=== PATIENT | female | born 1955 | race Caucasian/White ===

== ENCOUNTER 2018-01-20 08:54 | Emergency (ER) | payer OTHER, SELFPAY ==
--- NOTE | 2018-01-20 09:33 | ER ---
Nurse's Notes [facility] Name: Mary Estrada Age: 62 yrs Sex: Female : 1955 Arrival Date: 01/20/2018 Time: 08:57 Bed 7 Private MD: Diagnosis: Hydronephrosis with ureteral stricture, not elsewhere classified-bilateral, extensive lymphadenophy;Cellulitis and acute lymphangitis of trunk-right breast;Hypokalemia Presentation: 01/20 09:12 Presenting complaint: Patient states: intermittent swelling to R axilla x 3 weeks, ss redness to R breast x 1 day and swelling to bilateral lower extremities x [address] Wilkinson has ordered a few tests which have come back negative, and also ordered a ultrasound of her breasts, which pt has yet to have. Transition of care: patient was not received from another setting of care. Onset of symptoms is unknown. Care prior to arrival: None. 09:12 Method Of Arrival: Ambulatory ss 09:12 Acuity: SIMEON 3 ss Historical: - Allergies: 10:42 Sulfa (Sulfonamide Antibiotics); ss 10:42 Morphine; ss - Home Meds: 14:02 hydrochlorothiazide 12.5 mg Oral tab 1 tab once daily [Active]; Albuterol Inhl ph [Active]; montelukast 10 mg oral tab 1 tab once daily [Active]; Serevent Inhl [Active]; - PMHx: 09:14 COPD; ss - PSHx: 09:14 Tonsillectomy; ss - Immunization history:: Adult Immunizations up to date. - Social history:: Smoking status: Patient/guardian denies using tobacco. Screenin:08 Abuse screen: Denies threats or abuse. Denies injuries from another. Nutritional ph screening: No deficits noted. Tuberculosis screening: No symptoms or risk factors identified. Fall Risk None identified. Assessment: 10:08 General: Appears in no apparent distress. comfortable, well groomed, Behavior is calm, ph cooperative, appropriate for age, Denies fever, feeling ill. Pain: Complains of pain in right axilla Pain radiates to right breast. Neuro: Level of Consciousness is awake, alert, obeys commands, Oriented to person, place, time, situation. Cardiovascular: Denies chest pain, shortness of breath, Capillary refill < 3 seconds in bilateral fingers Patient's skin is warm and dry. Edema is 3+ to left ankle, left foot, left toes, right ankle, right foot and right toes. Respiratory: Airway is patent Respiratory effort is even, unlabored, Respiratory pattern is regular, symmetrical. GI: Abdomen is round non-distended, Bowel sounds present X 4 quads. Abd is soft and non tender X 4 quads. Reports nausea, Patient currently denies diarrhea, vomiting. Derm: Skin is intact, is healthy with good turgor, Skin is pink, warm \T\ dry. Musculoskeletal: Circulation, motion, and sensation intact. Range of motion: intact in all extremities, R breast noted to be swollen and firm to touch with redness present. 10:45 Reassessment: Dr. Boucher notified of critical lab value, potassium 2.5. General:. ss 11:32 Reassessment: Patient appears in no apparent distress at this time. Patient and/or ph family updated on plan of care and expected duration. Pain level reassessed. Patient is alert, oriented x 3, equal unlabored respirations, skin warm/dry/pink. Pt returned from CT, Dr Acevedo at bedside to speak w/ pt, pt denies pain or nausea at this time, awaiting room assignment. 12:50 Reassessment: Attempted to call report to second floor, receiving nurse unavailable, pt ph taken to CT. 13:20 Reassessment: Patient appears in no apparent distress at this time. Patient and/or ph family updated on plan of care and expected duration. Pain level reassessed. Patient is alert, oriented x 3, equal unlabored respirations, skin warm/dry/pink. Report called to Indira Alonzo RN, awaiting completion of ECHO before being taken to inpatient room. 13:50 Reassessment: Patient appears in no apparent distress at this time. ERP at bedside to speak w/ pt about CT results and need for transfer. Patient denies pain at this time. 14:08 Reassessment: Attempted to call report to [facility] receiving nurse at lunch, asked to ph call back in 10--15 min. 15:20 Reassessment: Patient appears in no apparent distress at this time. Patient and/or ph family updated on plan of care and expected duration. Pain level reassessed. Patient is alert, oriented x 3, equal unlabored respirations, skin warm/dry/pink. [facility] at bedside, pt transferred to [facility] Patient denies pain at this time. Vital Signs: 09:14 BP 151 / 63; Pulse 84; Resp 18; Temp 98.0(TE); Pulse Ox 97% on R/A; Weight 88 kg; ss Height 5 ft. 6 in. (167.64 cm); Pain 5/10; 10:30 BP 138 / 55; Pulse 77; Resp 18; Pulse Ox 99% on R/A; ph 11:34 BP 131 / 71; Pulse 85; Resp 16; Pulse Ox 98% on R/A; ph 12:33 BP 139 / 68; Pulse 81; Resp 18; Temp 98.4; Pulse Ox 96% on R/A; ph 13:51 BP 142 / 70; Pulse 87; Resp 18; Temp 97.9; Pulse Ox 98% on R/A; ph 09:14 Body Mass Index 31.31 (88.00 kg, 167.64 cm) ED Course: 08:57 Patient arrived in ED. as 09:10 Suresh Boucher MD is Attending Physician. fernando 09:13 Triage completed. ss 09:14 Arm band placed on right wrist. ss 09:23 Clara Brothers, CURTIS is Primary Nurse. ph 09:31 Everette Amezquita DO is Hospitalizing Provider. fernando 09:39 X-ray completed. Portable x-ray completed in exam room. Patient tolerated procedure sw well. 09:41 XRAY Chest (1 view) In Process Unspecified. EDMS 09:44 EKG done, by agriculture laboratory technician. reviewed by Suresh Boucher MD. at1 10:00 Initial lab(s) drawn, by nd, sent to lab. First set of blood cultures drawn Second set mh5 of blood cultures drawn by me. 10:04 Inserted saline lock: 22 gauge in left antecubital area, using aseptic technique. Blood mh5 collected. 10:05 Patient taken to ultrasound. aa4 10:08 Patient has correct armband on for positive identification. Placed in gown. Bed in low ph position. Call light in reach. Side rails up X 1. Pulse ox on. NIBP on. Warm blanket given. 12:34 No provider procedures requiring assistance completed. Patient admitted, IV remains in ph place. 12:52 CT completed. Patient tolerated procedure well. Patient moved to CT via stretcher. jg1 Patient moved back from CT. Administered Medications: 10:00 Drug: NS 0.9% 500 ml Route: IV; Rate: bolus; Site: left antecubital; ph 10:00 Drug: fentaNYL (PF) 25 mcg Route: IVP; Site: left antecubital; ph 10:00 Drug: Zofran 4 mg Route: IVP; Site: left antecubital; ph 11:00 Drug: vancoMYCIN 1 grams Route: IVPB; Infused Over: 2 hrs; Site: left antecubital; ph 11:35 Drug: Potassium Chloride 40 mEq Route: PO; ph 11:35 Drug: Potassium Chloride 20 mEq Route: IV; Rate: per protocol; Site: left antecubital; ph Outcome: 09:33 Decision to Hospitalize by Provider. fernando 13:27 ER care complete, transfer ordered by MD. fernando 15:31 Patient left the ED. ph 15:31 Transferred by ground EMS to [facility], Transfer form completed. ph X-rays sent w/ patient. 15:31 Condition: stable Signatures: Dispatcher [employer] EDMS Suresh Boucher MD MD cha Garcia, Tonja jHaley Will Amanda aa4 Susie Walsh, Joan Arciniega RN, airbrush artist photography EKG Tat1 Clara Brothers RN RN Cathy Hidalgo Maria [facility]
--- NOTE | 2018-01-20 09:33 | EDPHYS ---
Physician Documentation [facility] Name: Mary Estrada Age: 62 yrs Sex: Female : 1955 Arrival Date: 01/20/2018 Time: 08:57 Bed 7 Private MD: Suresh Bojorquez HPI: 01/20 09:26 This 62 yrs old Female presents to ER via Ambulatory with complaints of fernando Breast Problem, Feet Swelling, Nausea. 09:26 The patient presents to the emergency department with nausea. fernando Historical: - Allergies: 10:42 Sulfa (Sulfonamide Antibiotics); ss 10:42 Morphine; ss - Home Meds: 14:02 hydrochlorothiazide 12.5 mg Oral tab 1 tab once daily [Active]; Albuterol Inhl ph [Active]; montelukast 10 mg oral tab 1 tab once daily [Active]; Serevent Inhl [Active]; - PMHx: 09:14 COPD; ss - PSHx: 09:14 Tonsillectomy; ss - Immunization history:: Adult Immunizations up to date. - Social history:: Smoking status: Patient/guardian denies using tobacco. ROS: 09:27 Constitutional: Negative for fever, chills, and weight loss, Eyes: Negative for injury, fernando pain, redness, and discharge, ENT: Negative for injury, pain, and discharge, Neck: Negative for injury, pain, and swelling, Cardiovascular: Negative for chest pain, palpitations, and edema, Respiratory: Negative for shortness of breath, cough, wheezing, and pleuritic chest pain, Abdomen/GI: Negative for abdominal pain, nausea, vomiting, diarrhea, and constipation, Back: Negative for injury and pain, : Negative for injury, bleeding, discharge, and swelling, Skin: Negative for injury, rash, and discoloration, Neuro: Negative for headache, weakness, numbness, tingling, and seizure, Psych: Negative for depression, anxiety, suicide ideation, homicidal ideation, and hallucinations, Allergy/Immunology: Negative for hives, rash, and allergies, Endocrine: Negative for neck swelling, polydipsia, polyuria, polyphagia, and marked weight changes, Hematologic/Lymphatic: Negative for swollen nodes, abnormal bleeding, and unusual bruising. 09:27 MS/extremity: Positive for pain, swelling, tenderness, warmth, of the right breast. Exam: 09:27 Constitutional: This is a well developed, well nourished patient who is awake, alert, fernando and in no acute distress. Head/Face: Normocephalic, atraumatic. Eyes: Pupils equal round and reactive to light, extra-ocular motions intact. Lids and lashes normal. Conjunctiva and sclera are non-icteric and not injected. Cornea within normal limits. Periorbital areas with no swelling, redness, or edema. ENT: Nares patent. No nasal discharge, no septal abnormalities noted. Tympanic membranes are normal and external auditory canals are clear. Oropharynx with no redness, swelling, or masses, exudates, or evidence of obstruction, uvula midline. Mucous membranes moist. Neck: Trachea midline, no thyromegaly or masses palpated, and no cervical lymphadenopathy. Supple, full range of motion without nuchal rigidity, or vertebral point tenderness. No Meningismus. Cardiovascular: Regular rate and rhythm with a normal S1 and S2. No gallops, murmurs, or rubs. Normal PMI, no JVD. No pulse deficits. Respiratory: Lungs have equal breath sounds bilaterally, clear to auscultation and percussion. No rales, rhonchi or wheezes noted. No increased work of breathing, no retractions or nasal flaring. Abdomen/GI: Soft, non-tender, with normal bowel sounds. No distension or tympany. No guarding or rebound. No evidence of tenderness throughout. Back: No spinal tenderness. No costovertebral tenderness. Full range of motion. Female : Normal external genitalia. Skin: Warm, dry with normal turgor. Normal color with no rashes, no lesions, and no evidence of cellulitis. MS/ Extremity: Pulses equal, no cyanosis. Neurovascular intact. Full, normal range of motion. Neuro: Awake and alert, GCS 15, oriented to person, place, time, and situation. Cranial nerves II-XII grossly intact. Motor strength 5/5 in all extremities. Sensory grossly intact. Cerebellar exam normal. Normal gait. Psych: Awake, alert, with orientation to person, place and time. Behavior, mood, and affect are within normal limits. 09:27 Chest/axilla: Inspection: cellulitis, Palpation: tenderness, that is mild, that is moderate, Axilla: lymphadenopathy, that is large, in the right axilla, Breasts: abscess, that is moderate-sized, cellulitis, that is moderate, swelling, tenderness, that is moderate, of the right breast. Vital Signs: 09:14 BP 151 / 63; Pulse 84; Resp 18; Temp 98.0(TE); Pulse Ox 97% on R/A; Weight 88 kg; ss Height 5 ft. 6 in. (167.64 cm); Pain 5/10; 10:30 BP 138 / 55; Pulse 77; Resp 18; Pulse Ox 99% on R/A; ph 11:34 BP 131 / 71; Pulse 85; Resp 16; Pulse Ox 98% on R/A; ph 12:33 BP 139 / 68; Pulse 81; Resp 18; Temp 98.4; Pulse Ox 96% on R/A; ph 13:51 BP 142 / 70; Pulse 87; Resp 18; Temp 97.9; Pulse Ox 98% on R/A; ph 09:14 Body Mass Index 31.31 (88.00 kg, 167.64 cm) ss MDM: 09:10 Patient medically screened. [facility] 09:29 Data reviewed: vital signs, nurses notes, lab test result(s), EKG, radiologic studies, [facility] plain films, ultrasound. 01/20 09:26 Order name: Basic Metabolic Panel; Complete Time: 10:48 [facility] 01/20 09:26 Order name: BNP; Complete Time: 10:39 [facility] 01/20 09:26 Order name: CBC with Diff; Complete Time: 12:32 [facility] 01/20 09:26 Order name: Ckmb; Complete Time: 10:48 [facility] 01/20 09:26 Order name: CPK; Complete Time: 10:48 [facility] 01/20 09:26 Order name: LFT's; Complete Time: 10:48 [facility] 01/20 09:26 Order name: Magnesium; Complete Time: 10:48 [facility] 01/20 09:26 Order name: PT-INR; Complete Time: 11:37 [facility] 01/20 09:26 Order name: Ptt, Activated; Complete Time: 11:37 [facility] 01/20 09:26 Order name: Troponin (emerg Dept Use Only); Complete Time: 10:39 [facility] 01/20 09:59 Order name: Lipase; Complete Time: 10:39 [facility] 01/20 10:15 Order name: Blood Culture EDMS 01/20 10:47 Order name: Phosphorus [facility] 01/20 09:26 Order name: XRAY Chest (1 view); Complete Time: 10:39 [facility] 01/20 09:33 Order name: BREAST/AXILLA, LIMITED EDMO 01/20 09:59 Order name: US Extremity Venou Bilateral [facility] 01/20 10:40 Order name: CT Chest For PE Angio [facility] 01/20 11:07 Order name: VAS; Complete Time: 11:37 EDMO 01/20 11:29 Order name: US; Complete Time: 11:37 EDMO 01/20 11:31 Order name: Phosphorus; Complete Time: 11:37 EDMO 01/20 11:37 Order name: CT; Complete Time: 12:32 [facility] 01/20 11:46 Order name: CBC Smear Scan; Complete Time: 12:32 [facility] 01/20 12:44 Order name: CT Stone Protocol [facility] 01/20 13:13 Order name: CT; Complete Time: 13:21 [facility] 01/20 09:26 Order name: EKG; Complete Time: 09:26 [facility] 01/20 09:26 Order name: Cardiac monitoring; Complete Time: 10:06 [facility] 01/20 09:26 Order name: EKG - Nurse/Tech; Complete Time: 11:36 [facility] 01/20 09:26 Order name: IV Saline Lock; Complete Time: 10:06 [facility] 01/20 09:26 Order name: Labs collected and sent; Complete Time: 10:06 [facility] 01/20 09:26 Order name: O2 Per Protocol; Complete Time: 10:06 [facility] 01/20 09:26 Order name: O2 Sat Monitoring; Complete Time: 11:36 [facility] 01/20 09:26 Order name: Urine Dipstick-Ancillary (obtain specimen); Complete Time: 11:36 [facility] 01/20 09:37 Order name: CONS Physician Consult EDMO Administered Medications: 10:00 Drug: NS 0.9% 500 ml Route: IV; Rate: bolus; Site: left antecubital; ph 10:00 Drug: fentaNYL (PF) 25 mcg Route: IVP; Site: left antecubital; ph 10:00 Drug: Zofran 4 mg Route: IVP; Site: left antecubital; ph 11:00 Drug: vancoMYCIN 1 grams Route: IVPB; Infused Over: 2 hrs; Site: left antecubital; ph 11:35 Drug: Potassium Chloride 40 mEq Route: PO; ph 11:35 Drug: Potassium Chloride 20 mEq Route: IV; Rate: per protocol; Site: left antecubital; ph Disposition: 01/20/18 13:27 Transfer ordered to [facility]. Diagnosis are Hydronephrosis with ureteral stricture, not elsewhere classified - bilateral, extensive lymphadenophy, Cellulitis and acute lymphangitis of trunk - right breast, Hypokalemia. - Reason for transfer: Higher level of care. - Accepting physician is to [facility]. - Condition is Fair. - Problem is new. - Symptoms have improved. Signatures: Dispatcher [employer] EDMS Suresh Boucher MD MD cha Smirch, Shelby, RN RN Lore Maza Patricia, RN RN ph Corrections: (The following items were deleted from the chart) 09:33 09:27 Extrmty Nonvasular Limited+US.RAD.BRZ ordered. EDMS EDMS
[2018-01-20] MEDS ORDERED: VANCOMYCIN/NS 1 gm 1 GM/250 ML BAG ONE (09:57)
[2018-01-20] MEDS ORDERED: NA CHLORIDE 0.9% 1,000 ML ONE (09:57)
[2018-01-20] MEDS ORDERED: FENTANYL CITR 100 MCG/2 ML ONE (09:57)
[2018-01-20] MEDS ORDERED: ONDANSETRON 4 MG/2 ML VIAL ONE (09:57)
[2018-01-20] MEDS ORDERED: ALBUTEROL 2.5 MG/3 ML NEB SOL NEB PRN (10:02)
[2018-01-20] MEDS ORDERED: TRAMADOL HCL 50 MG TAB PO PRN (10:02)
[2018-01-20] MEDS ORDERED: ONDANSETRON 4 MG/2 ML VIAL IV PRN (10:02)
[2018-01-20] MEDS ORDERED: HYDROCODONE/APAP 7.5/325 MG TAB PO PRN (10:02)
[2018-01-20] MEDS ORDERED: ACETAMINOPHEN 500 MG TAB PO PRN (10:02)
[2018-01-20] MEDS ORDERED: IPRATROPIUM BROM 0.5MG/2.5ML NEB PRN (10:02)
--- NOTE | 2018-01-20 10:15 | P.HP ---
Certification for Inpatient Patient admitted to: Inpatient With expected LOS: >2 Midnights Patient will require the following post-hospital care: None Practitioner: I am a practitioner with admitting privileges, knowledge of patient current condition, hospital course, and medical plan of care. Services: Services provided to patient in accordance with Admission requirements found in Title 42 Section 412.3 of the Code of Federal Regulations Patient History Date of Service: 01/20/18 Primary Care Provider: Dr. Fong Reason for admission: Right axillary pain, mass, erythema History of Present Illness: 62-year-old female presented to the emergency room with multiple complaints including right axillary mass with erythema, erythema to the right breast, and lower extremity edema. The patient reports that she was recently seen by her PCP for a right axillary mass/nodule. She had noted this for the last 3 weeks. The patient was recently sent for mammogram. This was done at [facility]. After the procedures over the next couple of days she started to notice increasing swelling, erythema to the right breast. She also reported increase in size of the axillary nodule. She also reported some edema to the lower extremities bilaterally which was unusual for her. She denied any fever, chills. No complaints of shortness of breath or chest pain noted. Patient with history of COPD and GERD. Patient had results of the mammogram showing a 6 mm and 4 mm lesion to the right breast in the upper outer quadrant. Bilateral ultrasound was recommended. She came to the ER due to increasing symptoms. In the ER she was evaluated. Patient found to have erythema to the right breast. A large area of inflammation to the right axillary region noted. Lab pending at this time. Patient has been admitted for further evaluation to evaluate for possible infectious versus inflammatory process. Surgery has been consulted. When I saw the patient ER, she appeared comfortable. Patient reports no history of tobacco use. The most recent mammogram was her 1st. There is a family history of lung cancer, CHF, diabetes and hypertension. Lower extremity edema is new. She was recently given hydrochlorothiazide to help with the swelling to her legs. Home medications list reviewed: Yes - Past Medical/Surgical History Diabetic: No -: COPD -: GERD -: Obesity -: Tonsillectomy -: -: Left wrist repair Psychosocial/ Personal History: She is . She has 1 child. She works at a local [employer]. - Family History Father -: Heart disease Mother -: Heart disease, Hypertension, Diabetes Brother -: Cancer (Lung cancer) Sister -: Cancer (Lung cancer) - Social History Smoking Status: Never smoker Alcohol use: Yes CD- Drugs: No Caffeine use: Yes Place of Residence: Home Review of Systems General: As per HPI Eyes: Unremarkable ENT: Unremarkable Respiratory: Unremarkable Cardiovascular: Edema, As per HPI Gastrointestinal: Unremarkable Genitourinary: Unremarkable Musculoskeletal: Pedal edema, As per HPI Integumentary: As per HPI Neurological: Unremarkable Lymphatics: Unremarkable Physical Examination - Physical Exam General: Alert, In no apparent distress, Oriented x3, Cooperative HEENT: Atraumatic, Normocephalic, PERRLA, Mucous membr. moist/pink Neck: Supple, No Thyromegaly Respiratory: Clear to auscultation bilaterally, Normal air movement Cardiovascular: Normal pulses, Regular rate/rhythm Gastrointestinal: Normal bowel sounds, Soft and benign, Non-distended, No masses , No rebound, No guarding Musculoskeletal: No tenderness, No warmth, Swelling (Swelling to the lower extremities bilateral about 1 to 2+) Integumentary: Other (There is a large dense area to the right axillary area. It measures about 2 inches in diameter. There is also erythema to this area. Erythema also noted to the right breast. No warmth is noted. No discharge noted. As mentioned above 1 to 2+ pitting edema to the lower extremities bilateral noted) Neurological: Normal speech, Normal strength at 5/5 x4 extr, Normal tone, Normal affect Lymphatics: Axilla lymphadenopathy (As above) Assessment and Plan - Problems (Diagnosis) (1) Mass of axillary tail of right breast Current Visit: Yes Status: Acute Plan: Mass noted to the axillary tell to the right breast with noted erythema. Infectious versus inflammatory process will need to be evaluated. Bilateral mammogram to be obtained. Surgery to evaluate. Patient started on IV antibiotic therapy. Patient may require biopsy. Await further recommendations from surgery. I will be out of town this weekend. Dr. Evelin peck will cover (2) Cellulitis of breast Current Visit: Yes Status: Suspected Plan: Suspect cellulitis to the right breast. Antibiotics started. Blood cultures obtained. Continue as above. (3) Edema Current Visit: Yes Status: Acute Plan: Edema to the lower extremities also noted. Will start IV Lasix. Will check echocardiogram. There is a family history of CHF. Will need to rule out DVT. Qualifiers: Edema type: unspecified Qualified Code(s): R60.9 - Edema, unspecified (4) COPD (chronic obstructive pulmonary disease) Current Visit: Yes Status: Chronic Plan: Continue with medication Qualifiers: COPD type: chronic bronchitis Chronic bronchitis type: unspecified Qualified Code(s): J42 - Unspecified chronic bronchitis (5) GERD (gastroesophageal reflux disease) Current Visit: Yes Status: Chronic Plan: Start PPI Qualifiers: Esophagitis presence: esophagitis presence not specified Qualified Code(s) : K21.9 - Gastro-esophageal reflux disease without esophagitis (6) Obesity Current Visit: Yes Status: Chronic Plan: Will address lifestyle modification (7) Abnormal mammogram Current Visit: Yes Status: Acute Plan: Recent mammogram showed 2 lesions to the right upper quadrant of the breast measuring 6 mm and 4 mm. Breast ultrasound was recommended. Will obtain breast ultrasound at this time. Surgery consulted. Patient on IV antibiotic therapy for possible infectious process. Inflammatory is also on the differential. Discharge Plan: Home Plan to discharge in: Greater than 2 days - Advance Directives Does patient have a Living Will: No Does patient have a Durable POA for Healthcare: No - Code Status/Comfort Care Code Status Assessed: Yes Time Spent Managing Pts Care (In Minutes): 55
[2018-01-20 10:16] LABS: Absolute Lymphocytes (CBC) 0.4 K/uL (0.7-4.9); Absolute Monocytes 0.5 K/uL (0.1-1.3); Absolute Neutrophil 5.8 K/uL (1.8-8.0); Basophils % 0.5 % (0-1.3); Eosinophils % 1.6 % (0-4.4); Hematocrit 33.8 % (36.0-45.0); Lymphocytes % 5.6 % (15.3-44.8); MCH 28.5 pg (27.0-35.0); MCV 83.2 fL (80-100); MPV 7.9 fL (7.6-11.3); Monocytes % 6.9 % (3.3-12.3); RBC Red Blood Cell Count 4.06 M/uL (3.86-4.86)
[2018-01-20 10:29] LABS: Albumin 3.9 g/dL (3.2-5.5); Bilirubin Direct 0.2 mg/dL (0-0.2); Bilirubin Total 0.9 mg/dL (0.3-1.2); Magnesium 1.9 mg/dL (1.8-2.5); Protein, Total 6.1 g/dL (6.0-8.3)
[2018-01-20 10:32] LABS: CKMB Creatine Kinase MB 2.2 ng/ml (0.3-4.0)
--- NOTE | 2018-01-20 10:34 | RAD REPORT ---
EXAM DESCRIPTION: RAD - Chest Single View - 01/20/2018 9:42 am CLINICAL HISTORY: Shortness of breath. COMPARISON: 11/24/2010 FINDINGS: Portable technique limits examination quality. Mild interstitial prominence is present. Ill-defined opacities with small pleural effusions in both l monique bases may represent atelectasis or infiltrate. The heart is mildly enlarged in size. No displaced fractures. IMPRESSION: Mild CHF/ volume overload pattern. Basilar opacities, greater on the right, may represent atelectasis or developing pneumonia.
[2018-01-20 10:41] LABS: Protime INR 1.16
[2018-01-20 10:44] LABS: Potassium 2.5 mEq/L (3.6-5.0)
--- NOTE | 2018-01-20 11:06 | RAD REPORT ---
EXAM DESCRIPTION: VASExtrem Venous W Compress Bil01/20/2018 10:57 am CLINICAL HISTORY: Bilateral leg swelling/pain COMPARISON: none FINDINGS: The common femoral, superficial femoral, popliteal and posterior tibial veins bilaterally are compressible and demonstrate augmentation. Doppler demonstrates good flow. Bilateral inguinal lymph nodes are present. The largest short axis measures 11 centimeters. IMPRESSION: No evidence of deep venous thrombosis involving either lower extremity. Nonspecific mildly enlarged inguinal lymph nodes.
--- NOTE | 2018-01-20 11:29 | RAD REPORT ---
EXAM DESCRIPTION: US - BREAST/AXILLA, COMPLETE - 01/20/2018 10:23 am CLINICAL HISTORY: Palpable mass pain and swelling right axilla and right breast. COMPARISON: CT chest dated 01/20/2018. FINDINGS: Large hypoechoic mass is seen in the right axillary region measuring up to 5 x 4 cm, likel y neoplastic. Several hypoechoic lesions are also present in the right upper outer quadrant of the br east and right lower outer quadrant measuring 1-2 cm. Edema and swelling of the right breast tissues noted. IMPRESSION: Large hypoechoic mass in the right axilla with several rounded hypoechoic lesions in the outer right breast noted. Given the findings of extensive lymphadenopathy seen on recent CT, the fin ding seen on this study are likely related lymphoma.
--- NOTE | 2018-01-20 11:36 | RAD REPORT ---
EXAM DESCRIPTION: CT - Chest For Pe Angio - 01/20/2018 11:12 am CLINICAL HISTORY: Cough/chest pain/right axillary pain and swelling. COMPARISON: 2009. TECHNIQUE: Dynamically enhanced axial 3 mm thick images of the chest were obtained during administra tion of <100> mL Isovue 370 IV contrast. Coronal and oblique reconstruction images were generated and reviewed. Exam utilizes a protocol for optimal evaluation of pulmonary arterial tree. All CT scans are performed using dose optimization technique as appropriate and may include automated exposure control or mA/KV adjustment according to patient size. FINDINGS: A pulmonary embolism is not seen. A thoracic aortic aneurysm is not noted. A small left and small to moderate right pleural effusions are present. Marked right axillary lymphadenopathy is present. The largest lymph node measures 3.2 cm. Mild-to-mod erate left axillary lymphadenopathy is seen. Right hilar lymphadenopathy is present. Mild mediastinal lymphadenopathy is noted. Images of the upper abdomen demonstrate marked periaortic lymphadenopathy. The superior aspect of the kidneys demonstrate mild hydronephrosis bilaterally. Right middle lobe atelectasis is present. A lung consolidation is not seen. Trace pericardial effusion is present. Several right breast nodules are present with the largest cole uring 1.7 centimeters. Couple of smaller left breast nodules are seen. IMPRESSION: 1. Negative for a pulmonary embolus. 2. Marked right axillary and qpza-me-pigsopfa left axillary lymphadenopathy. Boye-gr-lovdcblj right h ilar and mild mediastinal lymphadenopathy is present. Marked para-aortic lymphadenopathy within the u pper abdomen is seen. These findings most likely represent lymphoma. Metastatic disease is a less lik terri consideration. 3. Small to moderate right and small left pleural effusions. 4. Right middle lobe atelectasis. 5. Mild bilateral hydronephrosis. CT abdomen and pelvis would be helpful to see if enlarged lymph nod es are obstructing the ureters
[2018-01-20] MEDS ORDERED: KCL 20 MEQ/100 mL IVPB 20 MEQ/100 ML BAG IV ONE (11:41)
[2018-01-20] MEDS ORDERED: POTASSIUM CL SA 10 MEQ TAB PO ONE (11:41)
[2018-01-20 11:45] LABS: Blood Morphology Comment NOT SEEN (NOT SEEN); Platelet Estimate ADEQ; Urine White Blood Cell Casts OK
[2018-01-20] MEDS ORDERED: PIPER/TAZO/NS 3.375gm 3.375 GM/100 ML BAG IVPB SCH (12:30)
[2018-01-20] MEDS ORDERED: CEFEPIME 0 GM/0 ML BAG IV ONE (13:00)
--- NOTE | 2018-01-20 13:13 | RAD REPORT ---
EXAM DESCRIPTION: CT - Stone Protocol - 01/20/2018 12:58 pm CLINICAL HISTORY: Abdominal pain. Lymphadenopathy COMPARISON: CT chest on the same date TECHNIQUE: Computed axial tomography of the abdomen pelvis was obtained. Contrast from a prior CT ex am is present within the genitourinary system. All CT scans are performed using dose optimization technique as appropriate and may include automated exposure control or mA/KV adjustment according to patient size. FINDINGS: Moderate right and gshz-jp-eaphqfpp left hydronephrosis is present. Soft tissue is present surrounding the renal matthew and proximal and mid ureters consistent with lymphadenopathy. This obstru cts the ureters. Additional periaortic appy is present. Lymphadenopathy involves the iliac chains ri ght greater than left. Conglomerate of lymph nodes within the periaortic region of the upper abdomen measures 6.4 x 6.2 centimeters. Mesenteric lymphadenopathy is seen. The liver, spleen, pancreas and adrenals appear grossly normal. A small hepatic cyst is suspected. There is no evidence of diverticulitis. The appendix appears normal IMPRESSION: Moderate to marked lymphadenopathy. This obstructs the ureter is not resulting in modera te right and mild to moderate left hydronephrosis . The patient most likely has lymphoma
--- NOTE | 2018-01-20 14:04 | EKG ---
Test Date: 2018-01-20 Test Time: 09:33:27 County Treasurer: BEN MEASUREMENT RESULTS: Intervals: Rate: 79 MN: 150 QRSD: 136 QT: 422 QTc: 483 [place]: P: 83 MN: 150 QRS: 70 T: 68 INTERPRETIVE STATEMENTS: Normal sinus rhythm Right bundle branch block Abnormal ECG Compared to ECG 11/24/2010 05:36:53 No significant changes Electronically Signed On 01-20-18 14:03:40 CDT by Neri Burch
--- NOTE | 2018-01-20 14:52 | ECHO ---
HEIGHT: 5 ft 7in WEIGHT: 193 lb oz DATE OF STUDY: 01/20/[address]: Everette Amezquita DO 2-DIMENSIONAL: YES M.MODE: YES DOPPLER: YES COLOR FLOW: YES TDS: NO PORTABLE: NO DEFINITY: NO BUBBLE STUDY: NO DIAGNOSIS: EDEAM TO LOWER EXTREMITIES, FAMILY HISTORY OF CONGESTIVE HEART FAILURE CARDIAC HISTORY: CATHERIZATION: NO SURGERY: NO PROSTHETIC VALVE: NO PACEMAKER: NO MEASUREMENTS (cm) DIASTOLIC (NORMALS) SYSTOLIC (NORMALS) IVSd 1.0 (0.6-1.2) LA Diam 3.2 (1.9-4.0) LVEF 68% LVIDd 4.5 (3.5-5.7) LVIDs 2.8 (2.0-3.5) %FS 38% LVPWd 1.0 (0.6-1.2) Ao Diam 2.8 (2.0-3.7) 2 DIMENSIONAL ASSESSMENT: RIGHT ATRIUM: NORMAL LEFT ATRIUM: NORMAL RIGHT VENTRICLE: NORMAL LEFT VENTRICLE: NORMAL TRICUSPID VALVE: NORMAL MITRAL VALVE: NORMAL PULMONIC VALVE: NORMAL AORTIC VALVE: NORMAL PERICARDIAL EFFUSION: NONE AORTIC ROOT: NORMAL LEFT VENTRICULAR WALL MOTION: NORMAL. DOPPLER/COLOR FLOW: MILD TRICUSPID REGURGITATION. NORMAL RIGHT VENTRICULAR SYSTOLIC PRESSURE. COMMENTS: NORMAL 2D ECHO. MILD TRICUSPID REGURGITATION. TECHNOLOGIST: LAURA CARRILLO
--- NOTE | 2018-01-20 16:43 | CON ---
Date of Consultation: 01/20/2018 Reason For Consultation: Mass, right axilla; rule out infection right breast. History Of Present Illness: The patient is a 62-year-old female, who presented to the emergency room complaining right axillary mass, which was increasing in size associated with erythema of the right breast, increasing lower extremity edema, and overall weakness. She had seen a PCP and she had order ed a mammogram, the reports I do not have, but I was told the mammogram showed a mass in the right up per quadrant, 6 mm and 4 mm. An ultrasound was also recommended and because her redness became worse after the mammogram, she was concerned and also she was feeling weaker so she came to the emergency room. No fever or chills. No open wounds. Just malaise. No sore throat, runny nose, cough, headac hes, or dizziness. No chest pain. Review of Systems: Otherwise unremarkable. Past Medical History: COPD, GERD, CHF, obesity. Past Surgical History: Tonsillectomy, , and left wrist surgery. Allergies: MORPHINE AND SULFA. Social History: She does not smoke. Drinks occasionally. Family History: Significant for heart disease, hypertension, diabetes and siblings with lung cancer. Physical Examination: Vital Signs: Stable. She is currently afebrile. General: She is awake, alert, and oriented x3. Head and Neck: Cranial nerves 2 through 12 are grossly within normal limits. No neck masses. No JV D. Throat clear. Neck is supple. Chest: Clear. Heart: S1, S2. Abdomen: Soft. Extremities: Positive 2+ pitting edema in the lower extremities. Right axilla has a fixed 6 x 6 cm mass. Right breast shows no palpable masses; however, is erythematous. There is no induration and t here is no fever. Laboratory Data: Shows a white count of 6.8, H and H of 11.6 and 33.8. There is a left shift. INR is 1.16. Chemistry shows potassium 2.5, AST is 45. The patient had an ultrasound done showed a larg e hypoechoic mass in the right axilla with several rounded hypodensities in the outer right breast. Given the findings of extensive lymphadenopathy seen on recent CT, the findings seen on this study ar e likely related to lymphoma. She had a CT of the chest and thorax. It is negative for pulmonary em bolus. There is marked right axillary and rgxl-qv-rjatkotb left axillary lymphadenopathy, mild-to-mo derate right hilar and mild mediastinal lymphadenopathy is present. Mild periaortic lymphadenopathy within the upper abdomen is seen. These findings most likely represent lymphoma, small to moderate r ight and left pleural effusions, right middle lobe atelectasis, mild bilateral hydronephrosis. Assessment: A 62-year-old female with multiple medical problems including congestive heart failure h ypokalemia with lymphoma likely. Recommendations: Medical management of the patient at this point for the hyperkalemia and CHF and sh e needs an ultrasound-guided biopsy as soon as possible to get the diagnosis so she can begin her roxann atment. The plan of care was discussed in detail with the patient as well as Dr. Amezquita. Please re- consult Surgery phector /MODL Voice ID: [id number] Report ID: [id number]
[2018-01-20] MEDS ORDERED: FUROSEMIDE 20 MG/ 2ML VIAL IV SCH (17:00)
[2018-01-20] MEDS ORDERED: ENOXAPARIN 40 MG/0.4 ML SQ SCH (17:00)
[2018-01-20] MEDS ORDERED: ARFORMOTEROL TARTRATE 15 MCG/2 ML VIAL.NEB NEB SCH (20:00)
[2018-01-21] MEDS ORDERED: PANTOPRAZOLE 40MG TABLET PO SCH (06:30)
[2018-01-21] MEDS ORDERED: VANCOMYCIN 1 GM in NA CHLORIDE 0.9% 500 ML IVPB SCH (09:00)
== END 2018-01-20 15:31 | disposition short-term general hospital (02) ==
LOC: ER 08:54 → ERHOLD 09:34 → UNDOADMIN 09:34
DX: N61.0 Mastitis without abscess (principal); E87.6 Hypokalemia; N13.1 Hydronephrosis with ureteral stricture, not elsewhere classified; N63.31 Unspecified lump in axillary tail of the right breast; R59.1 Generalized enlarged lymph nodes; I50.9 Heart failure, unspecified; E66.9 Obesity, unspecified; J44.9 Chronic obstructive pulmonary disease, unspecified; Z88.2 Allergy status to sulfonamides; Z88.5 Allergy status to narcotic agent
CPT/HCPCS: 36415; 71045; 71275; 74176; 76377; 76641; 80048; 80076; 82550; 82553; 83690; 83735; 83880; 84100; 84484; 85025; 85610; 85730; 93005; 93306; 93970; 96374; 96375; 99285; J0692; J2405; J2543; J3010; J3370; J7030; J7605; Q9967

== ENCOUNTER 2018-02-17 07:50 | Day surgery (SDC) | payer OTHER, SELFPAY ==
--- NOTE | 2018-02-16 17:01 | RAD REPORT ---
EXAM DESCRIPTION: RAD - Chest Pa And Lat (2 Views) - 02/16/2018 4:55 pm CLINICAL HISTORY: Shortness of breath. COMPARISON: 01/20/2018 FINDINGS: Small left and a small to moderate right pleural effusion noted. The lungs are diffusely e mphysematous. The heart is mildly enlarged in size. No displaced fractures. IMPRESSION: Bilateral pleural effusions, slightly larger on the right.
[2018-02-16 17:17] LABS: Absolute Lymphocytes (CBC) 0.5 K/uL (0.7-4.9); Absolute Monocytes 0.5 K/uL (0.1-1.3); Absolute Neutrophil 4.7 K/uL (1.8-8.0); Basophils % 0.6 % (0-1.3); Eosinophils % 2.2 % (0-4.4); Hematocrit 32.3 % (36.0-45.0); Lymphocytes % 8.4 % (15.3-44.8); MCH 28.1 pg (27.0-35.0); MCV 83.4 fL (80-100); MPV 8.1 fL (7.6-11.3); Monocytes % 8.3 % (3.3-12.3); RBC Red Blood Cell Count 3.87 M/uL (3.86-4.86)
[2018-02-16 17:41] LABS: Potassium 5.1 mEq/L (3.6-5.0)
--- NOTE | 2018-02-17 06:45 | EKG ---
Test Date: 2018-02-16 Test Time: 16:45:43 Boatswains Mate: MARTIN MEASUREMENT RESULTS: Intervals: Rate: 87 IA: 142 QRSD: 126 QT: 380 QTc: 457 [place]: P: 79 IA: 142 QRS: 63 T: 68 INTERPRETIVE STATEMENTS: Normal sinus rhythm Right bundle branch block Abnormal ECG Compared to ECG 01/20/2018 09:33:27 no significant change from previous ECG Electronically Signed On 02-17-18 06:45:14 CDT by Neri Burch
[2018-02-17] MEDS ORDERED: Ringers Lactate 1,000 ML IV ONE (07:54)
[2018-02-17] MEDS ORDERED: CEFAZOLIN/SWI 1gm 1 GM/10 ML SYR ONE (07:54)
[2018-02-17] MEDS ORDERED: BUPIVACAINE 0.5% PF 10 ML VIAL ONE (08:15)
[2018-02-17] MEDS ORDERED: PROPOFOL 200 MG/20 ML VIAL IV ONE (08:51)
[2018-02-17] MEDS ORDERED: LIDOCAINE 2% MPF 5 ML VIAL ONE (08:52)
[2018-02-17] MEDS ORDERED: MIDAZOLAM HCL 2 MG/2 ML INJ ONE (08:52)
[2018-02-17] MEDS ORDERED: FENTANYL CITR 100 MCG/2 ML ONE (08:52)
--- NOTE | 2018-02-17 21:47 | OP ---
Date of Procedure: 02/17/2018 Surgeon: Conner Acevedo MD Snaker Driving Horses: Bella Carlin, certified CUTTER DOWN Preoperative Diagnosis: Lymphoma, right axillary mass. Postoperative Diagnosis: Lymphoma, right axillary mass. Procedure Performed: Excisional biopsy, right axillary mass. Estimated Blood Loss: Minimal. Specimen: Right axillary mass. Findings: As above. Anesthesia: MAC. Complications: None. Disposition: The patient tolerated the procedure in stable condition and was taken to Recovery in go od general condition. Procedure In Detail: The patient was brought to the OR and placed in supine position. MAC anesthesi a was begun. The patient was prepped and draped in usual sterile fashion. Marcaine 0.5% was infiltr ated locally. A 15-blade was used to make a 4-cm incision. Subcutaneous tissue was divided. Deep t o the subcutaneous tissue, a large lymph node with disease was identified. It was a very large mass, but we just did an incisional biopsy. An area of approximately 3 x 1 cm was incised into, excised, and then sent to pathology fresh. Wound was irrigated. Bleeding was controlled with cautery. A 3-0 chromic was used for subcutaneous tissue and to close the skin. Sterile dressing was applied. The patient was awakened and taken to Recovery in good general condition. DISCHARGE NOTE The patient will be discharged home when stable. Disposition: Home. Condition: Stable. Discharge Instructions: Resume home medications and diet. Activity as tolerated. No heavy lifting. Remove outer dressing in 2 days. Shower. Keep wound clean and dry. Follow up in my office in 10 days; call for appointment. [facility]. Tylenol No. 3 one tablet p.o. q.4 h. p.r.n. pain. Keflex 500 mg p.o. q.6 h. /MODL Voice ID: [id number] Report ID: [id number]
== END 2018-02-17 10:53 | disposition home or self-care (01) ==
LOC: OR 07:50
PROVIDERS: ATTEND Surgery
PROC: 07B50ZX Excision of Right Axillary Lymphatic, Open Approach, Diagnostic (ICD-10-PCS; principal; 2018-02-17 09:00)
DX: C85.94 Non-Hodgkin lymphoma, unspecified, lymph nodes of axilla and upper limb (principal)
CPT/HCPCS: 36415; 71046; 80048; 85025; 88305; 93005; J0690; J2250; J3010

== ENCOUNTER 2018-11-10 08:37 | Inpatient (IN) | payer OTHER ==
[2018-11-10] MEDS ORDERED: ADENOSINE 6 MG/ 2ML VIAL IV ONE ×2 (08:47→08:52)
[2018-11-10] MEDS ORDERED: NA CHLORIDE 0.9% 1,000 ML ONE (08:48)
[2018-11-10] MEDS ORDERED: MIDAZOLAM HCL 2 MG/2 ML INJ ONE (08:53)
[2018-11-10] MEDS ORDERED: FENTANYL CITR 100 MCG/2 ML ONE (08:54)
[2018-11-10] MEDS ORDERED: ONDANSETRON 4 MG/2 ML VIAL ONE (08:57)
[2018-11-10 09:16] LABS: Absolute Lymphocytes (CBC) 0.5 K/uL (0.7-4.9); Absolute Monocytes 0.7 K/uL (0.1-1.3); Absolute Neutrophil 5.4 K/uL (1.8-8.0); Basophils % 0.2 % (0-1.3); Eosinophils % 0.3 % (0-4.4); Hematocrit 33.5 % (36.0-45.0); Lymphocytes % 6.8 % (15.3-44.8); MPV 7.5 fL (7.6-11.3); Monocytes % 10.3 % (3.3-12.3); RBC Red Blood Cell Count 3.58 M/uL (3.86-4.86)
[2018-11-10 09:17] LABS: Protime INR 1.46
--- NOTE | 2018-11-10 09:25 | RAD REPORT ---
EXAM DESCRIPTION: RAD - Chest Single View - 11/10/2018 9:17 am CLINICAL HISTORY: DYSPNEA Chest pain. COMPARISON: Chest Pa And Lat (2 Views) dated 02/16/2018; Chest Single View dated 01/20/2018; CHEST PA AN D LAT 2 VIEW dated 11/24/2010; CHEST SINGLE VIEW dated 11/22/2010 FINDINGS: Portable technique limits examination quality. The lungs are mildly emphysematous but clear. The heart is upper limit of normal in size. No displace d fractures. IMPRESSION: No acute intrathoracic process suspected. Prominent COPD.
[2018-11-10 09:40] LABS: Albumin 2.9 g/dL (3.4-5.0); Bilirubin Direct 0.3 mg/dL (0-0.2); Bilirubin Total 0.7 mg/dL (0.2-1.0); Magnesium 1.8 mg/dL (1.8-2.4); Potassium 3.7 mmol/L (3.5-5.1); Protein, Total 6.4 g/dL (6.4-8.2); Troponin (Emerg Dept Use Only) 0.03 ng/mL (0.0-0.045)
[2018-11-10 09:59] LABS: Blood Morphology Comment NOT SEEN (NOT SEEN); Platelet Estimate ADEQ; Urine White Blood Cell Casts OK
--- NOTE | 2018-11-10 10:07 | ER ---
Nurse's Notes [facility] Name: Mary Estrada Age: 63 yrs Sex: Female : 1955 Arrival Date: 11/10/2018 Time: 08:41 Bed 2 Private MD: Diagnosis: Dehydration;Supraventricular tachycardia Presentation: 11/10 08:55 Presenting complaint: EMS states: pt reports feeling weakness and palpitations for sg several days now, denies N/V/D/FEVER. Transition of care: patient was not received from another setting of care. Onset of symptoms was November 10, 2018. Risk Assessment: Do you want to hurt yourself or someone else? Patient reports no desire to harm self or others. Initial Sepsis Screen: Does the patient meet any 2 criteria? RR > 20 per min. HR > 90 bpm. Does the patient have a suspected source of infection? No. Patient's initial sepsis screen is negative. Care prior to arrival: Medication(s) given: Adenosine, 6 mg, x 1, IV initiated. 20 GA, in the right antecubital area. 08:55 Method Of Arrival: EMS: [facility] sg 08:55 Acuity: SIMEON 1 sg Historical: - Allergies: 09:01 Morphine; sg 09:01 Sulfa (Sulfonamide Antibiotics); sg - Home Meds: 09:01 Albuterol Inhl [Active]; hydrochlorothiazide 12.5 mg Oral tab 1 tab once daily sg [Active]; montelukast 10 mg Oral tab 1 tab once daily [Active]; Serevent Inhl [Active]; - PMHx: 09:01 COPD; sg - PSHx: 09:01 Tonsillectomy; sg - Immunization history:: Adult Immunizations up to date. - Social history:: Smoking status: Patient/guardian denies using tobacco. - Ebola Screening: : Patient negative for fever greater than or equal to 101.5 degrees Fahrenheit, and additional compatible Ebola Virus Disease symptoms Patient denies exposure to infectious person Patient denies travel to an Ebola-affected area in the 21 days before illness onset No symptoms or risks identified at this time. Screenin:42 Abuse screen: Denies threats or abuse. Denies injuries from another. Nutritional sg screening: No deficits noted. Tuberculosis screening: No symptoms or risk factors identified. Never had TB. Fall Risk None identified. 09:10 The patient has not been NPO before screening. The patient is alert, able to follow sg commands. The patient does not exhibit slurred or garbled speech The patient is not exhibiting difficulty speaking. The patient does not exhibit difficulty understanding words. The patient is able to swallow own secretions with no drooling or need for suction. Patient tolerated one teaspoon of water. No drooling, immediate coughing, gurgling, or clearing of the throat was noted. The patient tolerated 90mL of water. No drooling, immediate coughing, gurgling, or clearing of the throat was noted. The patient passed the bedside swallow screening. Oral medications may be given as ordered. Contact Physician for further diet orders. Assessment: 08:42 General: Appears in no apparent distress. comfortable, well groomed, well developed, sg well nourished, Behavior is cooperative, appropriate for age, anxious. Pain: Denies pain. Neuro: Level of Consciousness is awake, alert, obeys commands, Oriented to person, place, time, situation, Sales Route Driver are equal bilaterally Moves all extremities. Speech is normal, Facial symmetry appears normal. Cardiovascular: Capillary refill is brisk in bilateral fingers Patient's skin is warm and dry. Chest pain is denied. Respiratory: Airway is patent Respiratory effort is even, unlabored, Respiratory pattern is regular, symmetrical. GI: Abdomen is flat, non-distended. : No signs and/or symptoms were reported regarding the genitourinary system. EENT: No signs and/or symptoms were reported regarding the EENT system. Derm: Skin is healthy with good turgor, is thin, Skin is pale, Skin temperature is warm. Musculoskeletal: No signs and/or symptoms reported regarding the musculoskeletal system. 11:13 Reassessment: Patient appears in no apparent distress at this time. Patient and/or sg family updated on plan of care and expected duration. Pain level reassessed. attempt to call report to room 217, nurse unavailable at this, will attempt to call back when nurse is ready, pt reports understanding, pt daughter and friend at bedside at this time. Vital Signs: 08:35 BP 135 / 80; Pulse 255; Resp 20; Temp 99.5; Pulse Ox 97% on R/A; Weight 83.91 kg; Pain sg 0/10; 08:45 BP 87 / 63; Pulse 252; Resp 19; Pulse Ox 98% on 4 lpm NC; Pain 0/10; sg 08:52 BP 127 / 62; Pulse 121; Resp 19; Pulse Ox 97% on 4 lpm NC; Pain 0/10; sg 10:01 BP 107 / 65; Pulse 95 MON; Resp 17; Pulse Ox 98% on 2 lpm NC; Pain 0/10; sg 11:30 BP 107 / 66; Pulse 87 MON; Resp 18; Temp 99.2; Pulse Ox 98% on R/A; Pain 0/10; sg Vitals: 10:01 Cardiac Rhythm Assessment Sinus rhythm. sg 11:30 Cardiac Rhythm Assessment Sinus rhythm. sg Lowell Coma Score: 11:30 Eye Response: spontaneous(4). Verbal Response: oriented(5). Motor Response: obeys sg commands(6). Total: 15. NIH Stroke Scale Scores: 09:10 NIHSS Score: 0 sg ED Course: 08:38 EKG done, by ED staff, reviewed by Navdeep HOSKINS. at1 08:40 Inserted saline lock: 22 gauge in left wrist, using aseptic technique. Blood collected. sg Oxygen administration via nasal cannula \T\ 4L/min. Thermoregulation: warm blanket given to patient. 08:41 Patient arrived in ED. ss 08:42 Patient has correct armband on for positive identification. Bed in low position. Call sg light in reach. Side rails up X2. patient monitor on. Pulse ox on. NIBP on. Head of bed elevated. 08:45 Arm band placed on. sg 08:49 EKG done, by product technician. reviewed by Navdeep HOSKINS post cardioversion. at1 08:49 Assist provider with cardioversion (synchronized) with defibrillator, for treatment of sg SVT with 200 joules Set up for procedure. Performed by Navdeep HOSKISN Monitored with residential monitor, pulse ox, Post procedure rhythm is sinus rhythm. Patient tolerated well. 08:54 Navdeep Fontenot PA is [facility]. jr8 08:54 Sylvia Roberto MD is Attending Physician. jr8 08:55 Keith Cuenca, CURTIS is Primary Nurse. sg 08:57 Triage completed. sg 10:06 Jeri Tilley MD is Hospitalizing Provider. jr8 11:16 Diet: Patient given snack. Tolerated well. sg 11:50 Patient admitted, IV remains in place. intact, No redness/swelling at site. sg Administered Medications: 08:40 Drug: Adenocard 12 mg Route: IVP; Site: right antecubital; sg 08:42 Drug: NS 0.9% 1000 ml Route: IV; Rate: 1000 ml; Site: right antecubital; sg 08:43 Drug: Adenocard 12 mg Route: IVP; Site: right antecubital; sg 08:45 Drug: fentaNYL (PF) 50 mcg Route: IVP; Site: right antecubital; sg 08:49 Drug: Versed 2 mg Route: IVP; Site: right antecubital; sg 08:50 Drug: NS 0.9% 1000 ml Route: IV; Rate: 1000 ml; Site: left wrist; sg Outcome: 10:06 Decision to Hospitalize by Provider. jr8 11:50 Admitted to Tele family with patient, via wheelchair, room 217, with oxygen, on sg monitor, with chart, Report called to CURTIS PENNINGTON 11:50 Condition: stable 11:50 Instructed on the need for admit, safety practices, Demonstrated understanding of instructions. 11:57 Patient left the ED. NIH Stroke Scale - NIH Stroke Score Date: 11/10/2018 Time: 09:10 Total Score = 0 1a. Level of Consciousness (LOC) - 0(Alert) 1b. Level of Consciousness (LOC) (Year \T\ Age) - 0(Both) 1c. LOC Commands (Open \T\ Closes Eyes/Limousine Driver) - 0(Both) 2. Best Gaze (Lateral Gaze Paresis) - 0(Normal) 3. Visual Field Loss - 0(No visual loss) 4. Facial Palsy - 0(Normal) 5a. Left Arm: Motor (10-second hold) - 0(No drift) 5b. Right Arm: Motor (10-second hold) - 0(No drift) 6a. Left Leg: Motor (5-second hold - always test supine) - 0(No drift) 6b. Right Leg: Motor (5-second hold - always test supine) - 0(No drift) 7. Limb Ataxia (finger/nose \T\ heel/jean-baptiste - test with eyes open) - 0(Absent) 8. Sensory Loss (pinprick arms/legs/face) - 0(Normal) 9. Best Language: Aphasia (description/naming/reading) - 0(No aphasia) 10. Dysarthria (speech clarity - read or repeat words) - 0(Normal) 11. Extinction and Inattention (visual/tactile/auditory/spatial/personal) - 0(No abnormality) Initials: sg Signatures: Keith Cuenca, RN RN Susie Hicks RN RN Navdeep Meyer PA PA jr8 Joan Machado, candy cooker helper EKG Tat1
--- NOTE | 2018-11-10 10:07 | EDPHYS ---
Physician Documentation [facility] Name: Mary Estrada Age: 63 yrs Sex: Female : 1955 Arrival Date: 11/10/2018 Time: 08:41 Bed 2 Private MD: ED Physician Sylvia Roberto HPI: 11/10 10:52 This 63 yrs old Female presents to ER via EMS with complaints of Decreased jr8 Appetite, rapid heart rate. 10:52 Patient stated that she has not been feeling well for about one week. Has had decreased jr8 appetite and general weakness. Today became acute dizzy and felt her heart racing. Currently a caner patient with Non Hodgkins lymphoma undergoing suppressive treatment but has been doing well on it thus far. Stated that she has not been drinking near the fluids she is suppose to . Severity of symptoms: At their worst the symptoms were moderate in the emergency department the symptoms are unchanged. The patient has not experienced similar symptoms in the past. The patient has not recently seen a physician. 10:52 Patient came via EMS. HR 250 with hypotension in the 90s . jr8 Historical: - Allergies: 09:01 Morphine; sg 09:01 Sulfa (Sulfonamide Antibiotics); sg - Home Meds: 09:01 Albuterol Inhl [Active]; hydrochlorothiazide 12.5 mg Oral tab 1 tab once daily sg [Active]; montelukast 10 mg Oral tab 1 tab once daily [Active]; Serevent Inhl [Active]; - PMHx: 09:01 COPD; sg - PSHx: 09:01 Tonsillectomy; sg - Immunization history:: Adult Immunizations up to date. - Social history:: Smoking status: Patient/guardian denies using tobacco. - Ebola Screening: : Patient negative for fever greater than or equal to 101.5 degrees Fahrenheit, and additional compatible Ebola Virus Disease symptoms Patient denies exposure to infectious person Patient denies travel to an Ebola-affected area in the 21 days before illness onset No symptoms or risks identified at this time. ROS: 10:52 Eyes: Negative for injury, pain, redness, and discharge, ENT: Negative for injury, jr8 pain, and discharge, Neck: Negative for injury, pain, and swelling, Respiratory: Negative for shortness of breath, cough, wheezing, and pleuritic chest pain, Abdomen/GI: Negative for abdominal pain, nausea, vomiting, diarrhea, and constipation, Back: Negative for injury and pain, MS/Extremity: Negative for injury and deformity, Skin: Negative for injury, rash, and discoloration. 10:52 Cardiovascular: Positive for palpitations, Negative for chest pain, edema, orthopnea. 10:52 Neuro: Positive for dizziness, Negative for altered mental status, headache, loss of consciousness, seizure activity, syncope, near syncope. Exam: 10:52 Eyes: Pupils equal round and reactive to light, extra-ocular motions intact. Lids and jr8 lashes normal. Conjunctiva and sclera are non-icteric and not injected. Cornea within normal limits. Periorbital areas with no swelling, redness, or edema. ENT: Nares patent. No nasal discharge, no septal abnormalities noted. Tympanic membranes are normal and external auditory canals are clear. Oropharynx with no redness, swelling, or masses, exudates, or evidence of obstruction, uvula midline. Mucous membranes moist. Neck: Trachea midline, no thyromegaly or masses palpated, and no cervical lymphadenopathy. Supple, full range of motion without nuchal rigidity, or vertebral point tenderness. No Meningismus. Respiratory: Lungs have equal breath sounds bilaterally, clear to auscultation and percussion. No rales, rhonchi or wheezes noted. No increased work of breathing, no retractions or nasal flaring. Abdomen/GI: Soft, non-tender, with normal bowel sounds. No distension or tympany. No guarding or rebound. No evidence of tenderness throughout. Back: No spinal tenderness. No costovertebral tenderness. Full range of motion. Skin: Warm, dry with normal turgor. Normal color with no rashes, no lesions, and no evidence of cellulitis. MS/ Extremity: Pulses equal, no cyanosis. Neurovascular intact. Full, normal range of motion. Neuro: Awake and alert, GCS 15, oriented to person, place, time, and situation. Cranial nerves II-XII grossly intact. Motor strength 5/5 in all extremities. Sensory grossly intact. Cerebellar exam normal 10:52 Cardiovascular: Rate: tachycardic, actual rate is 250 bpm, Rhythm: irregular, Pulses: Pulses are 1+ in right radial artery and left radial artery. Edema: is not appreciated. Vital Signs: 08:35 BP 135 / 80; Pulse 255; Resp 20; Temp 99.5; Pulse Ox 97% on R/A; Weight 83.91 kg; Pain sg 0/10; 08:45 BP 87 / 63; Pulse 252; Resp 19; Pulse Ox 98% on 4 lpm NC; Pain 0/10; sg 08:52 BP 127 / 62; Pulse 121; Resp 19; Pulse Ox 97% on 4 lpm NC; Pain 0/10; sg 10:01 BP 107 / 65; Pulse 95 MON; Resp 17; Pulse Ox 98% on 2 lpm NC; Pain 0/10; sg 11:30 BP 107 / 66; Pulse 87 MON; Resp 18; Temp 99.2; Pulse Ox 98% on R/A; Pain 0/10; sg NIH Stroke Scale Scores: 09:10 NIHSS Score: 0 sg Case Coma Score: 11:30 Eye Response: spontaneous(4). Verbal Response: oriented(5). Motor Response: obeys sg commands(6). Total: 15. Procedures: 10:52 Cardioversion: (synchronized) for treatment of SVT, with 200 joules X 1. Post procedure jr8 rhythm is sinus rhythm, the patient tolerated the procedure well. Moderate sedation: Pre-procedure assessment: the patient has been NPO 4 hour(s) prior to arrival, ASA physical classification: III - organic disease with definite functional impairment, Airway assessment: able to hyperextend neck, able to maintain airway, can open mouth without difficulty, Mallampati classification of tongue size: II - faucial pillars and soft palate can be visualized, but uvula is masked by the base of the tongue, Monitoring during procedure: public health director, continuous pulse oximetry, nurse at bedside at all times, Medications employed: Fentanyl, 50 mcg(s), Versed, 2 mg(s), Post-procedure assessment: the patient is moderately sedated, Muro sedation score: 5 - sluggish response to a light glabellar tap, Respiratory status: even and unlabored, a reversal agent was not used. MDM: 08:54 Patient medically screened. jr8 09:24 ED course: Patient doing much better after cardioversion. BP normalized and is no jr8 longer having palpitations or dizziness. Will continue to monitor and hydrate . 10:52 Data reviewed: vital signs, nurses notes, lab test result(s), EKG, radiologic studies, 8 plain films. Data interpreted: Pulse oximetry: on room air is 98 %. Interpretation: normal. Counseling: I had a detailed discussion with the patient and/or guardian regarding: the historical points, exam findings, and any diagnostic results supporting the discharge/admit diagnosis, lab results, the need for further work-up and treatment in the hospital. Physician consultation: Jeri Tilley MD regarding admission, to the telemetry unit. consult, patient's condition, and will see patient. 11:03 ED course: After family arrived discussed case with them in presence of patient. Family carissa thankful and will await for admission . 11/10 08:55 Order name: Basic Metabolic Panel [facility] 11/10 08:55 Order name: CBC with Diff [facility] 11/10 08:55 Order name: LFT's [facility] 11/10 08:55 Order name: Magnesium [facility] 11/10 08:55 Order name: NT PRO-BNP [facility] 11/10 08:55 Order name: PT-INR [facility] 11/10 08:55 Order name: Troponin (emerg Dept Use Only) [facility] 11/10 09:17 Order name: CBC with Automated Diff; Complete Time: 10:04 EDMS 11/10 09:20 Order name: Protime (+INR); Complete Time: 09:24 EDMS 11/10 09:40 Order name: Basic Metabolic Panel; Complete Time: 09:44 EDMS 11/10 09:40 Order name: Liver (Hepatic) Function; Complete Time: 09:44 MS 11/10 09:40 Order name: Troponin (Emerg Dept Use Only); Complete Time: 09:44 EDMS 11/10 09:40 Order name: NT PRO-BNP; Complete Time: 09:44 MS 11/10 09:40 Order name: Magnesium; Complete Time: 09:44 MS 11/10 08:55 Order name: XRAY Chest (1 view) 11/10 08:55 Order name: EKG; Complete Time: 08:56 11/10 08:55 Order name: Cardiac monitoring; Complete Time: 09:15 11/10 08:55 Order name: EKG - Nurse/Tech; Complete Time: 09:15 11/10 08:55 Order name: IV Saline Lock; Complete Time: 09:15 11/10 08:55 Order name: Labs collected and sent; Complete Time: 09:11/10 08:55 Order name: O2 Per Protocol; Complete Time: 09:11/10 08:55 Order name: O2 Sat Monitoring; Complete Time: :11/10 09:26 Order name: RAD; Complete Time: 09:44 EDMS 11/10 10:00 Order name: CBC Smear Scan; Complete Time: 10:04 EDMS Administered Medications: 08:40 Drug: Adenocard 12 mg Route: IVP; Site: right antecubital; sg 08:42 Drug: NS 0.9% 1000 ml Route: IV; Rate: 1000 ml; Site: right antecubital; sg 08:43 Drug: Adenocard 12 mg Route: IVP; Site: right antecubital; sg 08:45 Drug: fentaNYL (PF) 50 mcg Route: IVP; Site: right antecubital; sg 08:49 Drug: Versed 2 mg Route: IVP; Site: right antecubital; sg 08:50 Drug: NS 0.9% 1000 ml Route: IV; Rate: 1000 ml; Site: left wrist; sg Disposition: 16:46 Co-signature as Attending Physician, Sylvia Roberto MD. ma2 Disposition: 11/10/18 10:06 Hospitalization ordered by Jeri Tilley for Observation. Preliminary diagnosis are Dehydration, Supraventricular tachycardia. - Bed requested for Telemetry/MedSurg (observation). - Status is Observation. sg - Condition is Stable. - Problem is new. - Symptoms have improved. UTI on Admission? No Critical care time excluding procedures: 10:52 Critical care time: Bedside Care: 20 minutes, Consultation: 5 minutes, Family jr8 Intervention: 10 minutes. Total time: 35 minutes NIH Stroke Scale - NIH Stroke Score Date: 11/10/2018 Time: 09:10 Total Score = 0 1a. Level of Consciousness (LOC) - 0(Alert) 1b. Level of Consciousness (LOC) (Year \T\ Age) - 0(Both) 1c. LOC Commands (Open \T\ Closes Eyes/Pedal Assembler) - 0(Both) 2. Best Gaze (Lateral Gaze Paresis) - 0(Normal) 3. Visual Field Loss - 0(No visual loss) 4. Facial Palsy - 0(Normal) 5a. Left Arm: Motor (10-second hold) - 0(No drift) 5b. Right Arm: Motor (10-second hold) - 0(No drift) 6a. Left Leg: Motor (5-second hold - always test supine) - 0(No drift) 6b. Right Leg: Motor (5-second hold - always test supine) - 0(No drift) 7. Limb Ataxia (finger/nose \T\ heel/jean-baptiste - test with eyes open) - 0(Absent) 8. Sensory Loss (pinprick arms/legs/face) - 0(Normal) 9. Best Language: Aphasia (description/naming/reading) - 0(No aphasia) 10. Dysarthria (speech clarity - read or repeat words) - 0(Normal) 11. Extinction and Inattention (visual/tactile/auditory/spatial/personal) - 0(No abnormality) Initials: Signatures: Dispatcher [employer] EDMS Keith Cuenca RN RN sg Navdeep Fontenot PA PA jr8 Sylvia Roberto MD MD ma2 Radha Barone Corrections: (The following items were deleted from the chart) 10:58 10:06 Hospitalization Ordered by Jeri Tilley MD for Observation. Preliminary eb diagnosis is Dehydration; Supraventricular tachycardia. Bed requested for Telemetry/MedSurg (observation). Status is Observation. Condition is Stable. Problem is new. Symptoms have improved. UTI on Admission? No. jr8 11:57 10:58 11/10/2018 10:06 Hospitalization Ordered by Jeri Tilley MD for sg Observation. Preliminary diagnosis is Dehydration; Supraventricular tachycardia. Bed requested for Telemetry/MedSurg (observation). Status is Observation. Condition is Stable. Problem is new. Symptoms have improved. UTI on Admission? No. eb
[2018-11-10] MEDS ORDERED: ACETAMINOPHEN 500 MG TAB PO PRN (10:31)
[2018-11-10] MEDS ORDERED: ONDANSETRON 4 MG/2 ML VIAL IV PRN (10:31)
--- NOTE | 2018-11-10 11:52 | EKG ---
Test Date: 2018-11-10 Test Time: 08:38:01 Digital X Ray Service Engineer: SWG MEASUREMENT RESULTS: Intervals: Rate: 244 CA: 96 QRSD: 176 QT: 172 QTc: 346 [place]: P: 53 CA: 96 QRS: 63 T: 0 INTERPRETIVE STATEMENTS: svt Right bundle branch block Abnormal ECG Compared to ECG 06/22/2018 15:26:41 Right bundle-branch block now present Sinus tachycardia no longer present Incomplete right bundle-branch block no longer present Electronically Signed On 11-10-18 11:51:42 ROOF ASSEMBLER by Thad Bird
--- NOTE | 2018-11-10 11:52 | EKG ---
Test Date: 2018-11-10 Test Time: 08:49:40 Mattress Filler: BEN MEASUREMENT RESULTS: Intervals: Rate: 119 HI: 114 QRSD: 116 QT: 324 QTc: 455 [place]: P: 70 HI: 114 QRS: 72 T: 65 INTERPRETIVE STATEMENTS: Sinus tachycardia with premature supraventricular complexes Incomplete right bundle branch block Borderline ECG Compared to ECG 11/10/2018 08:38:01 Atrial premature complex(es) now present Incomplete right bundle-branch block now present Right bundle-branch block no longer present Electronically Signed On 11-10-18 11:51:13 GAS SUBSTATION OPERATOR by Thad Bird
[2018-11-10] MEDS ORDERED: ALBUTEROL 2.5 MG/3 ML NEB SOL IH PRN (12:22)
[2018-11-10] MEDS: NA CHLORIDE 0.9% 1,000 ML IV SCH ×2 (12:47→20:15)
[2018-11-10] MEDS: METOPROLOL TAR 25 MG TAB PO SCH ×2 (13:08→17:28)
[2018-11-10 14:27] LABS: Urine Appearance CLEAR; Urine Bilirubin NEGATIVE (NEG); Urine Blood NEGATIVE (NEG); Urine Color DK YELLOW; Urine Glucose NEGATIVE (NEG); Urine Protein 1+ (NEG); Urine Specific Gravity 1.015 (1.005-1.030); Urine pH 5.5 (5.0-7.0)
[2018-11-10 14:47] LABS: Urine Microscopic Reflex ORDER UMIC
[2018-11-10 15:16] LABS: Urine Bacteria 20-50 /HPF (<20); Urine Culture Reflex Order REFLEXED; Urine Mucus 10 /HPF (NONE SEEN); Urine RBC <5 /HPF (NONE SEEN)
[2018-11-10] MEDS ORDERED: ENOXAPARIN 40 MG/0.4 ML SQ SCH (17:00)
[2018-11-10] MEDS ORDERED: POTASSIUM 25 MEQ EFFERV TAB PO ONE (18:00)
[2018-11-10] MEDS ORDERED: DIGOXIN 0.25 MG/ML AMP IV ONE (20:57)
[2018-11-10] MEDS ORDERED: MAGNESIUM SULFATE 1 gm IVPB 1 GM/100 ML BAG IV ONE (21:00)
[2018-11-10] MEDS: HOME MED 1 EA UNK (Budesonide/Formoterol Fumarate [Symbicort 160-4.5 Mcg Inhaler] 2 PUFF) IH SCH (21:00)
--- NOTE | 2018-11-10 23:18 | HP ---
Date of Admission: 11/10/2018 Code Status: Full. Chief Complaint: Palpitations, decreased appetite, generalized malaise. History Of Present Illness: The patient is a 63-year-old female with past medical history of chronic obstructive pulmonary disease, no history of heart disease or arrhythmias, gastroesophageal reflux d isease, and recently diagnosed follicular lymphoma stage IV, non-Hodgkin's, undergoing treatment with Dr. Santiago, currently in remission, who is on maintenance chemotherapy monthly; however, has not had h er chemo dose scheduled for yesterday. The patient states that she has been having generalized weakn ess, decreased appetite, not feeling well, dizzy, and felt her heart racing. The patient is not able to tolerate liquids. The patient does have some nausea, but no vomiting. No diarrhea. The patient reports some subjective fevers. The patient does report some cough with sputum production with gree [place]renton-yellow sputum color. The patient does report being sick with upper respiratory tract in fection a few weeks ago. The patient's symptoms are constant, moderate, progressively worsening. No alleviating factors. The patient came in to the hospital with heart rate of 250s, hypotensive, and blood pressure in the 90s systolic. She was given adenosine x2 and did not return to sinus rhythm. Therefore, was shocked after being given Versed, shocked with 200 joules. The patient's blood pressu re improved into the 100 systolic. Her heart rate also improved. The patient was then referred for admission. She did receive 2 L of IV normal saline bolus and feels better. When seen in the ER, she was awake, alert, oriented x3. Some mild distress. Past Medical History: 1.Chronic obstructive pulmonary disease. 2.Gastroesophageal reflux disease. 3.Follicular lymphoma, stage IV, currently and in remission, undergoing treatment with Dr. Santiago. Past Surgical History: 1.Tonsillectomy. 2. section. 3.Left wrist repair. 4.Biopsy for the lymphoma. Allergies: MORPHINE AND SULFA. Medications: List reviewed. Social History: The patient is , has 1 child. Works at a local [employer]. Family History: Father had heart disease. Mother had heart disease, hypertension, and diabetes. Br other had cancer. Sister also had cancer. Habits: The patient denies smoking. Does drink alcohol occasionally. No illicit drug use. Lives a t home, independent in her activities of daily living. Review of Systems: An 11-point system reviewed, except as per HPI. Physical Examination: Vital Signs: Temperature 99.2. Heart rate initially 252, after cardioversion 90s. Blood pressure 8 7/63, respirations 19, O2 of 98% on room air. Blood pressure improved to 127/62 after cardioversion. General: Awake, alert, oriented x3. Some mild distress. Ill-appearing female, elderly. CV: S1, S2. Regular rate and rhythm. Peripheral pulses present. HEENT: Normocephalic, atraumatic. PERRLA. EOMI. Dry mucous membranes. Oropharynx is clear. Norm al dentition. Conjunctivae are anicteric. Neck: Supple. No JVD. Trachea midline. Respiratory: Diminished breath sounds. Some rhonchi heard. No wheezing or stridor. The patient is slightly tachypneic. No use of accessory muscles. Gastrointestinal: Abdomen is soft, nontender, nondistended. Positive bowel sounds. No guarding or rigidity. Extremities: No clubbing, cyanosis, or edema. No calf tenderness. Neurologic: Cranial nerves 2 through 12 intact grossly. No focal neurological deficit. Speech is n ormal. Strength is symmetric, bilateral upper and lower extremities. Psychiatric: Mood is anxious. Affect is full. Insight and judgment are good. Laboratory Data: Sodium 139, potassium 3.7, chloride 106, CO2 of 25, BUN 13, creatinine is 0.86, glu cose 114, calcium 8.4, and magnesium 1.8. AST 75, ALT 49, and alkaline phosphatase 188. Troponin 0. 03. BNP 893. Albumin 2.9. INR 1.46. WBC 6.6, H and H 11.2 and 33.5, platelets 227, and neutrophil s 82%. Chest x-ray, personally reviewed, shows no acute intrathoracic process suspected. Prominent chronic obstructive pulmonary disease. EKG shows sinus tachycardia with premature supraventricular c omplexes, incomplete right bundle-branch block. Borderline EKG. Assessment And Plan: A 63-year-old female with; 1.Supraventricular tachycardia, status post adenosine cardioversion, now back in sinus rhythm. We w ill start on beta-blockers. Obtain echocardiogram. Cardiology consultation. Check TSH. Magnesium level is normal. 2.Chronic obstructive pulmonary disease, with acute bronchitis. The patient does have some cough wi th sputum production. Chest x-ray did not show any acute infiltrate. Influenza screen was negative. 3.Gastroesophageal reflux disease. Continue PPI. 4.Incomplete right bundle-branch block. 5.Normocytic, normochromic anemia. 6.Elevated AST, unclear etiology. Plan: We will admit the patient to Med-Surg, place with observation. Follow up on echocardiogram an d TSH levels. Cardiology consultation. LUCIA Voice ID: [id number]
[2018-11-10] MEDS: guaiFENesin 100 MG/5 ML UCUP PO PRN (23:44)
[2018-11-11] MEDS: guaiFENesin 100 MG/5 ML UCUP PO PRN ×3 (04:50→16:13)
[2018-11-11] MEDS: NA CHLORIDE 0.9% 1,000 ML IV SCH ×2 (04:51→16:14)
[2018-11-11] MEDS: METOPROLOL TAR 25 MG TAB PO SCH (04:58)
[2018-11-11 05:46] LABS: ALT/SGPT 51 U/L (12-78); AST/SGOT 67 U/L (15-37); Albumin 2.6 g/dL (3.4-5.0); Alkaline Phosphatase 147 U/L (45-117); BUN Blood Urea Nitrogen 12 mg/dL (7-18); Bicarbonate 25 mmol/L (21-32); Bilirubin Total 0.4 mg/dL (0.2-1.0); Glucose Level 84 mg/dL (74-106); Magnesium 2.2 mg/dL (1.8-2.4); Phosphorus 2.5 mg/dL (2.5-4.9); Potassium 4.1 mmol/L (3.5-5.1); Sodium Level 142 mmol/L (136-145)
[2018-11-11 06:30] LABS: Absolute Lymphocytes (CBC) 0.4 K/uL (0.7-4.9); Absolute Monocytes 0.5 K/uL (0.1-1.3); Absolute Neutrophil 3.5 K/uL (1.8-8.0); Basophils % 0.3 % (0-1.3); Eosinophils % 1.1 % (0-4.4); Hematocrit 31.7 % (36.0-45.0); Lymphocytes % 7.9 % (15.3-44.8); Monocytes % 10.5 % (3.3-12.3); RBC Red Blood Cell Count 3.41 M/uL (3.86-4.86)
[2018-11-11 07:55] LABS: Platelet Estimate ADEQ; Toxic Granulation PRESENT
[2018-11-11 08:18] LABS: Blood Morphology Comment NOT SEEN (NOT SEEN)
[2018-11-11] MEDS: VALACYCLOVIR 500 MG TAB PO SCH (08:46)
[2018-11-11] MEDS: HOME MED 1 EA UNK (Budesonide/Formoterol Fumarate [Symbicort 160-4.5 Mcg Inhaler] 2 PUFF) IH SCH ×2 (09:00→21:00)
[2018-11-11] MEDS: LEVALBUTEROL 0.63 MG/3 ML NEB NEB PRN ×2 (09:13→19:50)
[2018-11-11] MEDS ORDERED: CEFTRIAXONE 1 GM/NS 50 ML 1 GM/50 ML BAG IV SCH (09:59)
[2018-11-11] MEDS: ENOXAPARIN 80 MG/0.8 ML SQ SCH ×2 (10:22→21:15)
[2018-11-11] MEDS: CEFTRIAXONE/SWI 1gm 1 GM/10 ML SYR IV SCH (10:24)
[2018-11-11] MEDS ORDERED: METOPROLOL TAR 25 MG TAB PO ONE (10:30)
--- NOTE | 2018-11-11 11:36 | EKG ---
Test Date: 2018-11-11 Test Time: 09:59:21 Glass Mechanic: BRENNON MEASUREMENT RESULTS: Intervals: Rate: 176 OR: QRSD: 114 QT: 274 QTc: 468 [place]: P: OR: QRS: 56 T: 41 INTERPRETIVE STATEMENTS: Atrial fibrillation with rapid ventricular response Incomplete right bundle branch block ST & T wave abnormality, consider anterior ischemia or digitalis effect Abnormal ECG Compared to ECG 11/11/2018 00:33:11 Incomplete right bundle-branch block now present ST (T wave) deviation now present Possible ischemia now present Sinus rhythm no longer present Ventricular premature complex(es) no longer present Right bundle-branch block no longer present Electronically Signed On 11-11-18 11:35:41 AUDIOLOGY DOCTOR by Thad Bird
--- NOTE | 2018-11-11 11:37 | EKG ---
Test Date: 2018-11-10 Test Time: 19:40:16 Charge Coordinator: RT Gerber MEASUREMENT RESULTS: Intervals: Rate: 160 [place]: QRSD: 114 QT: 286 QTc: 466 [place]: P: [place]: QRS: 55 T: 66 INTERPRETIVE STATEMENTS: Atrial flutter with variable AV block Incomplete right bundle branch block Abnormal ECG Compared to ECG 11/10/2018 08:49:40 Sinus tachycardia no longer present Atrial premature complex(es) no longer present Electronically Signed On 11-11-18 11:36:08 CLOUD SOFTWARE ENGINEER by Thad Bird
--- NOTE | 2018-11-11 11:37 | EKG ---
Test Date: 2018-11-11 Test Time: 00:33:11 Chemical Dependency Therapist: RT MEASUREMENT RESULTS: Intervals: Rate: 95 MA: 142 QRSD: 122 QT: 364 QTc: 457 [place]: P: 75 MA: 142 QRS: 63 T: 67 INTERPRETIVE STATEMENTS: Sinus rhythm with occasional premature ventricular complexes Right bundle branch block Abnormal ECG Compared to ECG 11/10/2018 19:40:16 Ventricular premature complex(es) now present Right bundle-branch block now present Atrial flutter no longer present Incomplete right bundle-branch block no longer present Electronically Signed On 11-11-18 11:35:53 SEALER DRY CELL by Thad Bird
[2018-11-11] MEDS: SOTALOL HCL 80 MG TAB PO SCH ×2 (11:56→21:09)
[2018-11-11] MEDS: ALPRAZOLAM 0.25 MG TABLET PO PRN ×2 (12:55→21:02)
--- NOTE | 2018-11-11 14:20 | PN ---
Date of Progress Note: 11/11/2018 Subjective: Patient seen and examined. Chart reviewed and case discussed with RN. I spoke with the patient's daughter at length regarding treatment plan and answered all questions. Case discussed with Dr. Bird. The patient is still in atrial fibrillation/flutter. Medications: List reviewed. Physical Examination: Vital Signs: Temperature 99, heart rate 92, blood pressure 125/59, respirations 20, O2 98% on room air. General: Awake, alert, oriented, no acute distress. Elderly female. CV: S1, S2. Irregularly irregular. Peripheral pulses present. Respiratory: Moving air well bilaterally. No wheezing. Gastrointestinal: Abdomen is soft, nontender, nondistended. Positive bowel sounds. Extremities: No clubbing, cyanosis, or edema. Neurologic: Nonfocal. Laboratory Data: Sodium 142, potassium 4.1, chloride 110, CO2 25, BUN 12, creatinine 0.61, glucose 84, calcium 8.5, AST 67, ALT 51, alkaline phosphatase 147, albumin 2.6. WBC 4.4, H and H 10.7 and 31.7, platelets 200, neutrophils 80 %. EKG, atrial fibrillation with RVR, rate of 176, incomplete right bundle- branch block. Assessment And Plan: A 63-year-old female with. 1. SVT, status post cardioversion, now in atrial fibrillation/flutter. We will start patient on anticoagulation with Lovenox 1 mg/kg q.12 hours. Cardiology recommends Betapace. We will start on 80 mg b.i.d. Discontinue metoprolol. We will observe patient for minimum of 3 doses. Continue telemetry. TSH level was low. 2. Chronic obstructive pulmonary disease with acute bronchitis. Continue with breathing treatments, improving. 3. Gastroesophageal reflux disease without esophagitis. Continue PPI. 4. Normocytic normochromic anemia. Monitor H and H, transfuse as needed. 5. Elevated AST, trending down. 6. UTI Plan: Start on Betapace. We will monitor. Change Lovenox to 1 mg/kg. SA/MODL Voice ID: [id number] Report ID: [id number] MTDD
[2018-11-11] MEDS ORDERED: METOPROLOL TAR 25 MG TAB PO SCH (18:00)
[2018-11-11] MEDS ORDERED: HYDRALAZINE HCL 20 MG/ML VIAL IV ONE (18:09)
[2018-11-12] MEDS ORDERED: MELATONIN 3 MG TABLET PO ONE (01:48)
[2018-11-12] MEDS: NA CHLORIDE 0.9% 1,000 ML IV SCH ×2 (04:10→13:00)
[2018-11-12 05:40] LABS: Absolute Lymphocytes (CBC) 0.2 K/uL (0.7-4.9); Absolute Monocytes 0.3 K/uL (0.1-1.3); Absolute Neutrophil 3.3 K/uL (1.8-8.0); Basophils % 0.3 % (0-1.3); Eosinophils % 2.4 % (0-4.4); Hematocrit 29.6 % (36.0-45.0); Lymphocytes % 4.7 % (15.3-44.8); MPV 7.8 fL (7.6-11.3); Monocytes % 7.8 % (3.3-12.3); RBC Red Blood Cell Count 3.16 M/uL (3.86-4.86)
[2018-11-12] MEDS: SOTALOL HCL 80 MG TAB PO SCH (05:53)
[2018-11-12 06:00] LABS: ALT/SGPT 42 U/L (12-78); AST/SGOT 50 U/L (15-37); Albumin 2.4 g/dL (3.4-5.0); Alkaline Phosphatase 132 U/L (45-117); BUN Blood Urea Nitrogen 9 mg/dL (7-18); Bicarbonate 26 mmol/L (21-32); Bilirubin Total 0.4 mg/dL (0.2-1.0); Glucose Level 84 mg/dL (74-106); Magnesium 1.7 mg/dL (1.8-2.4); Potassium 3.7 mmol/L (3.5-5.1); Protein, Total 5.5 g/dL (6.4-8.2); Sodium Level 141 mmol/L (136-145)
[2018-11-12] MEDS: LEVALBUTEROL 0.63 MG/3 ML NEB NEB PRN (06:13)
--- NOTE | 2018-11-12 07:02 | PN ---
The patient was seen on 11/10/2018 initially for SVT. She was placed on beta-blockers. Workup is ne gative except for COPD. An echocardiogram that was done yesterday was normal without any wall motion abnormalities or effusion. She was going to be discharged home. However, she went into atrial fibr illation, atrial flutter with rapid ventricular response. I recommend that we put her on Betapace 80 mg 1 p.o. b.i.d. Continue Lovenox. I think eventually she is going to have to be anticoagulated. We will see what her Betapace does, but if she fails to cardiovert after 3 dosages, I will consider a cardioversion. She has already received 1 dose of digoxin. If her rate continued to be fast, we ca n give her another dose of digoxin and maybe even some IV Lopressor on an as-needed basis if her hear t rate goes over 120. I will continue to follow her. ROGER/MIGUEL A Voice ID: [id number] Report ID: [id number]
--- NOTE | 2018-11-12 07:06 | EKG ---
Test Date: 2018-11-11 Test Time: 15:18:19 Band Reamer Machine Operator: BRENNON MEASUREMENT RESULTS: Intervals: Rate: 143 [place]: QRSD: 118 QT: 328 QTc: 506 [place]: P: [place]: QRS: 51 T: 43 INTERPRETIVE STATEMENTS: Atrial fibrillation with rapid ventricular response Incomplete right bundle branch block Nonspecific ST and T wave abnormality, probably digitalis effect Abnormal ECG Compared to ECG 11/11/2018 09:59:21 Possible ischemia no longer present ST (T wave) deviation still present Electronically Signed On 11-12-18 07:04:51 MARINE RADIO INSTALLER AND SERVICER by Thad Bird
[2018-11-12] MEDS: HOME MED 1 EA UNK (Budesonide/Formoterol Fumarate [Symbicort 160-4.5 Mcg Inhaler] 2 PUFF) IH SCH (08:24)
[2018-11-12] MEDS: CEFTRIAXONE/SWI 1gm 1 GM/10 ML SYR IV SCH (08:25)
[2018-11-12] MEDS: ENOXAPARIN 80 MG/0.8 ML SQ SCH (08:26)
[2018-11-12] MEDS: guaiFENesin 100 MG/5 ML UCUP PO PRN (08:28)
[2018-11-12] MEDS: VALACYCLOVIR 500 MG TAB PO SCH (08:29)
[2018-11-12] MEDS ORDERED: POTASSIUM 25 MEQ EFFERV TAB PO ONE (09:00)
[2018-11-12] MEDS ORDERED: MAGNESIUM SULFATE 1 gm IVPB 1 GM/100 ML BAG IV ONE (09:00)
--- NOTE | 2018-11-13 03:11 | DS ---
Date of Discharge: 11/12/2018 Consultants: Dr. Bird with Cardiology. Procedures: None. Admitting Diagnoses: 1.Supraventricular tachycardia status post cardioversion. 2.Chronic obstructive pulmonary disease, acute bronchitis. 3.Gastroesophageal reflux disease without esophagitis. 4.Incomplete right bundle-branch block. 5.Normocytic normochromic anemia. 6.Elevated AST. Discharge Diagnoses: 1.Supraventricular tachycardia status post cardioversion. 2.Atrial fibrillation, flutter, now back in sinus rhythm with Betapace, on Eliquis. 3.Chronic obstructive pulmonary disease with acute bronchitis. 4.Gastroesophageal reflux disease without esophagitis. 5.Normocytic normochromic anemia. 6.Elevated AST, trending down. 7.Hypomagnesemia, replaced. 8.Leukopenia. Hospital Course: The patient is a 63-year-old female with past medical history of COPD, comes in wit h palpitations. The patient was found to be in SVT. She was given adenosine x2 without improvement. The patient was then cardioverted. She was initially hypotensive. Her blood pressure stabilized a fter cardioversion. The patient was started on beta-blockers. She received IV fluids to improve her blood pressure. She was admitted for further cardiac workup. Echocardiogram was done and Cardiolog y was consulted. The patient had normal ejection fraction. Overall, patient did well. Her symptoms improved. She was started on Betapace for new onset atrial fibrillation, flutter. Her rate was any where in the 170s to 90s. She converted back to sinus rhythm with Betapace. She was started on anti coagulation with Lovenox 1 mg/kg dose. She was counseled regarding anticoagulants. The patient was then able to tolerate Betapace, 3 doses were given in the hospital and she was monitored. The patien t was then cleared for discharge from Cardiology standpoint. The patient was then discharged to home in a stable condition. Activity: As tolerated. Medications: As per medication reconciliation list. Followup: Follow up with primary care physician 0-3 days. Follow up with plumber, Dr. Bird in 2 weeks. Return to ER for worsening condition. Diet: Heart healthy. Physical Examination: General: Awake, alert, oriented x3. No acute distress, elderly female. CV: S1, S2. Regular rate and rhythm. Peripheral pulses present. Respiratory: Moving air well bilaterally. Gastrointestinal: Abdomen is soft, nontender, nondistended. Positive bowel sounds. No guarding or rigidity. Extremities: No clubbing, cyanosis or edema. Neurologic: Nonfocal. Total time spent discharging the patient was 37 minutes. /MIGUEL A Voice ID: [id number] Report ID: [id number]
--- NOTE | 2018-11-13 08:32 | ECHO ---
HEIGHT: 5 ft 8 in WEIGHT: 151 lb 0 oz DATE OF STUDY: 11/10/[address]: Jeri Tilley MD 2-DIMENSIONAL: YES M.MODE: YES DOPPLER: YES COLOR FLOW: YES TDS: YES PORTABLE: NO DEFINITY: NO BUBBLE STUDY: NO DIAGNOSIS: ARRYTHMIA CARDIAC HISTORY: CATHERIZATION: SURGERY: PROSTHETIC VALVE: PACEMAKER: MEASUREMENTS (cm) DIASTOLIC (NORMALS) SYSTOLIC (NORMALS) IVSd 1.1 (0.6-1.2) LA Diam 3.7 (1.9-4.0) LVEF 53% LVIDd 4.2 (3.5-5.7) LVIDs 3.1 (2.0-3.5) %FS 27% LVPWd 1.2 (0.6-1.2) Ao Diam 3.1 (2.0-3.7) 2 DIMENSIONAL ASSESSMENT: RIGHT ATRIUM: NORMAL LEFT ATRIUM: NORMAL RIGHT VENTRICLE: NORMAL LEFT VENTRICLE: NORMAL TRICUSPID VALVE: NORMAL MITRAL VALVE: NORMAL PULMONIC VALVE: NORMAL AORTIC VALVE: NORMAL PERICARDIAL EFFUSION: NONE AORTIC ROOT: NORMAL LEFT VENTRICULAR WALL MOTION: NORMAL DOPPLER/COLOR FLOW: MILD TRICUSPID REGURGITATION. COMMENTS: SUPRAVENTRICULAR TACHYCARDIA NOTED. NORMAL LEFT VENTRICULAR SIZE AND FUNCTION. NO EFFUSION. MILD TRICUSPID REGURGITATION. NORMAL RIGHT VENTRICULAR SYSTOLIC PRESSURE. TECHNOLOGIST: Remy SADLER
--- NOTE | 2018-11-13 15:59 | CON ---
Date of Consultation: 11/10/2018 She was admitted to Dr. Tilley's service on 11/10/2018. Reason For Admission: Supraventricular tachycardia. History: The patient is a 63-year-old woman without any past cardiac history as far as we know. She has a history of COPD for which she takes Symbicort. She has just finished chemotherapy treatments for non-Hodgkin lymphoma by Dr. Santiago. She has received 1 dose of maintenance chemotherapy afterward recently. Came in with palpitations and was found to be in SVT and had a chemical cardioversion in [facility] emergency room back to sinus rhythm. With her SVT, she had dizziness, weakness, confusion, palpit ations, but no syncope. Denies PND, orthopnea, or pedal edema. Past Medical History: As stated earlier. Allergies: SHE IS ALLERGIC TO MORPHINE AND SULFA. Review of Systems: Negative. Social History: Negative. Family History: Negative. Physical Examination: General: She was in a sinus rhythm. Vital Signs: Stable. She was afebrile HEENT: Negative. Neck: Supple without any bruit, lymphadenopathy, JVD, or thyromegaly. Chest: Clear to auscultation and percussion. Cardiac: Revealed a regular rhythm and rate without any murmurs, gallops, or rubs. Abdomen: Benign. Extremities: Revealed no clubbing, cyanosis, or edema. Diagnostic Data: Her BNP was 893, otherwise everything else was normal except for the chest x-ray CO PD. An echocardiogram in February of 2018 was normal. Impression And Plan: Supraventricular tachycardia while undergoing chemotherapy for non-Hodgkin lymp [place]. I will get another echocardiogram to make sure she does not have a cardiomyopathy. Definitely put her on beta-alena. She should also be on aspirin. I would observe her overnight, and if she does not have anymore episode, we can probably send her home. I did discuss the possibility of an ab lation considering how fast her supraventricular tachycardia was with her. She will consider that la ter. We will re-discuss that case after she sees me in the office as an outpatient. ROGER/MIGUEL A Voice ID: [id number] Report ID: [id number]
== END 2018-11-12 15:03 | disposition home or self-care (01) | DRG 309 ==
LOC: ER 08:37 → ERHOLD 10:29 → 2ND 11:54 → OBSVTOIN 11-11 11:13
PROVIDERS: ADMIT Family Medicine; ATTEND Family Medicine
PROC: 5A2204Z Restoration of Cardiac Rhythm, Single (ICD-10-PCS; principal; 2018-11-11)
DX: I47.1 Supraventricular tachycardia (principal); C82.80 Other types of follicular lymphoma, unspecified site; N39.0 Urinary tract infection, site not specified; J44.9 Chronic obstructive pulmonary disease, unspecified; I48.92 Unspecified atrial flutter; K21.9 Gastro-esophageal reflux disease without esophagitis; J20.9 Acute bronchitis, unspecified; I45.10 Unspecified right bundle-branch block; D64.9 Anemia, unspecified; E86.0 Dehydration; I48.91 Unspecified atrial fibrillation; E83.42 Hypomagnesemia; D72.819 Decreased white blood cell count, unspecified
CPT/HCPCS: 36415; 71045; 80048; 80053; 80076; 81003; 81015; 83735; 83880; 84100; 84443; 84484; 85025; 85610; 87086; 87088; 92960; 93005; 93306; 94640; 94760; 96374; 96375; 99291; G0378; J0153; J0696; J1160; J1650; J2250; J2405; J3010; J3475; J7030

== ENCOUNTER 2018-12-04 10:32 | Inpatient (IN) | payer OTHER ==
[2018-12-04] MEDS ORDERED: Levofloxacin500mg IV 500 MG/100 ML BAG IV ONE (11:04)
[2018-12-04] MEDS ORDERED: NA CHLORIDE 0.9% 1,000 ML ONE (11:04)
[2018-12-04] MEDS ORDERED: FAMOTIDINE 20 MG/2 ML VIAL IV ONE (11:04)
[2018-12-04] MEDS ORDERED: IPRATROPIUM BROM 0.5MG/2.5ML ONE (11:04)
[2018-12-04] MEDS ORDERED: METHYLPREDNISOLONE 125 MG INJ ONE (11:04)
[2018-12-04] MEDS ORDERED: ALBUTEROL 2.5 MG/3 ML NEB SOL ONE (11:04)
[2018-12-04 11:20] LABS: Absolute Lymphocytes (CBC) 0.4 K/uL (0.7-4.9); Absolute Monocytes 0.5 K/uL (0.1-1.3); Absolute Neutrophil 6.4 K/uL (1.8-8.0); Basophils % 0.3 % (0-1.3); Hematocrit 33.6 % (36.0-45.0); Lymphocytes % 5.6 % (15.3-44.8); MPV 7.6 fL (7.6-11.3); Monocytes % 6.3 % (3.3-12.3); RBC Red Blood Cell Count 3.73 M/uL (3.86-4.86)
[2018-12-04 11:27] LABS: Protime INR 1.78
--- NOTE | 2018-12-04 11:37 | RAD REPORT ---
EXAM DESCRIPTION: RAD - Chest Single View - 12/04/2018 11:27 am CLINICAL HISTORY: COPD;Cough Chest pain. COMPARISON: Chest Single View dated 11/10/2018; Chest Pa And Lat (2 Views) dated 02/16/2018; Chest Sing le View dated 01/20/2018; CHEST PA AND LAT 2 VIEW dated 11/24/2010; Chest Abdomen Pelvis W Cont dated 11/17 FINDINGS: Portable technique limits examination quality. Poorly defined right lower lung opacities are present which is suspicious for pneumonia or atelectasi s. The left lung is grossly clear. The heart is mildly enlarged in size. No displaced fractures.
[2018-12-04 11:45] LABS: ALT/SGPT 46 U/L (12-78); AST/SGOT 58 U/L (15-37); Albumin 2.7 g/dL (3.4-5.0); Alkaline Phosphatase 106 U/L (45-117); BUN Blood Urea Nitrogen 11 mg/dL (7-18); Bicarbonate 29 mmol/L (21-32); Bilirubin Direct 0.2 mg/dL (0-0.2); Bilirubin Total 0.5 mg/dL (0.2-1.0); Glucose Level 91 mg/dL (74-106); Magnesium 1.9 mg/dL (1.8-2.4); NT PRO-BNP 437 pg/mL (<125); Potassium 4.5 mmol/L (3.5-5.1); Protein, Total 6.9 g/dL (6.4-8.2); Sodium Level 135 mmol/L (136-145); Troponin (Emerg Dept Use Only) < 0.02 ng/mL (0.0-0.045)
[2018-12-04 11:46] LABS: Blood Morphology Comment NOT SEEN (NOT SEEN); Platelet Estimate ADEQ; Urine White Blood Cell Casts OK
[2018-12-04] MEDS ORDERED: CEFEPIME/SWI 1gm 10 ML IV ONE (12:00)
--- NOTE | 2018-12-04 12:01 | ER ---
Nurse's Notes [facility] Name: Mary Estrada Age: 63 yrs Sex: Female : 1955 Arrival Date: 12/04/2018 Time: 10:34 Bed 2 Private MD: Diagnosis: Dyspnea;Chronic obstructive pulmonary disease with (acute) exacerbation;Atelectasis;Pneumonia due to other specified bacteria Presentation: 12/04 10:28 Presenting complaint: EMS states: called out for increasing SOB since . Pt had sv a CT done , Dr Santiago called her Tuesday and said that she has a "partially collapsed lung". On EMS arrival 89% RA BP 125/75 HR-86 95% O2 \\T\\ 2L per NC. Pt reports sputum is green/yellow. Transition of care: patient was not received from another setting of care. Onset of symptoms was December 04, 2018. Risk Assessment: Do you want to hurt yourself or someone else? Patient reports no desire to harm self or others. Initial Sepsis Screen: Does the patient meet any 2 criteria? RR > 20 per min. Yes Does the patient have a suspected source of infection? Yes: Productive cough/pneumonia. Care prior to arrival: IV initiated. 22 GA, in the left antecubital area, Oxygen administered. via nasal cannula. 10:28 Method Of Arrival: EMS: [facility] sv 10:28 Acuity: SIMEON 3 sv Triage Assessment: 10:30 General: Appears in no apparent distress. uncomfortable, well developed, Behavior is sv calm, cooperative, appropriate for age. Pain: Denies pain. Neuro: Level of Consciousness is awake, alert, obeys commands, Oriented to person, place, time, situation, Moves all extremities. Full function. Respiratory: Reports shortness of breath at rest on exertion cough that is productive, persistent Airway is patent Respiratory effort is even, unlabored, Respiratory pattern is symmetrical, tachypnea Breath sounds with wheezes bilaterally. Onset: The symptoms/episode began/occurred 3 days ago, the patient has mild shortness of breath. Derm: Skin is normal. Historical: - Allergies: 11:19 Morphine; sv 11:19 Sulfa (Sulfonamide Antibiotics); sv - Home Meds: 11:19 Xarelto 20 mg oral tab [Active]; Sorine 80 mg oral tab [Active]; valacyclovir 500 mg sv Oral tab [Active]; - PMHx: 11:19 COPD; Non-Hodgkin's lymphoma; sv - PSHx: 11:19 Tonsillectomy; sv - Immunization history:: Adult Immunizations up to date. - Ebola Screening: : No symptoms or risks identified at this time. - Social history:: Smoking status: . Screenin:21 Abuse screen: Denies threats or abuse. Denies injuries from another. Nutritional sv screening: No deficits noted. Tuberculosis screening: No symptoms or risk factors identified. Fall Risk None identified. Assessment: 11:26 Reassessment: Patient appears in no apparent distress at this time. Patient and/or sv family updated on plan of care and expected duration. Pain level reassessed. Patient is alert, oriented x 3, equal unlabored respirations, skin warm/dry/pink. Patient states feeling better. Patient states symptoms have improved. Respiratory: Airway is patent Respiratory effort is even, unlabored, Respiratory pattern is regular, symmetrical, Breath sounds are clear in left posterior lower lobe, right posterior middle lobe and right posterior lower lobe Breath sounds with wheezes in left posterior upper lobe and right posterior upper lobe. 12:10 Reassessment: Dr Amezquita at bedside. sv 12:20 Reassessment: Patient appears in no apparent distress at this time. Patient and/or sv family updated on plan of care and expected duration. Pain level reassessed. Patient is alert, oriented x 3, equal unlabored respirations, skin warm/dry/pink. Patient denies pain at this time. Patient states feeling better. Patient states symptoms have improved. 13:50 Reassessment: Patient appears in no apparent distress at this time. Patient and/or sv family updated on plan of care and expected duration. Pain level reassessed. Patient is alert, oriented x 3, equal unlabored respirations, skin warm/dry/pink. Lunch tray given to pt. Patient denies pain at this time. Patient states feeling better. Patient states symptoms have improved. 15:17 Cardiovascular: Rhythm is regular. tw2 Vital Signs: 10:30 BP 116 / 43; Pulse 87; Resp 24; Temp 98.9(O); Pulse Ox 92% on 2 lpm NC; Pain 0/10; sv 10:50 Weight 66.68 kg; Height 5 ft. 8 in. (172.72 cm); sv 11:15 BP 109 / 52; Pulse 82; Resp 23; Pulse Ox 100% on Nebulizer Mask; sv 11:27 Resp 20; sv 12:10 BP 114 / 54; Pulse 86; Resp 22; Pulse Ox 95% on 2 lpm NC; sv 13:30 BP 101 / 54; Pulse 82; Resp 17; Pulse Ox 95% on 2 lpm NC; tw2 14:15 BP 102 / 59; Pulse 78; Resp 17; Pulse Ox 95% on 2 lpm NC; tw2 15:16 BP 113 / 58; Pulse 82; Resp 17; Pulse Ox 95% on 2 lpm NC; tw2 10:50 Body Mass Index 22.35 (66.68 kg, 172.72 cm) sv ED Course: 10:28 Maintain EMS IV. Dressing intact. Good blood return noted. Site clean \\T\\ dry. Gauge \\T\\ sv site: 22G L AC. Flushed left antecubital with 5 ml normal saline. 10:34 Patient arrived in ED. sv 10:35 Suresh Boucher MD is Attending Physician. fernando 10:35 Arm band placed on. sv 10:35 Patient has correct armband on for positive identification. Bed in low position. Call sv light in reach. Side rails up X2. pvc monitor on. Pulse ox on. NIBP on. Door closed. Warm blanket given. Head of bed elevated. 10:40 Initial lab(s) drawn, by me, sent to lab. First set of blood cultures drawn by me. sv Inserted saline lock: 20 gauge in right antecubital area, using aseptic technique. Blood collected. Flushed right antecubital with 5 ml normal saline. 10:47 EKG done, by office technology instructor. reviewed by Suresh Boucher MD. at1 10:55 Second set of blood cultures drawn by me. sv 11:17 Triage completed. sv 11:21 Glory Grayson, CURTIS is Primary Nurse. sv 11:25 X-ray completed. Portable x-ray completed in exam room. Patient tolerated procedure sw well. 11:32 XRAY Chest (1 view) In Process Unspecified. EDMS 11:59 Everette Amezquita DO is Hospitalizing Provider. fernando 12:20 Awaiting bed assignment. sv 15:12 Awaiting: attempted to call report at this time. tw2 15:17 No provider procedures requiring assistance completed. Patient admitted, IV remains in tw2 place. 15:17 Report given to CURTIS Munoz. tw2 Administered Medications: 10:56 Drug: NS 0.9% 1000 ml Route: IV; Rate: 75 ml/hr; Site: right antecubital; sv 15:18 Follow up: IV Status: Infusion continued upon admission tw2 10:56 Drug: Albuterol - atroVENT (3:1) (2.5 mg - 0.5 mg) 3 ml Route: Nebulizer; sv 11:30 Follow up: Response: No adverse reaction sv 10:56 Drug: SOLU-Medrol 2 mg/kg {Note: 125 mg IVP given per Dr Boucher.} Route: IVP; Site: sv right antecubital; 11:30 Follow up: Response: No adverse reaction sv 10:58 Drug: levofloxacin 500 mg Volume: 100 ml; Route: IVPB; Infused Over: 60 mins; Site: sv right antecubital; 12:09 Follow up: Response: No adverse reaction; IV Status: Completed infusion; IV Intake: sv 100ml 11:00 Drug: Pepcid 20 mg Route: IVP; Site: right antecubital; sv 11:30 Follow up: Response: No adverse reaction sv 12:04 Drug: Cefepime 1 grams {Note: given IVP per pharmacy.} Route: IVPB; Rate: 200 ml/hr; sv Infused Over: 30 mins; Site: right antecubital; 12:08 Follow up: Response: No adverse reaction; IV Status: Completed infusion; IV Intake: 10mlsv Intake: 12:08 IV: 10ml; Total: 10ml. sv 12:09 IV: 100ml; Total: 110ml. sv Outcome: 12:00 Decision to Hospitalize by Provider. fernando 15:17 Admitted to Med/surg accompanied by tech, via wheelchair, room 218, with oxygen, Report tw2 called to CURTIS Munoz 15:17 Condition: stable 15:17 Instructed on the need for admit. 15:22 Patient left the ED. tw2 15:28 Patient left the ED. sv Signatures: Dispatcher [employer] EDGlory Lowe RN RN sv Suresh Boucher MD MD cha Gonzales, Amanda, producer director EKG Tat1 Cathy Hidalgo Tara RN RN tw2 Corrections: (The following items were deleted from the chart) 11:13 10:56 SOLU-Medrol 2 mg/kg IVP in right antecubital sv sv
--- NOTE | 2018-12-04 12:01 | EDPHYS ---
Physician Documentation [facility] Name: Mary Estrada Age: 63 yrs Sex: Female : 1955 Arrival Date: 12/04/2018 Time: 10:34 Bed 2 Private MD: ED Physician Suresh Boucher HPI: 12/04 11:55 This 63 yrs old Female presents to ER via EMS with complaints of Shortness Of fernando Breath. 11:55 This 63 yrs old Female presents to ER via EMS with complaints of Shortness Of fernando Breath. 11:55 The patient has shortness of breath at rest, with light activity. Onset: The fernando symptoms/episode began/occurred 4 day(s) ago. Duration: The symptoms are continuous, and are steadily getting worse. The patient's shortness of breath is aggravated by coughing, exertion, walking. Associated signs and symptoms: Pertinent positives: non-productive cough, dizziness. Severity of symptoms: At their worst the symptoms were mild moderate in the emergency department the symptoms are unchanged. The patient has experienced similar episodes in the past, a few times. Historical: - Allergies: 11:19 Morphine; sv 11:19 Sulfa (Sulfonamide Antibiotics); sv - Home Meds: 11:19 Xarelto 20 mg oral tab [Active]; Sorine 80 mg oral tab [Active]; valacyclovir 500 mg sv Oral tab [Active]; - PMHx: 11:19 COPD; Non-Hodgkin's lymphoma; sv - PSHx: 11:19 Tonsillectomy; sv - Immunization history:: Adult Immunizations up to date. - Ebola Screening: : No symptoms or risks identified at this time. - Social history:: Smoking status: . ROS: 11:56 Constitutional: Negative for fever, chills, and weight loss, Eyes: Negative for injury, fernando pain, redness, and discharge, ENT: Negative for injury, pain, and discharge, Neck: Negative for injury, pain, and swelling, Cardiovascular: Negative for chest pain, palpitations, and edema, Abdomen/GI: Negative for abdominal pain, nausea, vomiting, diarrhea, and constipation, Back: Negative for injury and pain, : Negative for injury, bleeding, discharge, and swelling, MS/Extremity: Negative for injury and deformity, Skin: Negative for injury, rash, and discoloration, Neuro: Negative for headache, weakness, numbness, tingling, and seizure, Psych: Negative for depression, anxiety, suicide ideation, homicidal ideation, and hallucinations, Allergy/Immunology: Negative for hives, rash, and allergies, Endocrine: Negative for neck swelling, polydipsia, polyuria, polyphagia, and marked weight changes, Hematologic/Lymphatic: Negative for swollen nodes, abnormal bleeding, and unusual bruising. 11:56 Respiratory: Positive for cough, shortness of breath, wheezing, inspiratory, expiratory. 11:56 MS/extremity: Negative for acute changes, swelling, tenderness. Exam: 11:56 Constitutional: This is a well developed, well nourished patient who is awake, alert, fernando and in no acute distress. Head/Face: Normocephalic, atraumatic. Eyes: Pupils equal round and reactive to light, extra-ocular motions intact. Lids and lashes normal. Conjunctiva and sclera are non-icteric and not injected. Cornea within normal limits. Periorbital areas with no swelling, redness, or edema. ENT: Nares patent. No nasal discharge, no septal abnormalities noted. Tympanic membranes are normal and external auditory canals are clear. Oropharynx with no redness, swelling, or masses, exudates, or evidence of obstruction, uvula midline. Mucous membranes moist. Neck: Trachea midline, no thyromegaly or masses palpated, and no cervical lymphadenopathy. Supple, full range of motion without nuchal rigidity, or vertebral point tenderness. No Meningismus. Chest/axilla: Normal chest wall appearance and motion. Nontender with no deformity. No lesions are appreciated. Cardiovascular: Regular rate and rhythm with a normal S1 and S2. No gallops, murmurs, or rubs. Normal PMI, no JVD. No pulse deficits. Abdomen/GI: Soft, non-tender, with normal bowel sounds. No distension or tympany. No guarding or rebound. No evidence of tenderness throughout. Back: No spinal tenderness. No costovertebral tenderness. Full range of motion. Female : Normal external genitalia. Skin: Warm, dry with normal turgor. Normal color with no rashes, no lesions, and no evidence of cellulitis. MS/ Extremity: Pulses equal, no cyanosis. Neurovascular intact. Full, normal range of motion. Neuro: Awake and alert, GCS 15, oriented to person, place, time, and situation. Cranial nerves II-XII grossly intact. Motor strength 5/5 in all extremities. Sensory grossly intact. Cerebellar exam normal. Normal gait. Psych: Awake, alert, with orientation to person, place and time. Behavior, mood, and affect are within normal limits. 11:56 Respiratory: mild respiratory distress is noted, Respirations: labored breathing, that is mild, Breath sounds: bronchial sounds, decreased breath sounds, rhonchi, that are mild, wheezing: expiratory Vital Signs: 10:30 BP 116 / 43; Pulse 87; Resp 24; Temp 98.9(O); Pulse Ox 92% on 2 lpm NC; Pain 0/10; sv 10:50 Weight 66.68 kg; Height 5 ft. 8 in. (172.72 cm); sv 11:15 BP 109 / 52; Pulse 82; Resp 23; Pulse Ox 100% on Nebulizer Mask; sv 11:27 Resp 20; sv 12:10 BP 114 / 54; Pulse 86; Resp 22; Pulse Ox 95% on 2 lpm NC; sv 13:30 BP 101 / 54; Pulse 82; Resp 17; Pulse Ox 95% on 2 lpm NC; tw2 14:15 BP 102 / 59; Pulse 78; Resp 17; Pulse Ox 95% on 2 lpm NC; tw2 15:16 BP 113 / 58; Pulse 82; Resp 17; Pulse Ox 95% on 2 lpm NC; tw2 10:50 Body Mass Index 22.35 (66.68 kg, 172.72 cm) sv MDM: 10:35 Patient medically screened. [facility] 11:56 Data reviewed: vital signs, nurses notes, lab test result(s), EKG, radiologic studies, fernando plain films. 12/04 10:49 Order name: Basic Metabolic Panel; Complete Time: 11:54 [facility] 12/04 10:49 Order name: CBC with Diff; Complete Time: 11:54 [facility] 12/04 10:49 Order name: LFT's; Complete Time: 11:54 [facility] 12/04 10:49 Order name: Magnesium; Complete Time: 11:54 [facility] 12/04 10:49 Order name: NT PRO-BNP; Complete Time: 11:54 [facility] 12/04 10:49 Order name: PT-INR; Complete Time: 11:44 [facility] 12/04 10:49 Order name: Troponin (emerg Dept Use Only); Complete Time: 11:54 [facility] 12/04 10:49 Order name: Blood Culture Adult (2) [facility] 12/04 10:50 Order name: Procalcitonin [facility] 12/04 10:50 Order name: Lactate; Complete Time: 11:44 [facility] 12/04 11:28 Order name: CBC Smear Scan; Complete Time: 11:54 EDMS 12/04 12:02 Order name: Influenza Screen (a \T\ B) [facility] 12/04 15:27 Order name: Sputum Culture 12/04 15:27 Order name: Sputum Culture 12/04 10:49 Order name: XRAY Chest (1 view); Complete Time: 11:44 [facility] 12/04 10:49 Order name: EKG; Complete Time: 10:54 [facility] 12/04 10:49 Order name: Cardiac monitoring; Complete Time: 11:13 [facility] 12/04 10:49 Order name: EKG - Nurse/Tech; Complete Time: 11:13 [facility] 12/04 10:49 Order name: IV Saline Lock; Complete Time: 11:13 [facility] 12/04 10:49 Order name: Labs collected and sent; Complete Time: 11:13 [facility] 12/04 10:49 Order name: O2 Per Protocol; Complete Time: 11:13 [facility] 12/04 10:49 Order name: O2 Sat Monitoring; Complete Time: 11:13 [facility] 12/04 10:51 Order name: INCENTIVE SPIROMETRY [facility] 12/04 13:21 Order name: Diet Regular; Complete Time: 13:22 sv Administered Medications: 10:56 Drug: NS 0.9% 1000 ml Route: IV; Rate: 75 ml/hr; Site: right antecubital; sv 15:18 Follow up: IV Status: Infusion continued upon admission tw2 10:56 Drug: Albuterol - atroVENT (3:1) (2.5 mg - 0.5 mg) 3 ml Route: Nebulizer; sv 11:30 Follow up: Response: No adverse reaction sv 10:56 Drug: SOLU-Medrol 2 mg/kg {Note: 125 mg IVP given per Dr Boucher.} Route: IVP; Site: sv right antecubital; 11:30 Follow up: Response: No adverse reaction sv 10:58 Drug: levofloxacin 500 mg Volume: 100 ml; Route: IVPB; Infused Over: 60 mins; Site: sv right antecubital; 12:09 Follow up: Response: No adverse reaction; IV Status: Completed infusion; IV Intake: sv 100ml 11:00 Drug: Pepcid 20 mg Route: IVP; Site: right antecubital; sv 11:30 Follow up: Response: No adverse reaction sv 12:04 Drug: Cefepime 1 grams {Note: given IVP per pharmacy.} Route: IVPB; Rate: 200 ml/hr; sv Infused Over: 30 mins; Site: right antecubital; 12:08 Follow up: Response: No adverse reaction; IV Status: Completed infusion; IV Intake: 10mlsv Disposition: 12/04/18 12:00 Hospitalization ordered by Everette Amezquita for Inpatient Admission. Preliminary diagnosis are Dyspnea, Chronic obstructive pulmonary disease with (acute) exacerbation, Atelectasis, Pneumonia due to other specified bacteria. - Bed requested for Telemetry/MedSurg (Inpatient). - Status is Inpatient Admission. sv - Condition is Fair. - Problem is new. - Symptoms have improved. UTI on Admission? No Signatures: Dispatcher [employer] EDGlory Lowe RN RN sv Woody, Diana, RN RN dw Anderson, Corey, MD MD cha Wise, Tara RN RN tw2 Corrections: (The following items were deleted from the chart) 14:27 12:00 Hospitalization Ordered by Everette Amezquita DO for Inpatient Admission. Preliminary diagnosis is Dyspnea; Chronic obstructive pulmonary disease with (acute) exacerbation; Atelectasis; Pneumonia due to other specified bacteria. Bed requested for Telemetry/MedSurg (Inpatient). Status is Inpatient Admission. Condition is Fair. Problem is new. Symptoms have improved. UTI on Admission? No. fernando 15:22 14:27 12/04/2018 12:00 Hospitalization Ordered by Everette Amezquita DO for Inpatient tw2 Admission. Preliminary diagnosis is Dyspnea; Chronic obstructive pulmonary disease with (acute) exacerbation; Atelectasis; Pneumonia due to other specified bacteria. Bed requested for Telemetry/MedSurg (Inpatient). Status is Inpatient Admission. Condition is Fair. Problem is new. Symptoms have improved. UTI on Admission? No. nina 15:28 15:22 12/04/2018 12:00 Hospitalization Ordered by Everette Amezquita DO for Inpatient sv Admission. Preliminary diagnosis is Dyspnea; Chronic obstructive pulmonary disease with (acute) exacerbation; Atelectasis; Pneumonia due to other specified bacteria. Bed requested for Telemetry/MedSurg (Inpatient). Status is Inpatient Admission. Condition is Fair. Problem is new. Symptoms have improved. UTI on Admission? No. tw2
--- NOTE | 2018-12-04 14:06 | P.HP ---
Certification for Inpatient Patient admitted to: Inpatient With expected LOS: >2 Midnights Patient will require the following post-hospital care: None Practitioner: I am a practitioner with admitting privileges, knowledge of patient current condition, hospital course, and medical plan of care. Services: Services provided to patient in accordance with Admission requirements found in Title 42 Section 412.3 of the Code of Federal Regulations Patient History Date of Service: 12/04/18 Primary Care Provider: Dr. Fong; Oncology-Dr. Santiago; Pulm-Dr. Waters; Cardiology-Dr. Bird Reason for admission: Shortness of breath, cough History of Present Illness: 63-year-old female presented to the emergency room with shortness of breath and cough. Patient reports increasing shortness of breath and cough over the last several days. Increased sputum also noted. She further reports some wheezing noted with a cough. She has being feeling very tired. She has had poor oral intake. Patient with history of COPD, atrial fibrillation on chronic anti coagulation therapy, non-Hodgkin's lymphoma currently in remission. Patient came to the ER for evaluation. In the ER patient evaluated. Blood pressure 114/54, white count 7.3, hemoglobin 11.2. Troponin and lactic acid within normal range. Sodium 135, potassium 4.5, chest x-ray shows possible right lower lobe pneumonia versus atelectasis. Wheezing noted. Influenza test negative. Patient admitted for further treatment. When I saw the patient ER, patient with cough and congestion. Daughter at bedside. Patient does not appear septic. Allergies morphine Allergy (Verified 02/16/18 16:34) HALLUCINATIONS Sulfa (Sulfonamide Antibiotics) Allergy (Verified 02/16/18 16:34) UNK Home medications list reviewed: Yes Home Medications: Albuterol Neb [Proventil 0.083% Neb Soln] 2.5 mg IH BID PRN 11/10/18 Budesonide/Formoterol Fumarate [Symbicort 160-4.5 Mcg Inhaler] 2 puff IH BID Valacyclovir [Valtrex*] 500 mg PO DAILY 11/10/18 Rivaroxaban [Xarelto] 20 mg PO DAILY #30 tablet 11/12/18 Sotalol HCl [Betapace*] 80 mg PO BID 6AM 6PM #60 tab 11/12/18 - Past Medical/Surgical History Diabetic: No -: COPD -: Non Hodgkins Lymphoma -: Obesity -: Atrial fibrillation on chronic anti coagulation therapy -: Tonsillectomy -: -: Left wrist repair Psychosocial/ Personal History: She is . She has 1 child. She works at a local [employer]. - Family History Father -: Heart disease Mother -: Heart disease, Hypertension, Diabetes Brother -: Cancer Sister -: Cancer - Social History Smoking Status: Never smoker Alcohol use: Yes CD- Drugs: No Caffeine use: Yes Place of Residence: Home Review of Systems General: Weakness, As per HPI Eyes: Unremarkable ENT: Nose Congestion, As per HPI Respiratory: Cough, Shortness of Breath, Wheezing, As per HPI Cardiovascular: Unremarkable Gastrointestinal: Unremarkable Genitourinary: Unremarkable Musculoskeletal: Unremarkable Integumentary: Unremarkable Neurological: Unremarkable Lymphatics: Unremarkable Physical Examination - Physical Exam General: Alert, In no apparent distress, Oriented x3, Cooperative HEENT: Atraumatic, Normocephalic, PERRLA, Other (Dry mucous membranes) Neck: Supple, No Thyromegaly Respiratory: Crackles/rales (To the right base), Expiratory wheezes (Bilateral) , Inspiratory wheezes Cardiovascular: Normal pulses, Regular rate/rhythm Gastrointestinal: Normal bowel sounds, Soft and benign, Non-distended, No tenderness, No masses, No rebound, No guarding Musculoskeletal: No contractures, No erythema, No tenderness, No warmth Integumentary: No tenderness/swelling, No erythema, No warmth, No cyanosis Neurological: Normal speech, Normal strength at 5/5 x4 extr, Normal tone, Normal affect - Studies Laboratory Data (last 24 hrs) 12/04/18 10:40: PT 20.5 H, INR 1.78 12/04/18 10:40: WBC 7.3, Hgb 11.2 L, Hct 33.6 L, Plt Count 314 12/04/18 10:40: Sodium 135 L, Potassium 4.5, BUN 11, Creatinine 0.50 L, Glucose 91, Magnesium 1.9, Total Bilirubin 0.5, AST 58 H, ALT 46, Alkaline Phosphatase 106 Microbiology Data (last 24 hrs): 12/04/18 12:12 Nasopharnyx Influenza Type A Antigen Screen - Final 12/04/18 12:12 Nasopharnyx Influenza Type B Antigen Screen - Final Assessment and Plan - Plan Impression: Cough, shortness of breath secondary to COPD exacerbation complicated with right lower lobe pneumonia versus atelectasis Non-Hodgkin's lymphoma, in remission Chronic atrial fibrillation on chronic anti coagulation therapy Mild dehydration Plan: Cough, shortness of breath secondary to COPD exacerbation complicated with right lower lobe pneumonia versus atelectasis: Patient will be admitted for treatment. Will provide prednisone, Brovana and albuterol. Will start Rocephin and Zithromax to cover for pneumonia. Will provide incentive spirometer. Will consult pulmonology to further evaluate and make recommendations. Continue to wean off oxygen. Patient may require oxygen at discharge. Anticipate discharge home within the next 48-72 hr. Non-Hodgkin's lymphoma, in remission: The patient currently in remission. Patient takes valacyclovir for immunosuppression. Will continue with her medication. Chronic atrial fibrillation on chronic anti coagulation therapy: Will continue with her medication of sotalol 80 mg 1 pill twice daily and Xarelto 20 mg daily. Mild dehydration: Will provide IV fluids. Encourage oral intake. Will monitor closely. Discharge Plan: Home Plan to discharge in: 72 Hours - Advance Directives Does patient have a Living Will: No Does patient have a Durable POA for Healthcare: No - Code Status/Comfort Care Code Status Assessed: Yes (Patient is full code.) Time Spent Managing Pts Care (In Minutes): 55
[2018-12-04] MEDS ORDERED: NA CHLORIDE 0.9% 1,000 ML IV SCH (15:48)
[2018-12-04] MEDS ORDERED: ONDANSETRON 4 MG/2 ML VIAL IV PRN (15:48)
[2018-12-04] MEDS ORDERED: ALBUTEROL 2.5 MG/3 ML NEB SOL NEB PRN (15:48)
[2018-12-04] MEDS ORDERED: ACETAMINOPHEN 500 MG TAB PO PRN (15:48)
[2018-12-04] MEDS ORDERED: IPRATROPIUM BROM 0.5MG/2.5ML NEB PRN (15:48)
[2018-12-04 17:03] LABS: Thyroid Stimulating Hormone 0.01 uIU/mL (0.360-3.740)
[2018-12-04] MEDS: CEFTRIAXONE/SWI 1gm 1 GM/10 ML SYR IVP SCH (17:12)
[2018-12-04] MEDS: RIVAROXABAN 20 MG TABLET PO SCH (17:13)
[2018-12-04] MEDS: SOTALOL HCL 80 MG TAB PO SCH (17:13)
[2018-12-04] MEDS: VALACYCLOVIR 500 MG TAB PO SCH (17:13)
--- NOTE | 2018-12-04 17:25 | EKG ---
Test Date: 2018-12-04 Test Time: 10:44:45 Lever Miller: BEN MEASUREMENT RESULTS: Intervals: Rate: 85 ID: [id number] QRSD: 112 QT: 392 QTc: 466 [place]: P: 66 ID: [id number] QRS: 68 T: 69 INTERPRETIVE STATEMENTS: Normal sinus rhythm Incomplete right bundle branch block Borderline ECG Compared to ECG 11/11/2018 15:18:19 Atrial fibrillation no longer present ST (T wave) deviation no longer present Electronically Signed On 12-04-18 17:24:25 [employer] by Neri Burch
[2018-12-04] MEDS ORDERED: AZITHROMYCIN IV 500 MG in NA CHLORIDE 0.9% 250 ML IVPB SCH (18:00)
[2018-12-04] MEDS: ARFORMOTEROL TARTRATE 15 MCG/2 ML VIAL.NEB NEB SCH (20:00)
[2018-12-04] MEDS: GUAIFENESIN 600 MG SA TAB PO SCH (21:19)
[2018-12-04] MEDS: predniSONE 20 MG TAB PO SCH (21:19)
[2018-12-04] MEDS ORDERED: ZOLPIDEM TARTRATE 5 MG TABLET PO PRN (22:11)
[2018-12-05] MEDS: SOTALOL HCL 80 MG TAB PO SCH ×2 (06:13→17:42)
[2018-12-05 06:15] LABS: Absolute Lymphocytes (CBC) 0.3 K/uL (0.7-4.9); Absolute Monocytes 0.1 K/uL (0.1-1.3); Absolute Neutrophil 4.9 K/uL (1.8-8.0); Basophils % 0.1 % (0-1.3); Hematocrit 32.2 % (36.0-45.0); Lymphocytes % 6.2 % (15.3-44.8); MPV 7.3 fL (7.6-11.3); Monocytes % 2.6 % (3.3-12.3); RBC Red Blood Cell Count 3.61 M/uL (3.86-4.86)
[2018-12-05 06:29] LABS: BUN Blood Urea Nitrogen 15 mg/dL (7-18); Bicarbonate 27 mmol/L (21-32); Glucose Level 180 mg/dL (74-106); Magnesium 2.1 mg/dL (1.8-2.4); Potassium 4.5 mmol/L (3.5-5.1); Sodium Level 139 mmol/L (136-145)
[2018-12-05 08:07] LABS: Urine Appearance CLOUDY; Urine Bilirubin NEGATIVE (NEG); Urine Blood NEGATIVE (NEG); Urine Color YELLOW; Urine Glucose TRACE (NEG); Urine Protein NEGATIVE (NEG); Urine Specific Gravity 1.015 (1.005-1.030); Urine Urobilinogen 0.2 mg/dL (0.2-1.0)
[2018-12-05 08:08] LABS: Urine Microscopic Reflex ORDER UMIC
--- NOTE | 2018-12-05 08:27 | RAD REPORT ---
EXAM DESCRIPTION: RAD - Chest Pa And Lat (2 Views) - 12/05/2018 6:44 am CLINICAL HISTORY: follow up COPD/RLL pneumonia Chest pain. COMPARISON: Chest Single View dated 12/04/2018; Chest Single View dated 11/10/2018; Chest Pa And Lat ( 2 Views) dated 02/16/2018; Chest Single View dated 01/20/2018 FINDINGS: Diffuse emphysema is present. There has been moderate improvement in the posterior right l ower lobe infiltrate since the comparative study compatible with moderate improvement in pneumonia. T he heart is normal in size. No displaced fractures. Thoracic degenerative changes are present. IMPRESSION: Moderate improvement in posterior right lower lobe pneumonia.
[2018-12-05] MEDS: ARFORMOTEROL TARTRATE 15 MCG/2 ML VIAL.NEB NEB SCH ×2 (08:37→20:00)
--- NOTE | 2018-12-05 08:51 | P.CNS ---
Date of Consult: 12/05/18 Primary Care Provider: Dr. Fong; Oncology-Dr. Santiago; Pulm-Dr. Waters; Cardiology-Dr. Bird Chief Complaint: Pneumonia History of Present Illness: Patient is 63 years of age she has a history of non-Hodgkin's lymphoma in remission apparently had a CT scan done on and was found to have a right lower lobe opacity became progressively worse over the weekend started having worsening cough productive yellow-green sputum worsening dyspnea and was admitted to the hospital is currently doing much better denies any chest pain questionable history of COPD although she has never smoked Allergies morphine Allergy (Verified 12/04/18 15:48) HALLUCINATIONS Sulfa (Sulfonamide Antibiotics) Allergy (Verified 12/04/18 15:48) UNK Home Medications: Albuterol Neb [Proventil 0.083% Neb Soln] 2.5 mg IH BID PRN 11/10/18 Valacyclovir [Valtrex*] 500 mg PO DAILY 11/10/18 Rivaroxaban [Xarelto] 20 mg PO DAILY #30 tablet 11/12/18 Sotalol HCl [Betapace*] 80 mg PO BID 6AM 6PM #60 tab 11/12/18 - Past Medical/Surgical History Diabetic: No -: COPD -: Non Hodgkins Lymphoma -: Obesity -: Atrial fibrillation on chronic anti coagulation therapy -: Tonsillectomy -: -: Left wrist repair -: sinus sx Psychosocial/ Personal History: She is . She has 1 child. 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 - Family History Father Medical History: Heart disease Mother Medical History: Heart disease, Hypertension, Diabetes Brother Medical History: Cancer Sister Medical History: Cancer - Social History Alcohol use: No CD- Drugs: No Caffeine use: Yes Place of Residence: Home Review of Systems 10-point ROS is otherwise unremarkable Physical Examination Temp Pulse Resp BP Pulse Ox 97.6 F 68 20 120/56 L 92 12/05/18 04:00 12/05/18 04:00 12/05/18 04:00 12/05/18 04:00 12/05/18 04:00 General: Alert, Oriented x3 Neck: Supple Respiratory: Clear to auscultation bilaterally Cardiovascular: No edema, Regular rate/rhythm Gastrointestinal: Normal bowel sounds, Soft and benign Laboratory Data (last 24 hrs) 12/04/18 10:40: PT 20.5 H, INR 1.78 12/04/18 10:40: WBC 7.3, Hgb 11.2 L, Hct 33.6 L, Plt Count 314 12/04/18 10:40: Sodium 135 L, Potassium 4.5, BUN 11, Creatinine 0.50 L, Glucose 91, Magnesium 1.9, Total Bilirubin 0.5, AST 58 H, ALT 46, Alkaline Phosphatase 106 - Problems (1) Pneumonia Current Visit: Yes Status: Acute Plan: Patient is 63 years of age with history of non-Hodgkin's lymphoma in remission history of questionable COPD although she has never smoked admitted with acute onset of pulmonary complaints including worsening dyspnea cough shortness of breath labs reviewed normal white count chest x-ray shows right lower lobe possible pneumonia CT scan did show some atelectasis continue with antibiotics Dc Zithromax possible discharge home tomorrow on Augmentin check room air pulse ox continue with bronchodilators she will need to be followed up as an outpatient he also need outpatient pulmonary function testing patient takes nebulizers on a daily basis although she remains asymptomatic feeling better since admission Qualifiers: Pneumonia type: due to unspecified organism
[2018-12-05 09:13] LABS: Urine Bacteria <20 /HPF (<20); Urine Culture Reflex Order REFLEXED; Urine RBC <5 /HPF (NONE SEEN)
[2018-12-05] MEDS: CEFTRIAXONE/SWI 1gm 1 GM/10 ML SYR IVP SCH (09:18)
[2018-12-05] MEDS: VALACYCLOVIR 500 MG TAB PO SCH (09:19)
[2018-12-05] MEDS: predniSONE 20 MG TAB PO SCH ×2 (09:19→20:15)
[2018-12-05] MEDS: GUAIFENESIN 600 MG SA TAB PO SCH ×2 (09:19→20:15)
--- NOTE | 2018-12-05 13:04 | P.PN ---
Subjective Date of Service: 12/05/18 Primary Care Provider: Dr. Fong; Oncology-Dr. Santiago; Pulm-Dr. Waters; Cardiology-Dr. Bird Chief Complaint: Pneumonia Subjective: Improving Physical Examination - Vital Signs Temperature: 97.5 F Blood Pressure: 120/59 Pulse: 67 Respirations: 20 Pulse Ox (%): 93 - Physical Exam General: Alert, In no apparent distress, Oriented x3, Cooperative HEENT: Atraumatic Neck: Supple Respiratory: Expiratory wheezes (Less wheezing noted.), Other (Improvement in air movement.) Cardiovascular: Normal pulses, Regular rate/rhythm Gastrointestinal: Normal bowel sounds, Soft and benign, Non-distended, No tenderness, No masses, No rebound, No guarding Musculoskeletal: No erythema, No tenderness, No warmth Integumentary: No tenderness/swelling, No erythema, No warmth, No cyanosis Neurological: Normal speech, Normal strength at 5/5 x4 extr, Normal tone, Normal affect - Studies Microbiology Data (last 24 hrs): 12/04/18 12:12 Nasopharnyx Influenza Type A Antigen Screen - Final 12/04/18 12:12 Nasopharnyx Influenza Type B Antigen Screen - Final Medications List Reviewed: Yes Assessment & Plan Discharge Plan: Home Plan to discharge in: 24 Hours Physician Review Additional Text: Impression: Cough, shortness of breath secondary to COPD exacerbation complicated with right lower lobe pneumonia versus atelectasis Non-Hodgkin's lymphoma, in remission Chronic atrial fibrillation on chronic anti coagulation therapy Mild dehydration Plan: Cough, shortness of breath secondary to COPD exacerbation complicated with right lower lobe pneumonia versus atelectasis: Patient improving. Room-air saturations stable but room-air saturations with exertion still low. Will continue monitor the patient closely. Anticipate discharge in the next 24 hr. Continue with treatment. Patient may require oxygen at discharge. Non-Hodgkin's lymphoma, in remission: The patient currently in remission. Patient takes valacyclovir for immunosuppression. Will continue with her medication. Chronic atrial fibrillation on chronic anti coagulation therapy: Will continue with her medication of sotalol 80 mg 1 pill twice daily and Xarelto 20 mg daily. Mild dehydration: Will provide IV fluids. Encourage oral intake. Will monitor closely. Time Spent Managing Pts Care (In Minutes): 55
[2018-12-05] MEDS: RIVAROXABAN 20 MG TABLET PO SCH (17:42)
[2018-12-05] MEDS: BENZONATATE 100 MG CAP PO PRN (20:15)
[2018-12-05] MEDS ORDERED: MELATONIN 3 MG TABLET PO PRN (21:39)
[2018-12-06] MEDS: SOTALOL HCL 80 MG TAB PO SCH (05:23)
[2018-12-06] MEDS: BENZONATATE 100 MG CAP PO PRN (05:23)
[2018-12-06 05:59] LABS: Absolute Lymphocytes (CBC) 0.2 K/uL (0.7-4.9); Absolute Monocytes 0.3 K/uL (0.1-1.3); Absolute Neutrophil 7.9 K/uL (1.8-8.0); Basophils % 0.1 % (0-1.3); Hematocrit 31.9 % (36.0-45.0); Lymphocytes % 2.9 % (15.3-44.8); MPV 7.4 fL (7.6-11.3); Monocytes % 3.6 % (3.3-12.3); RBC Red Blood Cell Count 3.58 M/uL (3.86-4.86)
[2018-12-06 06:15] LABS: BUN Blood Urea Nitrogen 21 mg/dL (7-18); Bicarbonate 27 mmol/L (21-32); Glucose Level 148 mg/dL (74-106); Magnesium 2.2 mg/dL (1.8-2.4); Potassium 4.7 mmol/L (3.5-5.1); Sodium Level 141 mmol/L (136-145)
[2018-12-06 06:25] LABS: Blood Morphology Comment NOT SEEN (NOT SEEN); Platelet Estimate ADEQ; Toxic Granulation PRESENT
[2018-12-06] MEDS: VALACYCLOVIR 500 MG TAB PO SCH (09:16)
[2018-12-06] MEDS: GUAIFENESIN 600 MG SA TAB PO SCH (09:16)
[2018-12-06] MEDS: predniSONE 20 MG TAB PO SCH (09:16)
[2018-12-06] MEDS: CEFTRIAXONE/SWI 1gm 1 GM/10 ML SYR IVP SCH (09:17)
--- NOTE | 2018-12-06 10:08 | P.DS ---
Admission Date: 12/04/18 Discharge Date: 12/06/18 Primary Care Provider: Dr. Fong; Oncology-Dr. Santiago; Pulm-Dr. Waters; Cardiology-Dr. Bird Disposition: DC HOME/HOME HEALTH CARE Discharge Condition: GOOD Reason for Admission: Pneumonia Consultations: Pulmonary-Dr. Waters Procedures: CXR: COMPARISON: Chest Single View dated 12/04/2018; Chest Single View dated 2018; Chest Pa And Lat (2 Views) dated 02/16/2018; Chest Single View dated 2017 FINDINGS: Diffuse emphysema is present. There has been moderate improvement in the posterior right lower lobe infiltrate since the comparative study compatible with moderate improvement in pneumonia. The heart is normal in size. No displaced fractures. Thoracic degenerative changes are present. IMPRESSION: Moderate improvement in posterior right lower lobe pneumonia. Medical Problem List: Cough, shortness of breath secondary to COPD exacerbation complicated with right lower lobe pneumonia with hypoxia requiring oxygen at discharge Non-Hodgkin's lymphoma, in remission Chronic atrial fibrillation on chronic anti coagulation therapy Mild dehydration Abnormal TSH likely underlying Hyperthyroidism Anemia likely of chronic disease Brief History of Present Illness: 63-year-old female presented to the emergency room with shortness of breath and cough. Patient reports increasing shortness of breath and cough over the last several days. Increased sputum also noted. She further reports some wheezing noted with a cough. She has being feeling very tired. She has had poor oral intake. Patient with history of COPD, atrial fibrillation on chronic anti coagulation therapy, non-Hodgkin's lymphoma currently in remission. Patient came to the ER for evaluation. In the ER patient evaluated. Blood pressure 114/54, white count 7.3, hemoglobin 11.2. Troponin and lactic acid within normal range. Sodium 135, potassium 4.5, chest x-ray shows possible right lower lobe pneumonia versus atelectasis. Wheezing noted. Influenza test negative. Patient admitted for further treatment. When I saw the patient ER, patient with cough and congestion. Daughter at bedside. Patient does not appear septic. Hospital Course: Patient presented with cough and shortness of breath. Patient found to have COPD exacerbation with right lower lobe pneumonia. Her condition improved during her stay. Patient seen and evaluated by pulmonology. At discharge she will continue with Augmentin 875 mg 1 pill twice daily for 7 days. Patient will also be provided Tessalon Perles 100 mg 3 times a day as needed for cough and Mucinex 600 mg twice daily for congestion. Patient requires oxygen at discharge. Patient will continue with oxygen to maintain sats above 90%. This can be weaned off over time. Recommend to follow up with pulmonology in 1-2 weeks. Recommend to recheck chest x-ray in 2 weeks to monitor resolution. Patient also likely with underlying COPD. At discharge she will continue with Dulera 2 puffs twice daily and Pro air 2 puffs 3 times a day as needed for shortness of breath. Patient will also continue with prednisone 20 mg 1 pill twice daily for 5 days then 1 pill once daily for 5 days. Recommend to follow up with pulmonology as the patient will have pulmonary function tests as an outpatient to further address. Patient with non-Hodgkin's lymphoma. Currently in remission. Patient will continue with Valcyclovir as previous. Patient will follow up with oncology as directed. Patient with chronic atrial fibrillation on chronic anti coagulation therapy. This remained stable. Patient will continue with sotalol 80 mg 1 pill twice daily and Xarelto 20 mg daily. Recommend to follow up with cardiology as directed. Patient found to have abnormal tsh and T4. Patient may have underlying hyperthyroidism. Recommend to recheck lab in 2 weeks. Patient may need endocrinology evaluation as an outpatient to further address. Patient with anemia likely of chronic disease. This can be further evaluated by her oncologist. Patient may required GI evaluation in the future to further address. Recommend to recheck CBC in 1-2 weeks to monitor her progress. Vital Signs/Physical Exam: Temp Pulse Resp BP Pulse Ox 98.3 F 61 18 134/68 96 12/06/18 04:00 12/06/18 04:00 12/06/18 04:00 12/06/18 04:00 12/06/18 04:00 General: Alert, In no apparent distress, Oriented x3, Cooperative HEENT: Atraumatic Neck: Supple Respiratory: Clear to auscultation bilaterally, Normal air movement, Crackles/ rales (All crackles to the right side) Cardiovascular: Normal pulses, Regular rate/rhythm Gastrointestinal: Normal bowel sounds, Soft and benign, Non-distended, No tenderness, No masses, No rebound, No guarding Musculoskeletal: No erythema, No tenderness, No warmth Integumentary: No tenderness/swelling, No erythema, No warmth, No cyanosis Neurological: Normal speech, Normal strength at 5/5 x4 extr, Normal tone, Normal affect Laboratory Data at Discharge: WBC 8.4 K/uL (4.3-10.9) D 12/06/18 05:18 Hgb 10.7 g/dL (12.0-15.0) L 12/06/18 05:18 Hct 31.9 % (36.0-45.0) L 12/06/18 05:18 Plt Count 334 K/uL (152-406) 12/06/18 05:18 PT 20.5 SECONDS (9.5-12.5) H 12/04/18 10:40 INR 1.78 12/04/18 10:40 Sodium 141 mmol/L (136-145) 12/06/18 05:18 Potassium 4.7 mmol/L (3.5-5.1) 12/06/18 05:18 BUN 21 mg/dL (7-18) H 12/06/18 05:18 Creatinine 0.57 mg/dL (0.55-1.3) 12/06/18 05:18 Glucose 148 mg/dL (74-106) H 12/06/18 05:18 Magnesium 2.2 mg/dL (1.8-2.4) 12/06/18 05:18 Total Bilirubin 0.5 mg/dL (0.2-1.0) 12/04/18 10:40 AST 58 U/L (15-37) H 12/04/18 10:40 ALT 46 U/L (12-78) 12/04/18 10:40 Alkaline Phosphatase 106 U/L (45-117) 12/04/18 10:40 Home Medications: Valacyclovir [Valtrex*] 500 mg PO DAILY 11/10/18 Rivaroxaban [Xarelto] 20 mg PO DAILY #30 tablet 11/12/18 Sotalol HCl [Betapace*] 80 mg PO BID 6AM 6PM #60 tab 11/12/18 Albuterol Neb [Proventil 0.083% Neb Soln] 2.5 mg IH TID PRN #1 amp 12/06/18 Amoxicillin/Potassium Clav [Augmentin 875-125 Tablet] 1 each PO BID #14 tablet 12/06/18 Benzonatate [Tessalon Perle*] 100 mg PO TID PRN #30 cap 12/06/18 Guaifenesin [Mucinex] 600 mg PO BID #30 tab.er.12h 12/06/18 Mometasone/Formoterol [Dulera 200 Mcg/5 Mcg Inhaler] 2 puff IH BID #1 inhaler predniSONE [Prednisone*] 20 mg PO SEECOM #15 tab 12/06/18 New Medications: Albuterol Neb [Proventil 0.083% Neb Soln] 2.5 mg IH TID PRN #1 amp PRN Reason: Shortness Of Breath Amoxicillin/Potassium Clav [Augmentin 875-125 Tablet] 1 each PO BID #14 tablet Benzonatate [Tessalon Perle*] 100 mg PO TID PRN #30 cap PRN Reason: Cough Guaifenesin [Mucinex] 600 mg PO BID #30 tab.er.12h Mometasone/Formoterol [Dulera 200 Mcg/5 Mcg Inhaler] 2 puff IH BID #1 inhaler predniSONE [Prednisone*] 20 mg PO SEECOM #15 tab Patient Discharge Instructions: 1. Patient will follow up with a PCP in 1 week to follow up this hospitalization. 2. Patient presented with cough and shortness of breath. Patient found to have COPD exacerbation with right lower lobe pneumonia. Her condition improved during her stay. Patient seen and evaluated by pulmonology. At discharge she will continue with Augmentin 875 mg 1 pill twice daily for 7 days. Patient will also be provided Tessalon Perles 100 mg 3 times a day as needed for cough and Mucinex 600 mg twice daily for congestion. Patient requires oxygen at discharge. Patient will continue with oxygen to maintain sats above 90%. This can be weaned off over time. Recommend to follow up with pulmonology in 1-2 weeks. Recommend to recheck chest x-ray in 2 weeks to monitor resolution. Patient also likely with underlying COPD. At discharge she will continue with Dulera 2 puffs twice daily and Pro air 2 puffs 3 times a day as needed for shortness of breath. Patient will also continue with prednisone 20 mg 1 pill twice daily for 5 days then 1 pill once daily for 5 days. Recommend to follow up with pulmonology as the patient will have pulmonary function tests as an outpatient to further address. 3. Patient with non-Hodgkin's lymphoma. Currently in remission. Patient will continue with Valcyclovir as previous. Patient will follow up with oncology as directed. 4. Patient with chronic atrial fibrillation on chronic anti coagulation therapy. This remained stable. Patient will continue with sotalol 80 mg 1 pill twice daily and Xarelto 20 mg daily. Recommend to follow up with cardiology as directed. 5. Patient found to have abnormal tsh and T4. Patient may have underlying hyperthyroidism. Recommend to recheck lab in 2 weeks. Patient may need endocrinology evaluation as an outpatient to further address. 6. Patient with anemia likely of chronic disease. This can be further evaluated by her oncologist. Patient may required GI evaluation in the future to further address. Recommend to recheck CBC in 1-2 weeks to monitor her progress. Diet: AHA Activity: Fall precautions Time spent managing pt's care (in minutes): 55
[2018-12-06] MEDS: ARFORMOTEROL TARTRATE 15 MCG/2 ML VIAL.NEB NEB SCH (10:11)
[2018-12-06 12:19] VITALS: O2SAT 97
[2018-12-06 15:57] VITALS: BP 109/56; TEMP 98.1
== END 2018-12-06 15:58 | disposition home or self-care (01) | DRG 190 ==
LOC: ER 10:32 → ERHOLD 12:35 → 2ND 15:17
PROVIDERS: ADMIT Family Medicine; ATTEND Family Medicine
DX: J44.1 Chronic obstructive pulmonary disease with (acute) exacerbation (principal); J18.9 Pneumonia, unspecified organism; C85.90 Non-Hodgkin lymphoma, unspecified, unspecified site; J44.0 Chronic obstructive pulmonary disease with (acute) lower respiratory infection; I48.2 Chronic atrial fibrillation; Z79.01 Long term (current) use of anticoagulants; E86.0 Dehydration; E05.90 Thyrotoxicosis, unspecified without thyrotoxic crisis or storm; D63.8 Anemia in other chronic diseases classified elsewhere; Z88.5 Allergy status to narcotic agent; Z88.2 Allergy status to sulfonamides; R09.02 Hypoxemia
CPT/HCPCS: 36415; 71045; 71046; 80048; 80076; 81003; 81015; 83605; 83735; 83880; 84145; 84439; 84443; 84484; 85025; 85610; 87040; 87070; 87077; 87086; 87088; 87186; 87205; 87804; 93005; 94640; 96361; 96365; 96375; 99285; J0456; J0692; J0696; J2930; J7030; J7512; J7605

== ENCOUNTER 2019-01-16 05:14 | Inpatient (IN) | payer OTHER ==
[2019-01-16] MEDS ORDERED: IPRATROPIUM BROM 0.5MG/2.5ML ONE (05:30)
[2019-01-16] MEDS ORDERED: ALBUTEROL 2.5 MG/3 ML NEB SOL ONE (05:30)
[2019-01-16 06:09] LABS: Absolute Lymphocytes (CBC) 0.2 K/uL (0.7-4.9); Absolute Monocytes 0.1 K/uL (0.1-1.3); Absolute Neutrophil 3.9 K/uL (1.8-8.0); Basophils % 0.2 % (0-1.3); Eosinophils % 0.3 % (0-4.4); Hematocrit 37.9 % (36.0-45.0); Lymphocytes % 4.9 % (15.3-44.8); MPV 7.2 fL (7.6-11.3); Monocytes % 2.7 % (3.3-12.3); RBC Red Blood Cell Count 4.19 M/uL (3.86-4.86)
[2019-01-16] MEDS ORDERED: ONDANSETRON 4 MG/2 ML VIAL ONE (06:10)
[2019-01-16 06:16] LABS: ALT/SGPT 34 U/L (12-78); AST/SGOT 33 U/L (15-37); Albumin 2.9 g/dL (3.4-5.0); Alkaline Phosphatase 97 U/L (45-117); BUN Blood Urea Nitrogen 11 mg/dL (7-18); Bicarbonate 33 mmol/L (21-32); Bilirubin Direct 0.2 mg/dL (0-0.2); Bilirubin Total 0.5 mg/dL (0.2-1.0); CKMB Creatine Kinase MB < 1.0 ng/mL (0.3-3.6); Creatine Phosphokinase 18 U/L (26-192); Glucose Level 96 mg/dL (74-106); Lipase 86 U/L (73-393); NT PRO-BNP 1028 pg/mL (<125); Potassium 3.8 mmol/L (3.5-5.1); Protein, Total 7.3 g/dL (6.4-8.2); Sodium Level 141 mmol/L (136-145); Troponin (Emerg Dept Use Only) < 0.02 ng/mL (0.0-0.045)
[2019-01-16 06:23] LABS: Protime INR 1.7
--- NOTE | 2019-01-16 07:24 | ER ---
Nurse's Notes [facility] Name: Mary Estrada Age: 63 yrs Sex: Female : 1955 Arrival Date: 01/16/2019 Time: 05:16 Bed 6 Private MD: Diagnosis: COPD exacerbation Presentation: 01/16 05:21 Presenting complaint: EMS states: they were toned out for report of pt having bb difficulty breathing, pt states she started having a little difficulty breathing yesterday but it worsened last night. Transition of care: patient was not received from another setting of care. Onset of symptoms was January 15, 2019. Risk Assessment: Do you want to hurt yourself or someone else? Patient reports no desire to harm self or others. Initial Sepsis Screen: Does the patient meet any 2 criteria? No. Patient's initial sepsis screen is negative. Does the patient have a suspected source of infection? No. Patient's initial sepsis screen is negative. Care prior to arrival: Medication(s) given: Albuterol Neb x 1, Atrovent Neb x 1. 05:21 Method Of Arrival: EMS: [facility] bb 05:21 Acuity: SIMEON 2 bb Triage Assessment: 06:02 General: Appears distressed, Behavior is cooperative. Respiratory: Reports shortness of ao breath Onset: The symptoms/episode began/occurred yesterday, the patient has moderate shortness of breath. Historical: - Allergies: 05:24 Morphine; bb 05:24 Sulfa (Sulfonamide Antibiotics); bb - Home Meds: 05:24 Sorine 80 mg Oral tab [Active]; Xarelto 20 mg Oral tab [Active]; Advair Diskus Inhl bb [Active]; benzonatate oral oral [Active]; - PMHx: 05:24 COPD; non-hodgkin's lymphoma; bb - PSHx: 05:24 Tonsillectomy; bb - Immunization history:: Adult Immunizations up to date, Pneumococcal vaccine is up to date, Flu vaccine is not up to date. - Social history:: Smoking status: . - Ebola Screening: : No symptoms or risks identified at this time. Screenin:01 Abuse screen: Denies threats or abuse. Denies injuries from another. Nutritional ao screening: No deficits noted. Tuberculosis screening: No symptoms or risk factors identified. Fall Risk None identified. Assessment: 05:30 General: Appears distressed, Behavior is calm, cooperative. Pain: Denies pain. Neuro: ao Level of Consciousness is awake, alert, obeys commands, Oriented to person, place, time, situation, Appropriate for age Moves all extremities. Full function Speech is normal, Facial symmetry appears normal, Pupils are PERRLA. Cardiovascular: Reports nausea, shortness of breath, Denies chest pain. Cardiovascular: Rhythm is regular. Respiratory: Airway is compromised Trachea midline Respiratory effort is labored, Breath sounds are diminished. GI: Abdomen is non-distended. : No signs and/or symptoms were reported regarding the genitourinary system. EENT: No signs and/or symptoms were reported regarding the EENT system. Derm: Skin is intact, Skin is pink, warm \T\ dry. normal, Skin temperature is warm. Musculoskeletal: No signs and/or symptoms reported regarding the musculoskeletal system. 06:24 Reassessment: Patient appears in no apparent distress at this time. Patient and/or ao family updated on plan of care and expected duration. Pain level reassessed. Waiting on lab results. Vital Signs: 05:24 BP 135 / 39; Pulse 99; Resp 22 S; Temp 98.7; Pulse Ox 83% on R/A; Weight 57.61 kg (R); bb Height 5 ft. 8 in. (172.72 cm) (R); Pain 0/10; 06:24 BP 139 / 61; Pulse 102; Resp 18; Pulse Ox 94% on R/A; Pain 0/10; ao 07:06 BP 126 / 54; Pulse 107; Resp 18; Pulse Ox 95% ; sv 07:45 BP 128 / 62; Pulse 107; Resp 25; Pulse Ox 92% on 2 lpm NC; sv 09:07 BP 118 / 60; Pulse 107; Resp 22; Pulse Ox 95% on 2 lpm NC; sv 05:24 Body Mass Index 19.31 (57.61 kg, 172.72 cm) bb ED Course: 05:16 Patient arrived in ED. ao 05:17 Jeffery Jamil MD is Attending Physician. tw4 05:22 Triage completed. bb 05:24 Arm band placed on Patient placed in an exam room, on a stretcher, on oxygen, on pulse bb oximetry. 05:32 Duque, Beck, RN is Primary Nurse. ao 05:51 X-ray completed. Portable x-ray completed in exam room. Patient tolerated procedure kw well. 05:51 XRAY Chest (1 view) In Process Unspecified. EDMS 05:55 First set of blood cultures drawn by me. Inserted saline lock: 22 gauge in left ao antecubital area, using aseptic technique. Blood collected. 06:02 Patient has correct armband on for positive identification. radiation monitor on. Pulse ao ox on. NIBP on. 06:24 Notified ED physician of a critical lab result(s). D-Dimer of 637. Dr Jamil notified. bb 07:01 Report given to Gela ACEVEDO. ao 07:23 Jeri Tilley MD is Hospitalizing Provider. tw4 07:25 Primary Nurse role handed off by Beck Duque RN sv 07:25 Glory Grayson, CURTIS is Primary Nurse. sv 07:[address] via stretcher. sv 07:37 CT completed. Patient tolerated procedure well. Patient moved to CT via stretcher. Patient moved back from CT. 07:39 CT Chest For PE Angio In Process Unspecified. EDMS 07:42 Patient moved back from CT. sv 09:07 No provider procedures requiring assistance completed. Patient admitted, IV remains in sv place. intact. Administered Medications: 05:20 Drug: DuoNeb (3:1) (2.5 mg - 0.5 mg) 3 ml Route: Nebulizer; ao 06:03 Drug: Zofran 4 mg Route: IVP; Site: right antecubital; ao 07:25 Follow up: Response: No adverse reaction sv 07:24 Drug: SOLU-Medrol 125 mg Route: IVP; Site: left antecubital; sv 08:00 Follow up: Response: No adverse reaction sv Outcome: 07:24 Decision to Hospitalize by Provider. tw4 09:51 Admitted to Med/surg accompanied by tech, via stretcher, room 414, with oxygen, with sv chart, Report called to Zac ACEVEDO 09:51 Condition: stable 09:51 Instructed on the need for admit. 10:13 Patient left the ED. sv Signatures: Dispatcher [employer] EDUT Glory Grayson RN RN sv Jones, Susan sj Ballard, Brenda, RN RN bb Whitley, Kimberlee kw Ortiz, Beck, RN RN Jeffery Vidales MD MD tw4
--- NOTE | 2019-01-16 07:25 | EDPHYS ---
Physician Documentation [facility] Name: Mary Estrada Age: 63 yrs Sex: Female : 1955 Arrival Date: 01/16/2019 Time: 05:16 Bed 6 Private MD: ED Physician Jeffery Jamil HPI: 01/16 05:54 This 63 yrs old Female presents to ER via EMS with complaints of Breathing tw4 Difficulty. 05:54 The patient has shortness of breath at rest. Onset: The symptoms/episode began/occurred tw4 6 hour(s) ago. Duration: The symptoms are continuous. The patient's shortness of breath has no apparent modifying factors. Associated signs and symptoms: The patient has no apparent associated signs or symptoms. Severity of symptoms: At their worst the symptoms were moderate in the emergency department the symptoms are unchanged. Unable to obtain HPI due to. Historical: - Allergies: 05:24 Morphine; bb 05:24 Sulfa (Sulfonamide Antibiotics); bb - Home Meds: 05:24 Sorine 80 mg Oral tab [Active]; Xarelto 20 mg Oral tab [Active]; Advair Diskus Inhl bb [Active]; benzonatate oral oral [Active]; - PMHx: 05:24 COPD; non-hodgkin's lymphoma; bb - PSHx: 05:24 Tonsillectomy; bb - Immunization history:: Adult Immunizations up to date, Pneumococcal vaccine is up to date, Flu vaccine is not up to date. - Social history:: Smoking status: . - Ebola Screening: : No symptoms or risks identified at this time. ROS: 05:54 Constitutional: Negative for fever, chills, and weight loss, Cardiovascular: Negative tw4 for chest pain, palpitations, and edema, Abdomen/GI: Negative for abdominal pain, nausea, vomiting, diarrhea, and constipation, Back: Negative for injury and pain, MS/Extremity: Negative for injury and deformity, Skin: Negative for injury, rash, and discoloration, Neuro: Negative for headache, weakness, numbness, tingling, and seizure. 05:54 Respiratory: Positive for shortness of breath, wheezing, Negative for cough, hemoptysis, orthopnea. Exam: 05:54 Cardiovascular: Regular rate and rhythm with a normal S1 and S2. No gallops, murmurs, tw4 or rubs. Normal PMI, no JVD. No pulse deficits. 05:54 Abdomen/GI: Soft, non-tender, with normal bowel sounds. No distension or tympany. No guarding or rebound. No evidence of tenderness throughout. Back: No spinal tenderness. No costovertebral tenderness. Full range of motion. MS/ Extremity: Pulses equal, no cyanosis. Neurovascular intact. Full, normal range of motion. 05:54 Constitutional: The patient appears in obvious distress, moderately distressed. 05:54 Respiratory: mild respiratory distress is noted, Respirations: labored breathing, accessory muscle usage, Breath sounds: wheezing: Vital Signs: 05:24 BP 135 / 39; Pulse 99; Resp 22 S; Temp 98.7; Pulse Ox 83% on R/A; Weight 57.61 kg (R); bb Height 5 ft. 8 in. (172.72 cm) (R); Pain 0/10; 06:24 BP 139 / 61; Pulse 102; Resp 18; Pulse Ox 94% on R/A; Pain 0/10; ao 07:06 BP 126 / 54; Pulse 107; Resp 18; Pulse Ox 95% ; sv 07:45 BP 128 / 62; Pulse 107; Resp 25; Pulse Ox 92% on 2 lpm NC; sv 09:07 BP 118 / 60; Pulse 107; Resp 22; Pulse Ox 95% on 2 lpm NC; sv 05:24 Body Mass Index 19.31 (57.61 kg, 172.72 cm) bb MDM: 05:17 Patient medically screened. 01/17 07:09 Data reviewed: vital signs, nurses notes. 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 Counseling: I had a detailed discussion with the patient and/or guardian regarding: the historical points, exam findings, and any diagnostic results supporting the discharge/admit diagnosis, lab results, radiology results. 01/16 05:18 Order name: Blood Culture Adult (2) 01/16 05:18 Order name: BMP 01/16 05:18 Order name: CBC with Diff 01/16 05:18 Order name: Ckmb; Complete Time: 07:18 01/16 05:18 Order name: CPK 01/16 05:18 Order name: D-Dimer; Complete Time: 07:15 01/16 07:16 Interpretation: Normal except. tw4 01/16 05:18 Order name: Hepatic Function; Complete Time: 07:16 tw4 01/16 07:16 Interpretation: ALB 2.9; GLOB 4.4; A/G 0.7. tw4 01/16 05:18 Order name: Lipase; Complete Time: 07:18 tw4 01/16 07:18 Interpretation: Normal except: LIP 86. tw4 01/16 05:18 Order name: Magnesium tw4 01/16 05:18 Order name: NT PRO-BNP; Complete Time: 07:17 tw4 01/16 07:17 Interpretation: Normal except: NT PRO-BNP 1028. tw4 01/16 05:18 Order name: PT-INR; Complete Time: 07:17 tw4 01/16 07:17 Interpretation: PT 19.7. 4 01/16 05:18 Order name: Ptt, Activated tw4 01/16 05:18 Order name: Troponin (emerg Dept Use Only) tw4 01/16 06:10 Order name: Manual Differential EDMS 01/16 05:18 Order name: EKG; Complete Time: 05:20 tw4 01/16 05:18 Order name: Cardiac monitoring; Complete Time: 05:31 tw4 01/16 05:18 Order name: EKG - Nurse/Tech; Complete Time: 05:55 tw4 01/16 05:18 Order name: IV Saline Lock; Complete Time: 05:55 tw4 01/16 05:18 Order name: Labs collected and sent; Complete Time: 05:55 4 01/16 05:18 Order name: O2 Per Protocol; Complete Time: 05:55 tw4 01/16 05:18 Order name: O2 Sat Monitoring; Complete Time: 05:55 01/16 05:34 Order name: XRAY Chest (1 view) bb 01/16 07:22 Order name: CT Chest For PE Angio tw4 EC/02 05:54 Rate is 97 beats/min. Rhythm is regular. QRS [place]app[place] is Normal. MO interval is normal. QRS tw4 interval is normal. QT interval is normal. T waves are Inverted in leads aVR, V1. No ST changes noted. Clinical impression: NSR w/ Non-specific ST/T Changes. Interpreted by me. Reviewed by me. Administered Medications: 05:20 Drug: DuoNeb (3:1) (2.5 mg - 0.5 mg) 3 ml Route: Nebulizer; ao 06:03 Drug: Zofran 4 mg Route: IVP; Site: right antecubital; ao 07:25 Follow up: Response: No adverse reaction sv 07:24 Drug: SOLU-Medrol 125 mg Route: IVP; Site: left antecubital; sv 08:00 Follow up: Response: No adverse reaction sv Disposition: 01/16/19 07:24 Hospitalization ordered by Jeri Tilley for Inpatient Admission. Preliminary diagnosis is COPD exacerbation. - Bed requested for Telemetry/MedSurg (observation). - Status is Inpatient Admission. sv - Condition is Fair. - Problem is chronic. - Symptoms are unchanged. UTI on Admission? No Signatures: Dispatcher [employer] EDMS Glory Grayson, RN RN Ernestina Dozier RN RN Opal Alexander, RN Beck Robins RN Jeffery Mason MD MD tw4 Corrections: (The following items were deleted from the chart) 08:55 07:24 Hospitalization Ordered by Jeri Tilley MD for Inpatient Admission. Preliminary dw diagnosis is COPD exacerbation. Bed requested for Telemetry/MedSurg (observation). Status is Inpatient Admission. Condition is Fair. Problem is chronic. Symptoms are unchanged. UTI on Admission? No. tw4 10:13 08:55 01/16/2019 07:24 Hospitalization Ordered by Jeri Tilley MD for Inpatient sv Admission. Preliminary diagnosis is COPD exacerbation. Bed requested for Telemetry/MedSurg (observation). Status is Inpatient Admission. Condition is Fair. Problem is chronic. Symptoms are unchanged. UTI on Admission? No. dw
[2019-01-16] MEDS ORDERED: METHYLPREDNISOLONE 125 MG INJ ONE (07:30)
--- NOTE | 2019-01-16 08:22 | RAD REPORT ---
EXAM DESCRIPTION: CT - Chest For Pe Angio - 01/16/2019 7:40 am CLINICAL HISTORY: Shortness of breath COMPARISON: January 2018 TECHNIQUE: Dynamically enhanced axial 3 mm thick images of the chest were obtained during administra tion of <100> mL Isovue 370 IV contrast. Coronal and oblique reconstruction images were generated and reviewed. Exam utilizes a protocol for optimal evaluation of pulmonary arterial tree. Maximum intensity projections 3D imaging was utilized All CT scans are performed using dose optimization technique as appropriate and may include automated exposure control or mA/KV adjustment according to patient size. FINDINGS: A pulmonary embolus is not seen. A thoracic aortic aneurysm is not noted. A right lower lobe atelectasis. Mild to moderate left lower lobe opacities. Mild tree-in-bud opacitie s within the lungs. Mild mediastinal lymphadenopathy. The bilateral axillary lymphadenopathy has resolved. Minimal right pleural effusion. Thyroid nodules unchanged IMPRESSION: Negative for a pulmonary embolism. Right lower lobe atelectasis. Mild to moderate left lower lobe opacities probably represent pneumonia. Mild tree-in-bud opacities
--- NOTE | 2019-01-16 08:32 | RAD REPORT ---
EXAM DESCRIPTION: [place] Single View01/16/2019 5:53 am CLINICAL HISTORY: COPD COMPARISON: December 20, 2018 FINDINGS: Right lower lobe atelectasis. Mild additional bilateral pulmonary opacities probably represent pneumonia Lungs are hyperaerated Heart is borderline enlarged
[2019-01-16 09:11] LABS: Anisocytosis 1+; Blood Morphology Comment NOTED (NOT SEEN); Platelet Estimate ADEQ
[2019-01-16] MEDS ORDERED: ONDANSETRON 4 MG/2 ML VIAL IV PRN (10:20)
[2019-01-16] MEDS: METHYLPREDNISOLONE 40 MG INJ IV SCH ×2 (10:20→22:12)
[2019-01-16 10:55] LABS: Urine Appearance CLEAR; Urine Bilirubin NEGATIVE (NEG); Urine Blood NEGATIVE (NEG); Urine Color YELLOW; Urine Glucose NEGATIVE (NEG); Urine Protein NEGATIVE (NEG); Urine Specific Gravity >=1.030 (1.005-1.030); Urine pH 6.5 (5.0-7.0)
[2019-01-16 11:04] LABS: Urine Microscopic Reflex NO UMIC
[2019-01-16] MEDS ORDERED: POTASSIUM CL SA 10 MEQ TAB PO ONE (11:04)
[2019-01-16] MEDS: AZITHROMYCIN IV 500 MG in NA CHLORIDE 0.9% 250 ML IVPB SCH (11:19)
[2019-01-16] MEDS: CEFTRIAXONE/SWI 1gm 1 GM/10 ML SYR IV SCH ×2 (11:20→22:12)
[2019-01-16] MEDS: NA CHLORIDE 0.9% 1,000 ML IV SCH (11:20)
[2019-01-16] MEDS: ALBUTEROL 2.5 MG/3 ML NEB SOL NEB SCH ×2 (13:37→20:00)
[2019-01-16] MEDS: IPRATROPIUM BROM 0.5MG/2.5ML NEB SCH ×2 (13:37→20:00)
[2019-01-16] MEDS: RIVAROXABAN 20 MG TABLET PO SCH (16:59)
[2019-01-16] MEDS: SOTALOL HCL 80 MG TAB PO SCH (16:59)
[2019-01-16] MEDS: SALMETEROL IH SCH (21:00)
[2019-01-16] MEDS: FLUTICASONE IH SCH (21:00)
[2019-01-17] MEDS: NA CHLORIDE 0.9% 1,000 ML IV SCH (01:22)
[2019-01-17] MEDS: ALBUTEROL 2.5 MG/3 ML NEB SOL NEB SCH ×4 (02:00→20:00)
[2019-01-17] MEDS: IPRATROPIUM BROM 0.5MG/2.5ML NEB SCH ×4 (02:00→20:00)
--- NOTE | 2019-01-17 02:34 | HP ---
Date of Admission: 01/16/2019 Porcelain Waxer: Dr. Waters with Pulmonology. Chief Complaint: Shortness of breath, cough. Code status: Full History Of Present Illness: The patient is a 63-year-old female with past medical history of COPD, atrial fibrillation on sotalol and rivaroxaban, GERD, and follicular lymphoma stage IV non-Hodgkin's, currently in remission, who is on maintenance chemotherapy monthly. Next chemotherapy due on 01/23/2019, who was recently in the hospital with pneumonia, comes in with shortness of breath, worsening cough, and deteriorating condition. The patient's symptoms are constant, moderate, progressively worsening. The patient does have a bout of 40 -50 tube length tubing for her supplemental oxygenation. When EMS arrived, they put her on a shortened and the patient immediately felt better. In the ER , she was found to be mildly hypoxic and improved with O2 via nasal cannula, currently on 4 L. Her workup revealed normal WBC count. D-dimer was elevated. CT angio was done, which was negative for PE, but did show right lower lobe atelectasis and left lower lobe opacity representing pneumonia. The patient was started on IV antibiotics and referred for admission. When seen in the ER, she was awake, alert, oriented x3, in some mild distress. Past Medical History: COPD; atrial fibrillation, on anticoagulation; GERD; lymphoma stage IV, non-Hodgkin's, currently in remission, on maintenance chemotherapy. Past Surgical History: Tonsillectomy, section, left wrist repair, biopsy for lymphoma. Allergies: TO MORPHINE AND SULFA. Medications: List reviewed. Social History: The patient is , has a daughter. Works at a local [employer]. Family History: Father had heart disease. Mother also had heart disease, hypertension, and diabetes. Brother had cancer as well as a sister who had unknown primary. Habits: The patient denies any tobacco use. Does drink alcohol socially. No illicit drug use. Lives at home, independent in her activities of daily living. Review of Systems: Ten-point system reviewed, negative except as per HPI. Physical Examination: Vital Signs: Temperature 99.8, heart rate 97, blood pressure 122/59, respirations 16, O2 94% on 4 L via nasal cannula. General: Awake, alert, oriented x3. Elderly female, ill appearing, in some mild respiratory distress. HEENT: Normocephalic, atraumatic. PERRLA. EOMI. Moist mucous membranes. Oropharynx is clear. Poor dentition. Conjunctivae are anicteric. Neck: Supple. No JVD. Trachea midline. CV: S1, S2. Regular rate and rhythm. Peripheral pulses present. Respiratory: Diminished breath sounds at the bases. No wheezing or stridor. No use of accessory muscles. Gastrointestinal: Abdomen is soft, nontender, nondistended. Positive bowel sounds. No guarding or rigidity. Extremities: No clubbing, cyanosis, or edema. No calf tenderness. Neuro: Cranial nerves 2-12 intact grossly. No focal neurological deficit. Speech is normal. Laboratory Data: UA is negative. Sodium 141, potassium 3.8, chloride 101, CO2 33, BUN 11, creatinine 0.54, glucose 96, calcium 9.3. BNP 1028. Albumin 2.9. INR 1.7. D-dimer 637. WBC 4.3, H and H 12.5 and 37.9, platelets 341, neutrophils 91%. Imaging Studies: CT angio chest shows no PE, right lower lobe atelectasis, mild -to-moderate left lower lobe opacities representing pneumonia, mild tree-in-bud opacities also present. Chest x-ray shows right lower lobe atelectasis, mild additional bilateral pulmonary opacities, probably represent pneumonia. Lungs hyper aerated. Heart is borderline enlarged. Assessment And Plan: A 63-year-old female with: 1. Acute on chronic respiratory distress. The patient is on 3 L via nasal cannula secondary to COPD, currently on 4 L. Pulmonology has been consulted. We will continue with supplemental oxygen and monitor closely. 2. Pneumonia, left lower lobe. We will continue with IV antibiotics and obtain cultures including blood and sputum. Chest x-ray, personally reviewed. 3. Elevated D-dimer. PE has been ruled out by CT angio. The patient is already on anticoagulation. 4. GERD without esophagitis. We will continue PPI. 5. History of non-Hodgkin's lymphoma, currently in remission on maintenance chemotherapy, stable. 6. GI and DVT prophylaxis. The patient is started on Xarelto. We will admit the patient to Med-Surg, place as observation. LUCIA Voice ID: [id number] [facility]
[2019-01-17] MEDS: SOTALOL HCL 80 MG TAB PO SCH ×2 (06:31→17:08)
[2019-01-17 06:35] LABS: Absolute Lymphocytes (CBC) 0.2 K/uL (0.7-4.9); Absolute Monocytes 0.1 K/uL (0.1-1.3); Absolute Neutrophil 3.1 K/uL (1.8-8.0); Basophils % 0.2 % (0-1.3); Hematocrit 32.4 % (36.0-45.0); Lymphocytes % 6.3 % (15.3-44.8); MPV 7.5 fL (7.6-11.3); Monocytes % 2.7 % (3.3-12.3); RBC Red Blood Cell Count 3.55 M/uL (3.86-4.86)
[2019-01-17 06:58] LABS: BUN Blood Urea Nitrogen 14 mg/dL (7-18); Bicarbonate 31 mmol/L (21-32); Glucose Level 146 mg/dL (74-106); Potassium 4.3 mmol/L (3.5-5.1); Sodium Level 142 mmol/L (136-145)
[2019-01-17] MEDS: AZITHROMYCIN IV 500 MG in NA CHLORIDE 0.9% 250 ML IVPB SCH (08:01)
[2019-01-17] MEDS: CEFTRIAXONE/SWI 1gm 1 GM/10 ML SYR IV SCH (08:02)
[2019-01-17] MEDS: VALACYCLOVIR 500 MG TAB PO SCH (08:02)
[2019-01-17] MEDS: METHYLPREDNISOLONE 40 MG INJ IV SCH ×2 (08:02→20:21)
[2019-01-17] MEDS: SALMETEROL IH SCH ×2 (08:03→20:24)
[2019-01-17] MEDS: FLUTICASONE IH SCH ×2 (08:03→20:24)
--- NOTE | 2019-01-17 08:40 | P.CNS ---
Date of Consult: 01/17/19 Chief Complaint: Shortness of breath and cough History of Present Illness: Patient is 63 years of age with a history of non-Hodgkin's lymphoma admitted with sudden onset of worsening shortness of breath and cough CT scan showed right lower lobe atelectasis some nonspecific changes in the left lower lobe sputum is white to brown patient feels better is on Advair and is fully anti coagulated Allergies morphine Allergy (Verified 12/04/18 15:48) HALLUCINATIONS Sulfa (Sulfonamide Antibiotics) Allergy (Verified 12/04/18 15:48) UNK Home Medications: Valacyclovir [Valtrex*] 500 mg PO DAILY 11/10/18 Rivaroxaban [Xarelto] 20 mg PO DAILY #30 tablet 11/12/18 Sotalol HCl [Betapace*] 80 mg PO BID 6AM 6PM #60 tab 11/12/18 Albuterol Neb [Proventil 0.083% Neb Soln] 2.5 mg IH TID PRN #1 amp 12/06/18 Benzonatate [Tessalon Perle*] 100 mg PO TID PRN #30 cap 12/06/18 Fluticasone/Salmeterol [Advair Hfa 230-21 Mcg Inhaler] 2 puff IH BID 01/16/19 - Past Medical/Surgical History Diabetic: No -: COPD -: Non Hodgkins Lymphoma -: Obesity -: Atrial fibrillation on chronic anti coagulation therapy -: Tonsillectomy -: -: Left wrist repair -: sinus sx Psychosocial/ Personal History: She is . She has 1 child. She works at a local [employer]. - Family History Father Medical History: Heart disease Mother Medical History: Heart disease, Hypertension, Diabetes Brother Medical History: Cancer Sister Medical History: Cancer - Social History Alcohol use: No CD- Drugs: No Caffeine use: Yes Place of Residence: Home Review of Systems 10-point ROS is otherwise unremarkable General: Weakness Respiratory: Cough, Shortness of Breath Physical Examination Temp Pulse Resp BP Pulse Ox 98.3 F 79 16 127/65 93 01/17/19 04:00 01/17/19 04:00 01/17/19 04:00 01/17/19 04:00 01/17/19 04:00 General: Alert, Oriented x3 HEENT: Atraumatic Neck: Supple Respiratory: Expiratory wheezes Cardiovascular: No edema, Regular rate/rhythm, Normal S1 S2 Gastrointestinal: Normal bowel sounds, Soft and benign - Problems (1) COPD exacerbation Current Visit: Yes Status: Acute Plan: Patient is 63 years of age with a history of COPD admitted with worsening dyspnea possible exacerbation she is doing much better patient is never smoked (2) Atelectasis Current Visit: Yes Status: Acute Plan: Patient has progressive right lower lobe atelectasis plan for chest percussion infant is not improved patient may need a bronchoscopy rule out airways obstruction there is no evidence of active ongoing sepsis Dc antibiotics chest percussion cultures pending patient is improving
[2019-01-17] MEDS: CEFUROXIME 250 MG TAB PO SCH ×2 (09:46→20:21)
[2019-01-17] MEDS ORDERED: PNEUMOCOCCAL VACCINE 0.5 ML IMVAC ONE (11:00)
[2019-01-17] MEDS: RIVAROXABAN 20 MG TABLET PO SCH (17:08)
[2019-01-17] MEDS: BENZONATATE 100 MG CAP PO PRN (20:21)
--- NOTE | 2019-01-17 22:21 | PN ---
Date of Progress Note: 01/17/2019 Subjective: The patient seen and examined. Chart reviewed and case discussed with RN and Dr. Ashely granados. The patient states she feels better. Shortness of breath has improved. Medications: List reviewed. Physical Examination: Vital Signs: Temperature 97.8, heart rate 71, blood pressure 133/61, respirations 18, O2 93% on 2 L via nasal cannula. General: Awake, alert, oriented x3. Elderly female, frail, slightly ill appearing. BMI 20. CV: S1, S2. Regular rate and rhythm. Peripheral pulses present. Respiratory: Diminished breath sounds. No wheezing or crackles. Gastrointestinal: Abdomen is soft, nontender, nondistended. Positive bowel sounds. Extremities: No clubbing, cyanosis, or edema. Neuro: Nonfocal. Laboratory Data: Sodium 142, potassium 4.3, chloride 106, CO2 31, BUN 14, creatinine 0.44, glucose 1 46, calcium 8.9. WBC 3.4, H and H 10.7 and 32.4, platelets 266, neutrophils 90%. Assessment And Plan: A 63-year-old female with: 1.Acute chronic obstructive pulmonary disease exacerbation. The patient requiring supplemental oxyg enation. We will continue with nebulizer treatments. Appreciate Dr. Waters's input. Continue chikis roids. Wean as tolerated. 2.Acute on chronic respiratory failure. The patient is O2 dependent, currently on 2 L which is back to her baseline secondary to above. 3.Atelectasis. Dr. Waters has ordered chest percussion therapy and the patient may need bronchosc opy to rule out airway obstruction. The patient does have history of lymphoma. Antibiotics were dis continued by Pulmonology. There are no signs of sepsis. Cultures are pending at this time. 4.History of lymphoma, currently in remission, non-Hodgkin's, on maintenance chemotherapy. 5.Elevated D-dimer. CT angio, ruled out pulmonary embolism. 6.Gastroesophageal reflux disease without esophagitis. Continue PPI. 7.Pneumonia, left lower lobe, felt to be atelectasis by Pulmonology. Antibiotics were discontinued. We will continue to monitor. No signs of sepsis. The patient is afebrile. No elevated white coun t. Plan: Gastrointestinal and deep venous thrombosis prophylaxis addressed. The patient is already on Xarelto. Continue cefuroxime. Switch from IV antibiotics. Likely discharge in the 24 to 48 hours d epending on clinical response. /MODL Voice ID: [id number] Report ID: [id number]
[2019-01-18] MEDS: IPRATROPIUM BROM 0.5MG/2.5ML NEB SCH ×4 (02:00→19:24)
[2019-01-18] MEDS: ALBUTEROL 2.5 MG/3 ML NEB SOL NEB SCH ×4 (02:00→19:24)
[2019-01-18 04:36] LABS: Absolute Lymphocytes (CBC) 0.2 K/uL (0.7-4.9); Absolute Monocytes 0.1 K/uL (0.1-1.3); Absolute Neutrophil 4.1 K/uL (1.8-8.0); Basophils % 0.3 % (0-1.3); Hematocrit 34.4 % (36.0-45.0); Lymphocytes % 3.7 % (15.3-44.8); MPV 7.4 fL (7.6-11.3); Monocytes % 3.3 % (3.3-12.3); RBC Red Blood Cell Count 3.74 M/uL (3.86-4.86)
[2019-01-18 05:02] LABS: BUN Blood Urea Nitrogen 17 mg/dL (7-18); Bicarbonate 32 mmol/L (21-32); Glucose Level 152 mg/dL (74-106); Potassium 4.3 mmol/L (3.5-5.1); Sodium Level 141 mmol/L (136-145)
[2019-01-18 05:21] LABS: Blood Morphology Comment NOT SEEN (NOT SEEN); Platelet Estimate ADEQ
[2019-01-18] MEDS: SOTALOL HCL 80 MG TAB PO SCH ×2 (05:40→17:09)
[2019-01-18] MEDS: METHYLPREDNISOLONE 40 MG INJ IV SCH (08:11)
[2019-01-18] MEDS: CEFUROXIME 250 MG TAB PO SCH ×2 (08:12→20:44)
[2019-01-18] MEDS: VALACYCLOVIR 500 MG TAB PO SCH (08:12)
[2019-01-18] MEDS: FLUTICASONE IH SCH ×2 (08:13→21:00)
[2019-01-18] MEDS: SALMETEROL IH SCH ×2 (08:13→21:00)
--- NOTE | 2019-01-18 08:30 | P.PN ---
Subjective Date of Service: 01/18/19 Chief Complaint: Right-sided atelectasis Subjective: Improving (Patient is doing much better shortness of breath has improved chest x-ray pending) Review of Systems General: Weakness Respiratory: Shortness of Breath Physical Examination - Vital Signs Temperature: 97.7 F Blood Pressure: 146/67 Pulse: 73 Respirations: 16 Pulse Ox (%): 97 - Physical Exam General: Alert, In no apparent distress, Oriented x3 Respiratory: Clear to auscultation bilaterally, Diminished Cardiovascular: No edema, Normal S1 S2 Assessment And Plan - Current Problems (Diagnosis) (1) COPD exacerbation Current Visit: Yes Status: Acute Plan: Doing much better change to p.o. prednisone (2) Atelectasis Current Visit: Yes Status: Acute Plan: Repeat chest x-ray pending if she has persistent atelectasis I have discussed with the patient the plan for bronchoscopy tomorrow morning the possible biopsy discussed this benefits include bleeding infection and lung collapse patient agrees to the procedure indicate currently undergoing chest percussion
--- NOTE | 2019-01-18 09:50 | RAD REPORT ---
EXAM DESCRIPTION: RAD - Chest Pa And Lat (2 Views) - 01/18/2019 9:11 am CLINICAL HISTORY: Right lower lobe atelectasis, fibrosis, possible pneumothorax COMPARISON: CT chest January 16, portable chest January 16 TECHNIQUE: PA views the chest were obtained in both inspiration and expiration. Lateral view also ob tained. FINDINGS: The lungs are fibrotic as a baseline. Patchy left lower lobe opacification has not clearly changed from the prior chest film. Pleural and parenchymal opacification in the lower right lung fie ld remains. Right lower lobe atelectasis is more difficult to appreciate than on CT imaging. This is likely still present. No pneumothorax. No pleural fluid collection. Heart size is normal and central vasculature is within normal limits. No acute bony finding noted. No aortic abnormality. IMPRESSION: No pneumothorax. Chronic pleural and parenchymal opacification not clearly different from comparison.
--- NOTE | 2019-01-18 20:25 | PN ---
Date of Progress Note: 01/18/2019 History: The patient is seen and examined. Chart reviewed and case discussed with RN and Dr. Waters. The patient states her breathing has improved. Still on supplemental oxygen. Medications: List reviewed. Physical Examination: Vital Signs: Temperature 97.9, heart rate 78, blood pressure 133/72, respirations 16, O2 92% on 2 L via nasal cannula. General: Awake, alert, oriented x3. Some mild respiratory distress. Elderly female, ill appearing. CV: S1, S2. Regular rate and rhythm. Peripheral pulses present. Respiratory: Diminished breath sounds at the bases. Gastrointestinal: Abdomen is soft, nontender, nondistended. Positive bowel sounds. Extremities: No clubbing, cyanosis, or edema. Neurologic: Nonfocal. Laboratory Data: Sodium 141, potassium 4.3, chloride 105, CO2 32, BUN 17, creatinine 0.44, glucose 152, calcium 8.9. WBC 4.4, H and H 11.3 and 34.4, platelets 307, neutrophils 92%. Blood cultures, no growth to date. Sputum culture growing out 2+ gram-negative rods. Urine culture shows mixed maryann. Assessment And Plan: A 63-year-old female with: 1. Acute chronic obstructive pulmonary disease exacerbation, improving. The patient is still on supplemental oxygen. We will continue steroids and nebulizer treatments. The patient being seen by Dr. Waters. 2. Acute on chronic respiratory failure with hypoxia. The patient is O2 dependent. The patient's chest x-ray does show some atelectasis, chronic pleural and parenchymal opacification, not clearly different from comparison. The patient is scheduled for bronchoscopy in a.m. to rule out postobstructive pneumonia versus possible malignancy. 3. Atelectasis in right lower lobe continue incentive spirometry and percussion therapy to break up mucous. 4. History of lymphoma, currently in remission non-Hodgkin's, on maintenance chemotherapy. 5. Left lower lobe pneumonia, on Ceftin. The patient's sputum culture growing out gram-negative rods. We will monitor ID and sensitivity. 6. GI and DVT prophylaxis addressed. We will hold the patient's anticoagulant in anticipation of bronchoscopy in a.m. /MIGUEL A Voice ID: [id number] Report ID: [id number] [facility]
[2019-01-18] MEDS: BENZONATATE 100 MG CAP PO PRN (20:44)
[2019-01-18] MEDS: predniSONE 20 MG TAB PO SCH (20:45)
[2019-01-19] MEDS: ALBUTEROL 2.5 MG/3 ML NEB SOL NEB SCH ×4 (01:34→19:27)
[2019-01-19] MEDS: IPRATROPIUM BROM 0.5MG/2.5ML NEB SCH ×4 (01:34→19:27)
[2019-01-19] MEDS: SOTALOL HCL 80 MG TAB PO SCH ×2 (05:42→17:53)
[2019-01-19] MEDS: VALACYCLOVIR 500 MG TAB PO SCH (08:24)
[2019-01-19] MEDS: CEFUROXIME 250 MG TAB PO SCH (08:24)
[2019-01-19] MEDS: predniSONE 20 MG TAB PO SCH ×2 (08:24→21:25)
[2019-01-19] MEDS: SALMETEROL IH SCH ×2 (08:24→21:00)
[2019-01-19] MEDS: FLUTICASONE IH SCH ×2 (08:24→21:00)
[2019-01-19] MEDS ORDERED: LIDOCAINE VISCOUS 2% SOLN 15 ML UDC ONE (11:19)
[2019-01-19] MEDS ORDERED: GLYCOPYRROLATE 0.2 MG/ML SYR ONE (11:19)
[2019-01-19] MEDS ORDERED: LIDOCAINE 1% MPF 30 ML VIAL ONE (11:19)
[2019-01-19] MEDS ORDERED: LIDOCAINE 4% TOP SOLUTION ONE (11:19)
[2019-01-19] MEDS ORDERED: Ringers Lactate 1,000 ML IV ONE (12:39)
[2019-01-19] MEDS: Phenylephrine HCl 10 MG/ML 1 ML VIAL ONE ×2 (12:42→12:56)
[2019-01-19] MEDS ORDERED: PROPOFOL 200 MG/20 ML VIAL IV ONE (13:10)
--- NOTE | 2019-01-19 13:19 | P.PN ---
Subjective Date of Service: 01/19/19 Chief Complaint: Right-sided atelectasis Subjective: Improving (Patient's condition is stable bronchoscopy no obvious obstruction) Review of Systems General: Weakness Respiratory: Cough, Shortness of Breath Physical Examination - Vital Signs Temperature: 98.2 F Blood Pressure: 107/63 Pulse: 78 Respirations: 22 Pulse Ox (%): 90 - Physical Exam General: Alert, Oriented x3 Neck: Supple Respiratory: Expiratory wheezes Cardiovascular: No edema, Regular rate/rhythm - Studies Microbiology Data (last 24 hrs): 01/17/19 10:31 Sputum Gram Stain - Final 01/17/19 10:31 Sputum Culture & Sensitivity - Final Pseudomonas Aeruginosa Serratia Marcescens 01/16/19 10:10 Clean Catch Urine Webster Count - Final BETWEEN 10,000 & 100,000 CFU/ML 01/16/19 10:10 Clean Catch Urine - Final Assessment & Plan - Problems (Diagnosis) (1) COPD exacerbation Current Visit: Yes Status: Acute Plan: Continue with present medication patient was scheduled for a bronchoscopy in addition sputum is positive for Pseudomonas and Serratia which is only sensitive to meropenem I suggest treatment with IV for least 2 weeks (2) Atelectasis Current Visit: Yes Status: Acute Plan: Schedule for a bronchoscopy patient is on Xarelto will avoid any biopsies
--- NOTE | 2019-01-19 13:22 | P.OP ---
Date of Service: 01/19/19 (Bronchoscopy) Findings and Operative Technique Patient is 63 years of age admitted and evaluated by me for right-sided atelectasis bronchoscopy was done to rule out obstruction patient wire have the procedure done as more convenient for her as an inpatient although she was taking Xarelto an and informed her that no biopsies to be done although the suspicion was very low for a mass Narrative report after obtaining informed consent from the patient she was premedicated by anesthesia finding normal vocal cords normal trachea normal jessica she has significant thick mucus through the entire respiratory tract was suctioned successfully there was no obvious obstruction in the main airways was no significant bleeding no biopsies the specimens were sent patient tolerated the procedure well
[2019-01-19] MEDS ORDERED: EPINEPHRINE/PF 1 MG/ML AMP ONE (16:38)
[2019-01-19] MEDS ORDERED: Meropenem 500 MG VIAL IV SCH (17:00)
[2019-01-19] MEDS: Meropenem 500 MG in NA CHLORIDE 0.9% 100 ML IV SCH (17:53)
[2019-01-19] MEDS: RIVAROXABAN 20 MG TABLET PO SCH (17:53)
--- NOTE | 2019-01-19 20:54 | PN ---
Date of Progress Note: 01/19/2019 Subjective: The patient seen and examined. Chart reviewed and case discussed with RN and Dr. Ashely granados. The patient did well after bronchoscopy, found to have thick secretions in mucus, however, no ma ss seen. No biopsies were taken as the patient was on Xarelto. Medications: List reviewed. Physical Examination: Vital Signs: Temperature 98.4, heart rate 85, blood pressure 110/63, respirations 20, and O2 94% on 4 L via nasal cannula. General: Awake, alert, oriented x3. Elderly female, in mild respiratory distress, ill-appearing. CV: S1 and S2. Regular rate and rhythm. Peripheral pulses present. Respiratory: Diminished breath sounds at the bases. No wheezing or stridor. Gastrointestinal: Abdomen is soft, nontender, nondistended. Positive bowel sounds. Extremities: No clubbing, cyanosis, or edema. Neurologic: Nonfocal. Laboratory Data: Pending. Blood cultures, no growth to date. Sputum cultures growing out Pseudomon as aeruginosa and Serratia marcescens, multiple drug-resistant, sensitive to meropenem. Assessment And Plan: A 63-year-old female with: 1.Acute chronic obstructive pulmonary disease exacerbation, improving. We will continue nebulizer t reatments and wean off steroids. Appreciate Dr. Waters's input. 2.Left lower lobe pneumonia secondary to Pseudomonas and Serratia. We will change antibiotics to me ropenem. Pulmonology recommends 2 weeks of IV meropenem. The patient is now status post bronchoscop y. We will obtain PICC line and refer to LTAC versus SNF. 3.Jbysn-[id number] respiratory failure with hypoxia. The patient still on 4-5 L of O2 secondary to above. 4.Atelectasis. Continue incentive spirometry. 5.History of lymphoma, currently in remission non-Hodgkin's, on maintenance chemotherapy. 6.Gastrointestinal and deep venous thrombosis prophylaxis. We will resume anticoagulation 24 hours post surgery. Plan: Obtain PICC line for long-term IV antibiotics. /MIGUEL A Voice ID: [id number] Report ID: [id number]
[2019-01-20] MEDS: Meropenem 500 MG in NA CHLORIDE 0.9% 100 ML IV SCH ×3 (01:00→16:10)
[2019-01-20] MEDS: IPRATROPIUM BROM 0.5MG/2.5ML NEB SCH ×4 (01:21→19:55)
[2019-01-20] MEDS: ALBUTEROL 2.5 MG/3 ML NEB SOL NEB SCH ×2 (01:21→08:53)
[2019-01-20] MEDS: SOTALOL HCL 80 MG TAB PO SCH ×2 (06:26→17:23)
[2019-01-20] MEDS: SALMETEROL IH SCH (09:00)
[2019-01-20] MEDS: FLUTICASONE IH SCH (09:00)
[2019-01-20] MEDS: VALACYCLOVIR 500 MG TAB PO SCH (09:07)
[2019-01-20] MEDS: predniSONE 20 MG TAB PO SCH (09:07)
[2019-01-20] MEDS ORDERED: ALBUTEROL 2.5 MG/3 ML NEB SOL NEB PRN (09:41)
--- NOTE | 2019-01-20 09:43 | P.PN ---
Subjective Date of Service: 01/20/19 Chief Complaint: Pseudomonas lung infection Subjective: Improving (Patient is doing better in the sputum cultures are positive) Review of Systems General: Weakness Respiratory: Cough, Shortness of Breath Physical Examination - Vital Signs Temperature: 97.5 F Blood Pressure: 117/56 Pulse: 64 Respirations: 16 Pulse Ox (%): 92 - Physical Exam General: Alert, Oriented x3 Neck: Supple Respiratory: Diminished, Expiratory wheezes Cardiovascular: No edema, Normal S1 S2 - Studies Microbiology Data (last 24 hrs): 01/17/19 10:31 Sputum Gram Stain - Final 01/17/19 10:31 Sputum Culture & Sensitivity - Final Pseudomonas Aeruginosa Serratia Marcescens Assessment & Plan - Problems (Diagnosis) (1) COPD exacerbation Current Visit: Yes Status: Acute Plan: Continue with bronchodilator therapy reduce prednisone use albuterol p.r.n. continue with ipratropium patient is hypoxic (2) Atelectasis Current Visit: Yes Status: Acute Plan: Bronchoscopy done no evidence of any obstruction most likely she has atelectasis from thick mucus (3) Pseudomonas aeruginosa infection Current Visit: Yes Status: Acute Plan: Patient will need 2 weeks of IV antibiotic therapy with meropenem at home using a PICC line also has Citrobacter infection Pseudomonas is very resistant
--- NOTE | 2019-01-20 14:14 | RAD REPORT ---
EXAM DESCRIPTION: RAD - Chest Pa And Lat (2 Views) - 01/20/2019 1:38 pm CLINICAL HISTORY: Atelectasis, shortness of breath COMPARISON: January 18 TECHNIQUE: PA and lateral views of the chest were obtained. FINDINGS: The lungs are fibrotic as a baseline. Increased interstitial and patchy alveolar opacities have developed in the posterior right lung base. This appears to be in addition to the medial right lung base atelectasis. Heart size is normal and central vasculature is within normal limits. No pne umothorax. No acute bony finding noted. No aortic abnormality. IMPRESSION: New posterior right lung base interstitial and patchy alveolar opacification. Medial ri ght lung base atelectasis does not appear significantly different.
--- NOTE | 2019-01-20 15:45 | PN ---
Date of Progress Note: 01/20/2019 History: The patient seen and examined. Chart reviewed and case discussed with RN. The patient did well post bronchoscopy. States her breathing is better. Still having some cough, but no significant sputum production. Medications: List reviewed. Physical Examination: Vital Signs: Temperature 98.4, heart rate 80, blood pressure 113/59, respirations 16, O2 98% on 2 L via nasal cannula. General: Awake, alert, oriented x3, not in any acute distress, elderly female. CV: S1, S2. Regular rate and rhythm. Peripheral pulses present. Respiratory: Diminished breath sounds, especially at the bases, minimal wheezing. Gastrointestinal: Abdomen is soft, nontender, nondistended. Positive bowel sounds. Extremities: No clubbing, cyanosis, or edema. Neurologic: Nonfocal. Laboratory Data: Pending. Chest x-ray shows new posterior right lung base interstitial and patchy alveolar opacification. Medial right lung base atelectasis does not appear significantly different. Assessment And Plan: A 63-year-old female with: 1. Acute on chronic obstructive pulmonary disease exacerbation, improving, now on p.o. steroids. Continue nebulizer treatments. Dr. Waters on board. 2. Bilateral lower lobe pneumonia, secondary to Pseudomonas and Serratia. The patient on meropenem, will need 2 weeks of IV meropenem. Social Work consulted to work on IV antibiotics. The patient declined LTAC placement. We will see if the patient is able to have infusion company do some teaching to daughter and provide antibiotics. 3. Acute on chronic respiratory failure with hypoxia, currently on 2 L via nasal cannula. Chest x-ray shows new posterior right lung base opacification, on bronchoscopy was found to have moderate atelectasis due to thick mucus. We will continue incentive spirometry. 4. Atelectasis. Continue incentive spirometry, status post bronch. 5. History of lymphoma, non-Hodgkin's, currently in remission. We will continue maintenance chemotherapy as outpatient. 6. Gastrointestinal and deep vein thrombosis prophylaxes. The patient is back on her anticoagulation with Xarelto. Plan: Discontinue once IV antibiotics have been set up. /MODL Voice ID: [id number] Report ID: [id number] [facility]
[2019-01-20] MEDS: RIVAROXABAN 20 MG TABLET PO SCH (16:10)
[2019-01-20] MEDS: predniSONE 10 MG TAB PO SCH (20:45)
[2019-01-21] MEDS: Meropenem 500 MG in NA CHLORIDE 0.9% 100 ML IV SCH ×3 (00:22→16:31)
[2019-01-21] MEDS: IPRATROPIUM BROM 0.5MG/2.5ML NEB SCH ×4 (02:00→19:34)
[2019-01-21] MEDS: SOTALOL HCL 80 MG TAB PO SCH ×2 (05:07→16:31)
[2019-01-21] MEDS: predniSONE 10 MG TAB PO SCH ×2 (08:56→20:56)
[2019-01-21] MEDS: VALACYCLOVIR 500 MG TAB PO SCH (08:56)
--- NOTE | 2019-01-21 14:59 | PN ---
Date of Progress Note: 01/21/2019 Subjective: The patient seen and examined. Chart reviewed and case discussed with RN. The patient is doing well and does not have any significant shortness of breath. Still on supplemental oxygen at same amount at home. Medications: List reviewed. Physical Examination: Vital Signs: Temperature 97.4, heart rate 62, blood pressure 100/49, respirations 20, and O2 92% at 2 L on nasal cannula. General: Awake, alert and oriented x3, not in any acute distress, frail, cachectic female. BMI 20. CV: S1, S2. Regular rate and rhythm. Peripheral pulses present. Respiratory: Moving air well bilaterally. Some diminished breath sounds at the bases. No crackles or wheezing. Gastrointestinal: Abdomen is soft, nontender, nondistended. Positive bowel sounds. No guarding or rigidity. Extremities: No clubbing, cyanosis, or edema. Neurologic: Nonfocal. Laboratory Data: Labs pending. Sputum culture growing out Pseudomonas Serratia. Blood cultures neg ative. Final chest x-ray pending. Assessment And Plan: A 63-year-old female with: 1.Acute chronic obstructive pulmonary disease exacerbation, improving, currently on p.o. steroids. We will continue nebulizer treatments. Appreciate Dr. Waters's input. 2.Bilateral lower lobe pneumonia secondary to Pseudomonas Serratia. Continue meropenem. We will ne ed IV meropenem for a total of 2 weeks. The patient is pending IV antibiotic set up. 3.Acute on chronic respiratory failure with hypoxia, currently on 2 L via nasal cannula. 4.Atelectasis. Continue incentive spirometry. 5.History of non-Hodgkin's lymphoma, currently in remission on maintenance chemotherapy. 6.Deep venous thrombosis prophylaxis with Xarelto. Plan: The patient is doing well status post bronchoscopy. Continue percussion therapy to break up t hick mucus found on bronchoscopy. No biopsies were taken. Discharge once IV antibiotics set up. SA/MODL Voice ID: [id number] Report ID: [id number]
[2019-01-21] MEDS: RIVAROXABAN 20 MG TABLET PO SCH (16:31)
[2019-01-22] MEDS: Meropenem 500 MG in NA CHLORIDE 0.9% 100 ML IV SCH ×3 (00:47→16:41)
[2019-01-22] MEDS: IPRATROPIUM BROM 0.5MG/2.5ML NEB SCH ×3 (01:19→14:44)
[2019-01-22] MEDS: SOTALOL HCL 80 MG TAB PO SCH ×2 (05:09→16:50)
[2019-01-22 05:32] LABS: Absolute Lymphocytes (CBC) 0.4 K/uL (0.7-4.9); Absolute Monocytes 0.2 K/uL (0.1-1.3); Absolute Neutrophil 3.8 K/uL (1.8-8.0); Basophils % 0.1 % (0-1.3); Eosinophils % 0.3 % (0-4.4); Hematocrit 37.3 % (36.0-45.0); Lymphocytes % 9.7 % (15.3-44.8); MPV 7.4 fL (7.6-11.3); Monocytes % 3.4 % (3.3-12.3); RBC Red Blood Cell Count 4.06 M/uL (3.86-4.86)
[2019-01-22 05:50] LABS: ALT/SGPT 80 U/L (12-78); AST/SGOT 62 U/L (15-37); Albumin 2.7 g/dL (3.4-5.0); Alkaline Phosphatase 83 U/L (45-117); BUN Blood Urea Nitrogen 15 mg/dL (7-18); Bicarbonate 32 mmol/L (21-32); Bilirubin Total 0.3 mg/dL (0.2-1.0); Glucose Level 129 mg/dL (74-106); Potassium 4.4 mmol/L (3.5-5.1); Protein, Total 6.1 g/dL (6.4-8.2); Sodium Level 140 mmol/L (136-145)
[2019-01-22 07:31] LABS: Blood Morphology Comment NOT SEEN (NOT SEEN); Platelet Estimate ADEQ; Toxic Granulation 1+; Urine White Blood Cell Casts OK
[2019-01-22] MEDS: VALACYCLOVIR 500 MG TAB PO SCH (08:26)
[2019-01-22] MEDS: predniSONE 10 MG TAB PO SCH (08:26)
--- NOTE | 2019-01-22 11:40 | P.PN ---
Subjective Date of Service: 01/22/19 Chief Complaint: Pseudomonas lung infection Subjective: Improving (Patient is doing much better. Her cough is improved now has a PICC line) Review of Systems General: Weakness Respiratory: Cough, Shortness of Breath Physical Examination - Vital Signs Temperature: 97.2 F Blood Pressure: 114/53 Pulse: 68 Respirations: 18 Pulse Ox (%): 95 - Physical Exam General: Alert, Oriented x3 HEENT: Atraumatic Neck: Supple Respiratory: Clear to auscultation bilaterally Cardiovascular: No edema Assessment & Plan - Problems (Diagnosis) (1) COPD exacerbation Current Visit: Yes Status: Acute Plan: No change in bronchodilator therapy (2) Atelectasis Current Visit: Yes Status: Acute Plan: Bronchoscopy done no evidence of any obstruction most likely she has atelectasis from thick mucus. Repeat chest x-ray results pending no obvious atelectasis (3) Pseudomonas aeruginosa infection Current Visit: Yes Status: Acute Plan: Patient will need 2 weeks of IV antibiotic therapy with meropenem at home using a PICC line also has Citrobacter infection Pseudomonas is very resistant 1 g IV twice a day should be adequate therapy
--- NOTE | 2019-01-22 12:13 | RAD REPORT ---
EXAM DESCRIPTION: Chest Single View CLINICAL HISTORY: 3 years Female, S/P PICC insertion COMPARISON: None FINDINGS: Placement of right upper extremity PICC terminating in the distal SVC. Enlarged cardiac silhouette with mild interstitial edema and small right pleural effusion/atelectasis . No pneumothorax. No acute osseous abnormality. IMPRESSION: Appropriately placed right upper extremity PICC. Cardiomegaly, interstitial edema and small right pleural effusion. Electronically signed by: Levon Torres DO 01/21/2019 2:16 AM CDT Due to temporary technical issues with the PACS/Fluency reporting system, reports are being signed by the in house radiologist as a courtesy to ensure prompt reporting. The interpreting radiologist is f ully responsible for the content of the report.
[2019-01-22] MEDS: RIVAROXABAN 20 MG TABLET PO SCH (16:41)
[2019-01-22 16:47] VITALS: BP 114/56; TEMP 98.6
--- NOTE | 2019-01-22 17:48 | PN ---
NO DICTATION /MIGUEL A Voice ID: [id number] Report ID: [id number]
[2019-01-22 20:13] VITALS: O2SAT 94
--- NOTE | 2019-01-23 03:40 | DS ---
Date of Discharge: 01/22/2019 Consultants: Dr. Waters with Pulmonology. Procedures: Bronchoscopy on 01/19/2019. No significant findings. Admitting Diagnoses: 1.Acute on chronic respiratory distress. 2.Pneumonia, left lower lobe. 3.Elevated D-dimer. 4.GERD without esophagitis. 5.History of non-Hodgkin's lymphoma in remission. Discharge Diagnoses: 1.Acute respiratory distress secondary to COPD and atelectasis, improving, status post bronchoscopy. 2.Bilateral lower lobe pneumonia secondary to Pseudomonas and Serratia, on meropenem for a total of 2 weeks. 3.Acute on chronic respiratory failure with hypoxia. 4.Atelectasis. 5.History of non-Hodgkin's lymphoma, currently in remission. Hospital Course: The patient is a 63-year-old female, who has had multiple recurrent admissions for similar issues, comes in again with shortness of breath and cough. The patient was found to have pne umonia, was started on IV antibiotics. Cultures were also obtained. Her blood cultures remained neg ative; however, sputum culture grew out Pseudomonas and Serratia, which were sensitive to meropenem. The patient responded well to treatment. Her white blood cell count remained stable. Her D-dimer w as also elevated on admission. CT scan of the chest was done to rule out PE, which was negative, did show right lower lobe atelectasis and [id number] left lower lobe opacities representing pneumo elbert with mild tree-in-bud opacities. The patient was seen by Dr. Waters with Pulmonology. She was started on nebulizer treatments and steroids. She was taken for bronchoscopy due to her recurrent e pisodes and possibility of malignancy due to her history of non-Hodgkin's lymphoma; however, no mass was seen. She was found to have thick mucus. No biopsies were taken as the patient is on rivaroxaba n. The patient did well post bronchoscopy. She was placed on percussion therapy, which helped break up the mucus. The patient's breathing improved. She was back to her baseline in terms of supplemen alicia oxygen requirements. She was able to ambulate without difficulty. The patient was then cleared for discharge on meropenem for a total of 2 weeks, which is to be set up through [facility] h[facility] and EMT friend will assist with infusions for total of 2 weeks. Followup: The patient is to follow up with primary care physician in 2-3 days. Follow up with pulmo nologist, Dr. Waters, in 2 weeks. Return to ER for worsening condition. Physical Examination: General: Awake, alert, oriented x3, not in any acute distress, elderly female. CV: S1, S2. Peripheral pulses present. Respiratory: Diminished breath sounds at the bases. No wheezing. Gastrointestinal: Abdomen is soft, nontender, nondistended. Positive bowel sounds. Extremities: No clubbing, cyanosis, or edema. Neurologic: Nonfocal. Total time spent discharging the patient was 37 minutes. /MIGUEL A Voice ID: [id number] Report ID: [id number]
--- NOTE | 2019-01-23 11:06 | EKG ---
Test Date: 2019-01-16 Test Time: 05:51:16 Biologist Aide: PAVAN MEASUREMENT RESULTS: Intervals: Rate: 97 TX: 136 QRSD: 106 QT: 362 QTc: 459 [place]: P: 77 TX: 136 QRS: 78 T: 77 INTERPRETIVE STATEMENTS: Normal sinus rhythm Incomplete right bundle branch block Borderline ECG Compared to ECG 12/04/2018 10:44:45 No significant changes Electronically Signed On 01-16-19 09:02:21 CDT by Neri Burch
== END 2019-01-22 19:08 | disposition home health service (06) | DRG 166 ==
LOC: ER 05:14 → ERHOLD 08:25 → 4TH 09:52 → OBSVTOIN 01-17 13:32
PROVIDERS: ADMIT Family Medicine; ATTEND Family Medicine
PROC: 0WCQ8ZZ Extirpation of Matter from Respiratory Tract, Via Natural or Artificial Opening Endoscopic (ICD-10-PCS; principal; 2019-01-19 12:00)
PROC: 02HV33Z Insertion of Infusion Device into Superior Vena Cava, Percutaneous Approach (ICD-10-PCS; 2019-01-20)
PROC: B548ZZA Ultrasonography of Superior Vena Cava, Guidance (ICD-10-PCS; 2019-01-20)
DX: J44.1 Chronic obstructive pulmonary disease with (acute) exacerbation (principal); J15.1 Pneumonia due to Pseudomonas; J15.6 Pneumonia due to other Gram-negative bacteria; J96.21 Acute and chronic respiratory failure with hypoxia; J98.11 Atelectasis; C82.80 Other types of follicular lymphoma, unspecified site; J44.0 Chronic obstructive pulmonary disease with (acute) lower respiratory infection; Z85.71 Personal history of Hodgkin lymphoma; Z88.5 Allergy status to narcotic agent; Z88.2 Allergy status to sulfonamides; I48.91 Unspecified atrial fibrillation; Z79.01 Long term (current) use of anticoagulants; K21.9 Gastro-esophageal reflux disease without esophagitis; Z16.24 Resistance to multiple antibiotics; Z99.81 Dependence on supplemental oxygen
CPT/HCPCS: 36415; 71045; 71046; 71275; 80048; 80053; 80076; 81003; 82550; 82553; 83690; 83735; 83880; 84484; 85025; 85379; 85610; 85730; 87040; 87070; 87077; 87086; 87088; 87186; 87205; 93005; 94640; 94667; 94668; 96374; 96375; 99285; G0378; J0171; J0456; J0696; J2370; J2405; J2704; J2920; J2930; J7030; J7512; Q9967

== ENCOUNTER 2019-03-13 11:34 | Emergency (ER) | payer OTHER ==
[2019-03-13 12:18] LABS: Absolute Lymphocytes (CBC) 0.4 K/uL (0.7-4.9); Absolute Monocytes 0.4 K/uL (0.1-1.3); Absolute Neutrophil 2.6 K/uL (1.8-8.0); Eosinophils % 1.7 % (0-4.4); Hematocrit 33.2 % (36.0-45.0); Monocytes % 12.4 % (3.3-12.3); RBC Red Blood Cell Count 3.61 M/uL (3.86-4.86)
[2019-03-13 12:23] LABS: Protime INR 3.22
--- NOTE | 2019-03-13 12:29 | RAD REPORT ---
EXAM DESCRIPTION: RAD - Chest Single View - 03/13/2019 12:19 pm CLINICAL HISTORY: SOB Chest pain. COMPARISON: Chest Single View dated 01/21/2019; Chest Pa And Lat (2 Views) dated 01/20/2019; Chest Pa An d Lat (2 Views) dated 01/18/2019; Chest Single View dated 01/16/2019 FINDINGS: Portable technique limits examination quality. Emphysematous changes are present with linear subsegmental atelectasis in the right base and a trace right pleural effusion. The heart is moderately prominent size. No displaced fractures.
[2019-03-13 12:33] LABS: ALT/SGPT 18 U/L (12-78); AST/SGOT 19 U/L (15-37); Albumin 2.8 g/dL (3.4-5.0); Alkaline Phosphatase 80 U/L (45-117); BUN Blood Urea Nitrogen 10 mg/dL (7-18); Bicarbonate 27 mmol/L (21-32); Bilirubin Direct 0.2 mg/dL (0-0.2); Bilirubin Total 0.7 mg/dL (0.2-1.0); Glucose Level 88 mg/dL (74-106); Magnesium 2.1 mg/dL (1.8-2.4); Potassium 4.1 mmol/L (3.5-5.1); Protein, Total 6.5 g/dL (6.4-8.2); Sodium Level 139 mmol/L (136-145); Troponin (Emerg Dept Use Only) < 0.02 ng/mL (0.0-0.045)
--- NOTE | 2019-03-13 12:38 | EKG ---
Test Date: 2019-03-13 Test Time: 11:43:54 Partnership Marketing Manager: NICHOLAS MEASUREMENT RESULTS: Intervals: Rate: 72 TX: 134 QRSD: 110 QT: 404 QTc: 442 [place]: P: 82 TX: 134 QRS: 73 T: 75 INTERPRETIVE STATEMENTS: Normal sinus rhythm Incomplete right bundle branch block Borderline ECG Compared to ECG 01/16/2019 05:51:16 No significant changes Electronically Signed On 03-13-19 12:38:07 CDT by Thad Bird
[2019-03-13 13:22] LABS: Blood Morphology Comment NOT SEEN (NOT SEEN); Platelet Estimate ADEQ
[2019-03-13] MEDS ORDERED: NA CHLORIDE 0.9% 500 ML ONE ×2 (13:25→14:49)
[2019-03-13] MEDS ORDERED: predniSONE 20 MG TAB ONE (13:25)
[2019-03-13] MEDS ORDERED: ALBUTEROL 2.5 MG/3 ML NEB SOL ONE (13:25)
[2019-03-13] MEDS ORDERED: CEFTRIAXONE/SWI 1gm 1 GM/10 ML SYR ONE (14:01)
--- NOTE | 2019-03-13 15:42 | ER ---
Nurse's Notes [facility] Name: Mary Estrada Age: 63 yrs Sex: Female : 1955 Arrival Date: 03/13/2019 Time: 11:38 Bed 26 Private MD: Diagnosis: Chronic obstructive pulmonary disease with (acute) exacerbation Presentation: 03/13 11:44 Presenting complaint: EMS states: Shortness of breath and cough for 2-3 days, reports sg having worsening shortness of breath with activity, denies N/V/D/Fever at this time. Transition of care: patient was not received from another setting of care. Onset of symptoms was March 13, 2019. Risk Assessment: Do you want to hurt yourself or someone else? Patient reports no desire to harm self or others. Initial Sepsis Screen: Does the patient meet any 2 criteria? No. Patient's initial sepsis screen is negative. Does the patient have a suspected source of infection? No. Patient's initial sepsis screen is negative. Care prior to arrival: Medication(s) given: Albuterol Neb Atrovent Neb Oxygen administered. via a nebulizer mask. 11:44 Method Of Arrival: EMS: [email or web address] 11:44 Acuity: SIMEON 3 sg Historical: - Allergies: 11:46 Morphine; sg 11:46 Sulfa (Sulfonamide Antibiotics); sg - Home Meds: 11:50 benzonatate 100 mg oral cap 1 cap [Active]; Xarelto 20 mg Oral tab 1 tab once daily sg [Active]; Sorine 80 mg Oral tab 1 tab [Active]; valacyclovir 500 mg Oral tab 1 tab once daily [Active]; - PMHx: 11:46 COPD; non-hodgkin's lymphoma; sg - PSHx: 11:46 Tonsillectomy; sg - Immunization history:: Adult Immunizations up to date. - Social history:: Smoking status: Patient/guardian denies using tobacco. - Ebola Screening: : Patient negative for fever greater than or equal to 101.5 degrees Fahrenheit, and additional compatible Ebola Virus Disease symptoms Patient denies exposure to infectious person Patient denies travel to an Ebola-affected area in the 21 days before illness onset No symptoms or risks identified at this time. Screenin:40 Abuse screen: Denies threats or abuse. Denies injuries from another. Nutritional sg screening: No deficits noted. Tuberculosis screening: No symptoms or risk factors identified. Never had TB. Fall Risk None identified. Assessment: 11:40 General: Appears in no apparent distress. slender, well groomed, well developed, well sg nourished, Behavior is calm, cooperative, appropriate for age. Pain: Denies pain. Neuro: Level of Consciousness is awake, alert, obeys commands, Oriented to person, place, time, Barbed Wire Machine Operator are equal bilaterally Moves all extremities. Full function Facial symmetry appears normal. Cardiovascular: Denies chest pain, diaphoresis, nausea, palpitations, syncope, vomiting, Heart tones S1 S2 Capillary refill is brisk in bilateral fingers Patient's skin is warm and dry. Chest pain is denied. Respiratory: Reports cough that is non-productive, hacking, persistent since 1-2 months Airway is patent Respiratory effort is even, unlabored, Respiratory pattern is regular, symmetrical, Breath sounds are clear the patient has mild shortness of breath. GI: No signs and/or symptoms were reported involving the gastrointestinal system. : No signs and/or symptoms were reported regarding the genitourinary system. EENT: No signs and/or symptoms were reported regarding the EENT system. Derm: Skin is pink, warm \T\ dry. Musculoskeletal: Circulation, motion, and sensation intact. Range of motion: intact in all extremities. 13:51 Reassessment: Patient appears in no apparent distress at this time. Patient and/or sg family updated on plan of care and expected duration. Pain level reassessed. pt family at bedside, requesting to speak with the THRILL PERFORMER Carmine at this time, Carmine notified, IV fluids continue to infuse at this time. Vital Signs: 11:39 BP 99 / 57; Pulse 71; Resp 16; Temp 98.8(A); Pulse Ox 100% ; lt1 12:30 BP 89 / 42; Pulse 77; Resp 17; Pulse Ox 100% on 3 lpm NC; sg 13:53 BP 92 / 51; Pulse 70; Resp 16; Pulse Ox 99% on 3 lpm NC; sg 15:34 BP 98 / 53; Pulse 64; Resp 19 S; Pulse Ox 97% on 3 lpm NC; sg 12:30 pt reports uses 3 lpm NC at home continous, orders recieved for 500 mL NS bolus sg ED Course: 11:30 Maintain EMS IV. Dressing intact. Good blood return noted. Site clean \T\ dry. Gauge \T\ sg site: 20 lAC. IV is patent, is intact, Flushed right antecubital with 5 ml normal saline. 11:38 Patient arrived in ED. sg 11:43 Keith Cuenca, RN is Primary Nurse. sg 11:43 EKG done, by trailer technician. tc 11:45 Triage completed. sg 11:45 Carmine Fuller NP is PHCP. pm1 11:45 Sylvia Roberto MD is Attending Physician. pm1 11:45 Patient has correct armband on for positive identification. Bed in low position. Call sg light in reach. Side rails up X2. monitor tech on. Pulse ox on. NIBP on. Warm blanket given. Pillow given. Head of bed elevated. 11:46 Arm band placed on. sg 12:19 XRAY Chest (1 view) In Process Unspecified. EDMS 15:43 Armen Waters MD is Referral Physician. pm1 16:20 No provider procedures requiring assistance completed. IV discontinued, intact, sg bleeding controlled, No redness/swelling at site. Pressure dressing applied. Administered Medications: 13:15 Drug: predniSONE 60 mg Route: PO; sg 13:15 Drug: NS 0.9% 500 ml Route: IV; Rate: bolus; Site: left antecubital; sg 13:35 Drug: Albuterol 2.5 mg Route: Inhalation; sg 13:50 Drug: Rocephin 1 grams Route: IV; Rate: calculated rate; Site: left antecubital; sg 14:35 Drug: NS 0.9% 500 ml Volume: 500 ml; Route: IV; Rate: 1 bolus; Site: left antecubital; ls4 Outcome: 15:42 Discharge ordered by MD. pm1 16:20 Discharged to home via wheelchair, with family. sg 16:20 Condition: good 16:20 Discharge instructions given to patient, Instructed on discharge instructions, follow up and referral plans. Demonstrated understanding of instructions, follow-up care, Prescriptions given X 3. 16:26 Patient left the ED. ss Signatures: Dispatcher [employer] EDMS Keith Cuenca RN RN sg Smirch, Shelby, RN RN ss Callis, Tiffany, heel former EKG Ttc Carmine Fuller NP THRILL PERFORMER pm1 Domonique Justice, RN RN ls4 Elisabeth Joseph lt1 Corrections: (The following items were deleted from the chart) 11:51 11:46 Social history: Smoking status: Patient/guardian denies using tobacco, the patient reports quitting approximately 3 years ago, 13:37 11:30 Maintain EMS IV. Dressing intact. Good blood return noted. Site clean \T\ dry. sg Gauge \T\ site: 22 RAC. IV is patent, is intact, Flushed right antecubital with 5 ml normal saline sg 15:35 15:34 BP 98 / 53; Pulse 64bpm; Resp 19bpm; Spontaneous; Pulse Ox 97% RA; sg sg
--- NOTE | 2019-03-13 15:42 | EDPHYS ---
Physician Documentation [facility] Name: Mary Estrada Age: 63 yrs Sex: Female : 1955 Arrival Date: 03/13/2019 Time: 11:38 Bed 26 Private MD: ED Physician Sylvia Roberto HPI: 03/13 12:05 This 63 yrs old Female presents to ER via EMS with complaints of Shortness Of pm1 Breath. 12:05 The patient has shortness of breath with light activity. Onset: The symptoms/episode pm1 began/occurred 3 day(s) ago. Duration: The symptoms are continuous. The patient's shortness of breath is aggravated by light activity, is alleviated by nothing. Associated signs and symptoms: Pertinent positives: productive cough, Pertinent negatives: chest pain, dizziness, fever, nausea, vomiting. Severity of symptoms: in the emergency department the symptoms are worse. The patient has experienced similar episodes in the past, multiple times. The patient has not recently seen a physician. Historical: - Allergies: 11:46 Morphine; sg 11:46 Sulfa (Sulfonamide Antibiotics); sg - Home Meds: 11:50 benzonatate 100 mg oral cap 1 cap [Active]; Xarelto 20 mg Oral tab 1 tab once daily sg [Active]; Sorine 80 mg Oral tab 1 tab [Active]; valacyclovir 500 mg Oral tab 1 tab once daily [Active]; - PMHx: 11:46 COPD; non-hodgkin's lymphoma; sg - PSHx: 11:46 Tonsillectomy; sg - Immunization history:: Adult Immunizations up to date. - Social history:: Smoking status: Patient/guardian denies using tobacco. - Ebola Screening: : Patient negative for fever greater than or equal to 101.5 degrees Fahrenheit, and additional compatible Ebola Virus Disease symptoms Patient denies exposure to infectious person Patient denies travel to an Ebola-affected area in the 21 days before illness onset No symptoms or risks identified at this time. ROS: 12:05 Constitutional: Negative for fever, chills, and weight loss, Eyes: Negative for injury, pm1 pain, redness, and discharge, ENT: Negative for injury, pain, and discharge, Neck: Negative for injury, pain, and swelling, Cardiovascular: Negative for chest pain, palpitations, and edema. 12:05 Abdomen/GI: Negative for abdominal pain, nausea, vomiting, diarrhea, and constipation, Back: Negative for injury and pain, : Negative for injury, bleeding, discharge, and swelling, MS/Extremity: Negative for injury and deformity, Skin: Negative for injury, rash, and discoloration, Neuro: Negative for headache, weakness, numbness, tingling, and seizure. 12:05 Respiratory: Positive for cough, with green sputum, shortness of breath. Exam: 12:05 Constitutional: This is a well developed, well nourished patient who is awake, alert, pm1 and in no acute distress. Head/Face: Normocephalic, atraumatic. Eyes: Pupils equal round and reactive to light, extra-ocular motions intact. Lids and lashes normal. Conjunctiva and sclera are non-icteric and not injected. Cornea within normal limits. Periorbital areas with no swelling, redness, or edema. ENT: Nares patent. No nasal discharge, no septal abnormalities noted. Tympanic membranes are normal and external auditory canals are clear. Oropharynx with no redness, swelling, or masses, exudates, or evidence of obstruction, uvula midline. Mucous membranes moist. Neck: Trachea midline, no thyromegaly or masses palpated, and no cervical lymphadenopathy. Supple, full range of motion without nuchal rigidity, or vertebral point tenderness. No Meningismus. Chest/axilla: Normal chest wall appearance and motion. Nontender with no deformity. No lesions are appreciated. Cardiovascular: Regular rate and rhythm with a normal S1 and S2. No gallops, murmurs, or rubs. Normal PMI, no JVD. No pulse deficits. Respiratory: Lungs have equal breath sounds bilaterally, clear to auscultation and percussion. No rales, rhonchi or wheezes noted. No increased work of breathing, no retractions or nasal flaring. Abdomen/GI: Soft, non-tender, with normal bowel sounds. No distension or tympany. No guarding or rebound. No evidence of tenderness throughout. Back: No spinal tenderness. No costovertebral tenderness. Full range of motion. Skin: Warm, dry with normal turgor. Normal color with no rashes, no lesions, and no evidence of cellulitis. MS/ Extremity: Pulses equal, no cyanosis. Neurovascular intact. Full, normal range of motion. 12:05 Neuro: Orientation: is normal, Motor: is normal, moves all fours. Vital Signs: 11:39 BP 99 / 57; Pulse 71; Resp 16; Temp 98.8(A); Pulse Ox 100% ; lt1 12:30 BP 89 / 42; Pulse 77; Resp 17; Pulse Ox 100% on 3 lpm NC; sg 13:53 BP 92 / 51; Pulse 70; Resp 16; Pulse Ox 99% on 3 lpm NC; sg 15:34 BP 98 / 53; Pulse 64; Resp 19 S; Pulse Ox 97% on 3 lpm NC; sg 12:30 pt reports uses 3 lpm NC at home continous, orders recieved for 500 mL NS bolus sg MDM: 11:57 Patient medically screened. pm1 14:28 Data reviewed: vital signs. Data interpreted: Pulse oximetry: on 2L(s) per nasal pm1 canula, is 99 %. Interpretation:. 14:34 Counseling: I had a detailed discussion with the patient and/or guardian regarding: the pm1 historical points, exam findings, and any diagnostic results supporting the discharge/admit diagnosis, lab results, radiology results. 15:40 ED course: Patient reports 90's systolic is her baseline blood pressure and daughter pm1 verified that. Patient feels better and wants to go home. 03/13 11:57 Order name: Basic Metabolic Panel; Complete Time: 12:41 pm03/13 11:57 Order name: CBC with Diff; Complete Time: 13:27 pm1 03/13 11:57 Order name: LFT's; Complete Time: 12:41 pm03/13 11:57 Order name: Magnesium; Complete Time: 12:41 pm03/13 11:57 Order name: PT-INR; Complete Time: 12:31 pm03/13 11:57 Order name: Troponin (emerg Dept Use Only); Complete Time: 12:41 pm03/13 11:57 Order name: XRAY Chest (1 view); Complete Time: 12:41 pm03/13 11:57 Order name: EKG; Complete Time: 11:58 pm1 03/13 12:49 Order name: Manual Differential; Complete Time: 13:27 EDMS 03/13 11:57 Order name: Cardiac monitoring; Complete Time: 11:57 pm1 03/13 11:57 Order name: EKG - Nurse/Tech; Complete Time: 11:57 pm1 03/13 11:57 Order name: IV Saline Lock; Complete Time: 12:00 pm1 03/13 11:57 Order name: Labs collected and sent; Complete Time: 12:07 pm1 03/13 11:57 Order name: O2 Per Protocol; Complete Time: 12:56 pm1 03/13 11:57 Order name: O2 Sat Monitoring; Complete Time: 11:59 pm1 Administered Medications: 13:15 Drug: predniSONE 60 mg Route: PO; sg 13:15 Drug: NS 0.9% 500 ml Route: IV; Rate: bolus; Site: left antecubital; sg 13:35 Drug: Albuterol 2.5 mg Route: Inhalation; sg 13:50 Drug: Rocephin 1 grams Route: IV; Rate: calculated rate; Site: left antecubital; sg 14:35 Drug: NS 0.9% 500 ml Volume: 500 ml; Route: IV; Rate: 1 bolus; Site: left antecubital; ls4 Disposition: 15:38 Co-signature as Attending Physician, Sylvia Roberto MD. ma2 Disposition: 03/13/19 15:42 Discharged to Home. Impression: Chronic obstructive pulmonary disease with (acute) exacerbation. - Condition is Stable. - Discharge Instructions: Chronic Obstructive Pulmonary Disease Exacerbation. - Prescriptions for Prednisone 20 mg Oral Tablet - take 3 tablet by ORAL route once daily for 5 days; 15 tablet. Zithromax Z- Jose David 250 mg Oral Tablet - take 1 tablet by ORAL route as directed for 5 days Day 1 - take two (2) tablets one time. Day 2, 3, 4 , 5 take one (1) tablet once daily.; 6 tablet. Guaifenesin AC 10- 100 mg/5 mL Oral Liquid - take 10 milliliter by ORAL route every 4 hours As needed; 240 milliliter. - Medication Reconciliation Form, Thank You Letter, Antibiotic Education, Prescription Opioid Use form. - Follow up: Emergency Department; When: As needed; Reason: Worsening of condition. Follow up: Private Physician; When: 2 - 3 days; Reason: Recheck today's complaints, Continuance of care, Re-evaluation by your physician. Follow up: Armen Waters MD; When: 2 - 3 days; Reason: Recheck today's complaints, Continuance of care, Re-evaluation by your physician. - Problem is new. - Symptoms have improved. Signatures: Dispatcher [employer] EDKeith Coombs RN RN Susie Walsh RN RN Carmine Fuller, RICHARD CRUISE COUNSELOR pm1 Sylvia Roberto MD MD ma2 Domonique Justice RN RN ls4 Corrections: (The following items were deleted from the chart) 11:51 11:46 Social history: Smoking status: Patient/guardian denies using tobacco, the patient reports quitting approximately 3 years ago, 15:43 15:42 03/13/2019 15:42 Discharged to Home. Impression: Chronic obstructive pulmonary pm1 disease with (acute) exacerbation. Condition is Stable. Forms are Medication Reconciliation Form, Thank You Letter, Antibiotic Education, Prescription Opioid Use. Follow up: Emergency Department; When: As needed; Reason: Worsening of condition. Follow up: Private Physician; When: 2 - 3 days; Reason: Recheck today's complaints, Continuance of care, Re-evaluation by your physician. Problem is new. Symptoms have improved. pm1 16:26 15:43 03/13/2019 15:42 Discharged to Home. Impression: Chronic obstructive pulmonary ss disease with (acute) exacerbation. Condition is Stable. Discharge Instructions: Chronic Obstructive Pulmonary Disease Exacerbation. Prescriptions for Prednisone 20 mg Oral Tablet - take 3 tablet by ORAL route once daily for 5 days; 15 tablet, Zithromax Z-Jose David 250 mg Oral Tablet - take 1 tablet by ORAL route as directed for 5 days Day 1 - take two (2) tablets one time. Day 2, 3, 4 , 5 take one (1) tablet once daily.; 6 tablet, Guaifenesin AC 10-100 mg/5 mL Oral Liquid - take 10 milliliter by ORAL route every 4 hours As needed; 240 milliliter. and Forms are Medication Reconciliation Form, Thank You Letter, Antibiotic Education, Prescription Opioid Use. Follow up: Emergency Department; When: As needed; Reason: Worsening of condition. Follow up: Private Physician; When: 2 - 3 days; Reason: Recheck today's complaints, Continuance of care, Re-evaluation by your physician. Follow up: Armen Waters; When: 2 - 3 days; Reason: Recheck today's complaints, Continuance of care, Re-evaluation by your physician. Problem is new. Symptoms have improved. pm1
[2019-03-13 21:09] VITALS: TEMP 98.8
[2019-03-13 21:14] VITALS: BP 98/53; O2SAT 97
== END 2019-03-13 16:26 | disposition home or self-care (01) ==
LOC: ER 11:34
DX: J44.1 Chronic obstructive pulmonary disease with (acute) exacerbation (principal); C85.90 Non-Hodgkin lymphoma, unspecified, unspecified site; Z79.01 Long term (current) use of anticoagulants; Z88.5 Allergy status to narcotic agent; Z88.2 Allergy status to sulfonamides
CPT/HCPCS: 93005; 85025; 80048; 36415; 83735; 85610; 80076; 84484; 71045; 96374; 99285; J0696; J7512

== ENCOUNTER 2019-03-27 08:35 | Day surgery (SDC) | payer OTHER ==
[2019-03-27] MEDS ORDERED: Ringers Lactate 1,000 ML IV ONE (09:37)
[2019-03-27 09:47] VITALS: BP 111/62; TEMP 98.3; O2SAT 93
[2019-03-27] MEDS ORDERED: PROPOFOL 200 MG/20 ML VIAL IV ONE ×2 (10:30→10:31)
[2019-03-27] MEDS ORDERED: CEFAZOLIN/SWI 2gm 2 GM/20 ML SYR ONE (12:07)
[2019-03-27] MEDS ORDERED: ALBUTEROL 2.5 MG/3 ML NEB SOL ONE (12:13)
[2019-03-27] MEDS ORDERED: ONDANSETRON 4 MG/2 ML VIAL ONE (12:45)
--- NOTE | 2019-03-27 13:42 | RAD REPORT ---
EXAM DESCRIPTION: CT - Abdomen Pelvis W Contrast - 03/27/2019 1:23 pm CLINICAL HISTORY: Abdominal pain. Lymphoma COMPARISON: March 05, 2019 CT chest TECHNIQUE: Computed axial tomography of the abdomen and pelvis was obtained. 100 cc Isovue-300 is ad ministered intravenously. Oral contrast was given. All CT scans are performed using dose optimization technique as appropriate and may include automated exposure control or mA/KV adjustment according to patient size. FINDINGS: No significant change in right lower lobe atelectasis. Worsening in bibasilar tree-in-bud opacities Hepatic cyst Spleen, pancreas, adrenals and left kidney appear unremarkable. Mild right hydronephrosis is unchanged Ill-defined lymphadenopathy within the left periaortic region at the level of the kidneys unchanged. It measures about 2 centimeters. No pelvic lymphadenopathy Rectum is mildly distended with air and fluid measuring 7.9 centimeters 2 centimeter area sclerosis right iliac crest IMPRESSION: Worsening in bibasilar tree-in-bud opacities may represent atypical infection Stable right lower lobe atelectasis Stable left periaortic lymphadenopathy Mild right hydronephrosis unchanged 2 centimeter area sclerosis right iliac crest has developed since January 2018 and may indicate a blast ic metastasis
--- NOTE | 2019-03-27 13:51 | RAD REPORT ---
EXAM DESCRIPTION: Osmany Crawford And Aleksandar (2 Views)03/27/2019 1:40 pm CLINICAL HISTORY: Cough COMPARISON: March 13, 2019 FINDINGS: Right lower lobe atelectasis Worsening in bilateral reticulonodular opacities within the lung bases. Lungs are hyperaerated. Heart is normal size IMPRESSION: Right lower lobe atelectasis Worsening in bibasilar reticulonodular opacities which may indicate a atypical infection
== END 2019-03-27 13:56 | disposition home or self-care (01) ==
LOC: OR 08:35
PROVIDERS: ATTEND Internal Medicine Gastroenterology
PROC: 0DJD8ZZ Inspection of Lower Intestinal Tract, Via Natural or Artificial Opening Endoscopic (ICD-10-PCS; 2019-03-27)
PROC: 0DB68ZX Excision of Stomach, Via Natural or Artificial Opening Endoscopic, Diagnostic (ICD-10-PCS; principal; 2019-03-27 11:15)
PROC: 0DB78ZX Excision of Stomach, Pylorus, Via Natural or Artificial Opening Endoscopic, Diagnostic (ICD-10-PCS; 2019-03-27 11:15)
DX: K29.50 Unspecified chronic gastritis without bleeding (principal); K57.30 Diverticulosis of large intestine without perforation or abscess without bleeding; K64.8 Other hemorrhoids; K64.4 Residual hemorrhoidal skin tags; I48.91 Unspecified atrial fibrillation; J45.909 Unspecified asthma, uncomplicated; Z79.52 Long term (current) use of systemic steroids; Z79.01 Long term (current) use of anticoagulants; Z79.899 Other long term (current) drug therapy; Z85.72 Personal history of non-Hodgkin lymphomas; Z83.71 Family history of colonic polyps; Z92.21 Personal history of antineoplastic chemotherapy
CPT/HCPCS: 36415; 88312; 82565; 88305; 74177; 71046; 43239; 45378; Q9967; J2704; J0690; J2405

== ENCOUNTER 2019-03-30 14:00 | Emergency (ER) | payer OTHER ==
[2019-03-30] MEDS ORDERED: FAMOTIDINE 20 MG/2 ML VIAL IV ONE (14:51)
[2019-03-30] MEDS ORDERED: NA CHLORIDE 0.9% 1,000 ML ONE (14:51)
[2019-03-30] MEDS ORDERED: ONDANSETRON 4 MG/2 ML VIAL ONE (14:51)
--- NOTE | 2019-03-30 14:58 | RAD REPORT ---
EXAM DESCRIPTION: RAD - Chest Single View - 03/30/2019 2:49 pm CLINICAL HISTORY: Cough, low-grade fever, COPD, history of lymphoma COMPARISON: Chest exam March 27, 2018, chest exam December 2018 TECHNIQUE: AP portable chest image was obtained 1448 hours . FINDINGS: Patient has baseline interstitial fibrotic change. The interstitial and alveolar opacities seen in each lung base have improved. Current finding still above what appears to be a baseline appe arance December 2018. No failure or volume overload. Heart and vasculature are normal. No measurable pleural effusion and no pneumothorax. No acute bony a bnormality seen. No acute aortic findings suspected. IMPRESSION: Suspected pneumonia in each lung base has improved but not fully resolved from the March 27 imaging. Baseline interstitial fibrotic lung pattern.
[2019-03-30 15:15] LABS: Protime INR 2.81
[2019-03-30 15:16] LABS: Absolute Lymphocytes (CBC) 0.2 K/uL (0.7-4.9); Absolute Monocytes 0.2 K/uL (0.1-1.3); Absolute Neutrophil 3.2 K/uL (1.8-8.0); Basophils % 0.4 % (0-1.3); Eosinophils % 0.6 % (0-4.4); Hematocrit 34.5 % (36.0-45.0); Lymphocytes % 6.4 % (15.3-44.8); MPV 7.3 fL (7.6-11.3); RBC Red Blood Cell Count 3.73 M/uL (3.86-4.86)
[2019-03-30 15:37] LABS: Urine Blood 1+ (NEG); Urine Glucose NEGATIVE (NEG); Urine Protein 1+ (NEG); Urine pH 8.5 (5.0-7.0)
[2019-03-30 15:40] LABS: ALT/SGPT 13 U/L (12-78); AST/SGOT 22 U/L (15-37); Albumin 2.9 g/dL (3.4-5.0); Alkaline Phosphatase 68 U/L (45-117); BUN Blood Urea Nitrogen 12 mg/dL (7-18); Bicarbonate 30 mmol/L (21-32); Bilirubin Direct 0.2 mg/dL (0-0.2); Bilirubin Total 0.7 mg/dL (0.2-1.0); Glucose Level 102 mg/dL (74-106); Lipase 165 U/L (73-393); NT PRO-BNP 510 pg/mL (<125); Potassium 3.8 mmol/L (3.5-5.1); Protein, Total 6.9 g/dL (6.4-8.2); Sodium Level 140 mmol/L (136-145); Troponin (Emerg Dept Use Only) < 0.02 ng/mL (0.0-0.045)
[2019-03-30 15:53] LABS: Urine Amorphous Sediment 4+ /HPF (NONE SEEN); Urine Bacteria 20-50 /HPF (<20); Urine Culture Reflex Order REFLEXED; Urine RBC <5 /HPF (NONE SEEN)
[2019-03-30 16:33] LABS: Dohle Bodies PRESENT; Platelet Estimate ADEQ; Toxic Granulation 1+
[2019-03-30 16:34] LABS: Blood Morphology Comment NOT SEEN (NOT SEEN)
--- NOTE | 2019-03-30 18:23 | RAD REPORT ---
EXAM DESCRIPTION: CT - Abdomen Pelvis W Contrast - 03/30/2019 5:46 pm CLINICAL HISTORY: Abdominal pain with vomiting and diarrhea COMPARISON: March 27, 2019 cat scan TECHNIQUE: Computed axial tomography of the abdomen pelvis was obtained. 100 cc Isovue-300 was admin istered intravenously. Oral contrast was not requested which limits evaluation of bowel. All CT scans are performed using dose optimization technique as appropriate and may include automated exposure control or mA/KV adjustment according to patient size. FINDINGS: No change in right lower lobe atelectasis. Development of mild left lower lobe atelectasis . Mild tree-in-bud opacities within the lung bases Duplication of the right pyelocaliceal structures. Mild worsening in [id number] right hydroneph rosis of the lower pole moiety . Hepatic cyst Spleen, pancreas, adrenals and left kidney appear unremarkable. Ill-defined lymphadenopathy within the left periaortic region at the level of the kidneys unchanged. It measures about 2 centimeters. No pelvic lymphadenopathy There is no evidence of diverticulitis. 2 centimeter sclerosis right ilium IMPRESSION: Bilateral lower lobe atelectasis. Bilateral tree-in-bud opacities may indicate an atypic al infection Progression in mild to moderate right hydronephrosis
--- NOTE | 2019-03-30 18:39 | ER ---
Nurse's Notes [facility] Name: Mary Estrada Age: 63 yrs Sex: Female : 1955 Arrival Date: 03/30/2019 Time: 14:07 Bed 26 Private MD: Diagnosis: Nausea;Epigastric pain Presentation: 03/30 14:08 Presenting complaint: EMS states: 2--3 days ago pt had a Colonoscopy and since she has ca1 been complaining of N/V/D. Pt had a temp of 99.8F. Pt has COPD but denies SOB. We gave her A\T\A breathing treatment because SPO2 is at 92% at 2LPM of O2 when we get there. SPO2 increased to 94%. Transition of care: patient was not received from another setting of care. Onset of symptoms was March 27, 2019. Risk Assessment: Do you want to hurt yourself or someone else? Patient reports no desire to harm self or others. Initial Sepsis Screen: Does the patient meet any 2 criteria? No. Patient's initial sepsis screen is negative. Does the patient have a suspected source of infection? No. Patient's initial sepsis screen is negative. Care prior to arrival: Medication(s) given: Albuterol Neb x 1, Atrovent Neb x 1, Glucose check: 120 Oxygen administered. via nasal cannula. 14:08 Method Of Arrival: EMS: [facility] ca1 14:08 Acuity: SIMEON 3 ca1 Triage Assessment: 14:14 General: Appears in no apparent distress. ill, slender, Behavior is calm, cooperative, ca1 appropriate for age. Pain: Denies pain. GI: Abdomen is flat, non-distended, Bowel sounds present X 4 quads. Abd is soft and non tender X 4 quads. Reports nausea, vomiting, since Tuesday Patient currently denies diarrhea, Pt had reports to have had diarrhea on Tuesday after colonoscopy but has not have it since then. Historical: - Allergies: 14:14 Morphine; ca1 14:14 Sulfa (Sulfonamide Antibiotics); ca1 - Home Meds: 14:14 Advair Diskus Inhl [Active]; Xarelto 20 mg Oral tab 1 tab once daily [Active]; ca1 benzonatate 100 mg Oral cap 1 cap [Active]; albuterol sulfate inhalation Inhl [Active]; Prednisone Oral [Active]; - PMHx: 14:14 non-hodgkin's lymphoma; COPD; Atrial Fib; Pneumonia; ca1 - PSHx: 14:14 Tonsillectomy; ca1 - Immunization history:: Adult Immunizations not up to date, Flu vaccine is not up to date. - Social history:: Smoking status: Patient/guardian denies using tobacco. - Ebola Screening: : Patient negative for fever greater than or equal to 101.5 degrees Fahrenheit, and additional compatible Ebola Virus Disease symptoms Patient denies exposure to infectious person Patient denies travel to an Ebola-affected area in the 21 days before illness onset. Screenin:17 Abuse screen: Denies threats or abuse. Denies injuries from another. Nutritional ca1 screening: No deficits noted. Tuberculosis screening: No symptoms or risk factors identified. Fall Risk IV access (20 points). Assessment: 14:17 General: Appears in no apparent distress. ill, slender, Behavior is calm, cooperative, ca1 appropriate for age. Pain: Denies pain. Neuro: Level of Consciousness is awake, alert, obeys commands, Oriented to person, place, time, situation. Cardiovascular: Heart tones S1 S2 present Capillary refill < 3 seconds Patient's skin is warm and dry. Respiratory: Airway is patent Respiratory effort is even, unlabored, Respiratory pattern is regular, symmetrical, Breath sounds are clear bilaterally. GI: Abdomen is flat, non-distended, Bowel sounds present X 4 quads. Abd is soft and non tender X 4 quads. Reports nausea, vomiting, since Tuesday. : No deficits noted. No signs and/or symptoms were reported regarding the genitourinary system. EENT: No deficits noted. No signs and/or symptoms were reported regarding the EENT system. Derm: Skin is intact, is healthy with good turgor, Skin is pink, warm \T\ dry. Musculoskeletal: Musculoskeletal: Circulation, motion, and sensation intact. Capillary refill < 3 seconds. 14:55 Reassessment: Patient appears in no apparent distress at this time. Patient and/or ca1 family updated on plan of care and expected duration. Pain level reassessed. Patient is alert, oriented x 3, equal unlabored respirations, skin warm/dry/pink. 15:49 Reassessment: Patient appears in no apparent distress at this time. Patient and/or ca1 family updated on plan of care and expected duration. Pain level reassessed. Patient is alert, oriented x 3, equal unlabored respirations, skin warm/dry/pink. 16:51 Reassessment: Patient appears in no apparent distress at this time. Patient and/or ca1 family updated on plan of care and expected duration. Pain level reassessed. Patient is alert, oriented x 3, equal unlabored respirations, skin warm/dry/pink. 17:50 Reassessment: Patient appears in no apparent distress at this time. Patient is alert, ca1 oriented x 3, equal unlabored respirations, skin warm/dry/pink. 18:52 Reassessment: Patient appears in no apparent distress at this time. Patient is alert, ca1 oriented x 3, equal unlabored respirations, skin warm/dry/pink. No reports of N/V. Juice and water tolerated well. Vital Signs: 14:06 BP 103 / 60 RA (auto/reg); Pulse 84; Resp 20; Temp 99(O); Pulse Ox 92% on 3 lpm NC; jp3 Weight 53.07 kg; Height 5 ft. 8 in. (172.72 cm); Pain 0/10; 14:55 BP 110 / 55; Pulse 84; Resp 16 S; Pulse Ox 95% on 3 lpm NC; ca1 15:49 BP 103 / 56; Pulse 79; Resp 16 S; Temp 99.5(O); Pulse Ox 100% on 3 lpm NC; ca1 16:51 BP 105 / 48; Pulse 77; Resp 16 S; Temp 99.4(O); Pulse Ox 96% on 3 lpm NC; ca1 17:50 BP 104 / 54; Pulse 74; Resp 16 S; Pulse Ox 97% on 3 lpm NC; ca1 18:53 BP 112 / 53; Pulse 72; Resp 16 S; Temp 97.9(O); Pulse Ox 100% on 3 lpm NC; ca1 14:06 Body Mass Index 17.79 (53.07 kg, 172.72 cm) 3 ED Course: 14:07 Patient arrived in ED. ca1 14:12 Triage completed. ca1 14:12 Arm band placed on right wrist. ca1 14:13 Patient has correct armband on for positive identification. Bed in low position. Call jp3 light in reach. Side rails up X 1. Side rails up X2. Warm blanket given. Verbal reassurance given. Pulse ox on. NIBP on. 14:14 Suresh Stoll PA is PHCP. cp 14:14 Brett Morris MD is Attending Physician. cp 14:25 Kortney Prescott, CURTIS is Primary Nurse. ca1 14:42 Initial lab(s) drawn, by ut, sent to lab. Inserted saline lock: 22 gauge in left jp3 antecubital area, using aseptic technique. Blood collected. 14:44 EKG done, by technical instructor. reviewed by Suresh HOSKINS. 3 14:49 XRAY Chest (1 view) In Process Unspecified. EDMS 15:03 Procalcitonin Sent. jp3 15:04 Lactate Sent. jp3 17:47 CT Abd/Pelvis - IV Contrast Only In Process Unspecified. EDMS 18:50 Diet: Patient given juice. Patient given water. Tolerated well. ca1 19:00 No provider procedures requiring assistance completed. IV discontinued, intact, ca1 bleeding controlled, No redness/swelling at site. Pressure dressing applied. Administered Medications: 14:40 Drug: NS 0.9% 1000 ml Route: IV; Rate: 500 ml/hr; Site: left antecubital; ca1 16:47 Follow up: Response: No adverse reaction; IV Status: Completed infusion ca1 14:42 Drug: Zofran 4 mg Route: IVP; Site: left antecubital; ca1 15:35 Follow up: Response: No adverse reaction; Nausea is decreased ca1 14:44 Drug: Pepcid 20 mg Route: IVP; Site: left antecubital; ca1 15:35 Follow up: Response: No adverse reaction ca1 18:40 Drug: ProTONIX 40 mg Route: IVP; Site: left antecubital; ca1 19:00 Follow up: Response: No adverse reaction; Medication administered at discharge. ca1 Outcome: 18:38 Discharge ordered by MD. cp 19:00 Discharged to home via wheelchair, with family. ca1 19:00 Condition: stable 19:00 Discharge instructions given to patient, family, Instructed on discharge instructions, follow up and referral plans. medication usage, Demonstrated understanding of instructions, follow-up care, medications, Prescriptions given X 3. 19:16 Patient left the ED. ca1 Signatures: Dispatcher [employer] EDMS Suresh Stoll PA PA cp Montes, Shakira 3 Wade Pizarro jp3 Kortney Prescott, RN RN ca1 Corrections: (The following items were deleted from the chart) 14:18 14:14 Arm band placed on right wrist. ca1 ca1 14:27 14:08 Presenting complaint: EMS states: 2--3 days ago pt had a Colonoscopy and since ca1 she has been complaining of N/V/D. Pt has COPD but denies SOB. We gave her A\T\A breathing treatment because SPO2 is at 92% at 2LPM of O2 when we get there. SPO2 increased to 94%. ca1 19:00 14:55 BP 110 / 55; Pulse 84bpm; Resp 16bpm; Spontaneous; Pulse Ox 95% RA; ca1 ca1 19:00 15:49 BP 103 / 56; Pulse 79bpm; Resp 16bpm; Spontaneous; Pulse Ox 100% RA; Temp 99.5F ca1 Oral; ca1 19:00 16:51 BP 105 / 48; Pulse 77bpm; Resp 16bpm; Spontaneous; Pulse Ox 96% RA; Temp 99.4F ca1 Oral; ca1 19:00 17:50 BP 104 / 54; Pulse 74bpm; Resp 16bpm; Spontaneous; Pulse Ox 97% RA; ca1 ca1
--- NOTE | 2019-03-30 18:39 | EDPHYS ---
Physician Documentation [facility] Name: Mary Estrada Age: 63 yrs Sex: Female : 1955 Arrival Date: 03/30/2019 Time: 14:07 Bed 26 Private MD: ED Physician Brett Morris HPI: 03/30 15:16 This 63 yrs old Female presents to ER via EMS with complaints of cp Nausea/Vomiting/Diarrhea. 15:16 The patient presents to the emergency department with nausea, that is moderate, cp decreased appetite. Onset: The symptoms/episode began/occurred months. 15:16 Associated signs and symptoms: Pertinent negatives: constipation, diarrhea, fever, cp active vomiting. 15:16 Severity of symptoms: in the emergency department the symptoms are unchanged. Patient cp reports having endoscopy and colonoscopy by DR Sunshine 2 days ago. Patient reports having diarrhea Tuesday and Tuesday due to the bowel prep, but since colonoscopy has been nauseated and not wanting to eat. Patient denies vomiting and no diarrhea last 24 hours. Historical: - Allergies: 14:14 Morphine; ca1 14:14 Sulfa (Sulfonamide Antibiotics); ca1 - Home Meds: 14:14 Advair Diskus Inhl [Active]; Xarelto 20 mg Oral tab 1 tab once daily [Active]; ca1 benzonatate 100 mg Oral cap 1 cap [Active]; albuterol sulfate inhalation Inhl [Active]; Prednisone Oral [Active]; - PMHx: 14:14 non-hodgkin's lymphoma; COPD; Atrial Fib; Pneumonia; ca1 - PSHx: 14:14 Tonsillectomy; ca1 - Immunization history:: Adult Immunizations not up to date, Flu vaccine is not up to date. - Social history:: Smoking status: Patient/guardian denies using tobacco. - Ebola Screening: : Patient negative for fever greater than or equal to 101.5 degrees Fahrenheit, and additional compatible Ebola Virus Disease symptoms Patient denies exposure to infectious person Patient denies travel to an Ebola-affected area in the 21 days before illness onset. ROS: 15:20 Constitutional: Negative for body aches, chills, fever, poor PO intake. cp 15:20 Eyes: Negative for injury, pain, redness, and discharge. cp 15:20 ENT: Negative for drainage from ear(s), ear pain, sore throat, difficulty swallowing, difficulty handling secretions. 15:20 Cardiovascular: Negative for chest pain, edema, palpitations. 15:20 Respiratory: Negative for cough, shortness of breath, wheezing. 15:20 Abdomen/GI: Positive for abdominal pain, nausea, anorexia, Negative for vomiting, diarrhea, constipation, black/tarry stool, rectal bleeding. 15:20 : Negative for urinary symptoms. 15:20 Skin: Negative for cellulitis, rash. 15:20 Neuro: Negative for altered mental status, headache, weakness. 15:20 All other systems are negative. Exam: 14:45 ECG was reviewed by the Attending Physician. cp 15:25 Constitutional: The patient appears in no acute distress, alert, awake, cp non-diaphoretic, non-toxic, well developed, frail. 15:25 Head/Face: Normocephalic, atraumatic. cp 15:25 Eyes: Periorbital structures: appear normal, Pupils: equal, round, and reactive to light and accomodation, Extraocular movements: intact throughout, Conjunctiva: normal, no exudate, no injection, Sclera: no appreciated abnormality, Lids and lashes: appear normal, bilaterally. 15:25 ENT: External ear(s): are unremarkable, Ear canal(s): are normal, clear, TM's: bulging, is not appreciated, bilaterally, dullness, bilaterally, erythema, is not appreciated, bilaterally, Nose: is normal, Mouth: Lips: dry, Oral mucosa: dry, Posterior pharynx: is normal, airway is patent, no erythema, no exudate. 15:25 Neck: ROM/movement: is normal, is supple, without pain, no range of motions limitations, no meningismus, no nuchal rigidity. 15:25 Chest/axilla: Inspection: normal, Palpation: is normal, no crepitus, no tenderness. 15:25 Cardiovascular: Rate: normal, Rhythm: regular, Pulses: Pulses are 2+ in right radial artery and left radial artery. Edema: is not appreciated, JVD: is not appreciated. 15:25 Respiratory: the patient does not display signs of respiratory distress, Respirations: normal, no use of accessory muscles, no retractions, no splinting, no tachypnea, labored breathing, is not present, Breath sounds: are clear throughout, no decreased breath sounds, no stridor, no wheezing. 15:25 Abdomen/GI: Inspection: abdomen appears normal, Bowel sounds: active, all quadrants, Palpation: soft, in all quadrants, mild abdominal tenderness, in the right upper quadrant, rebound tenderness, is not appreciated, voluntary guarding, is not appreciated, involuntary guarding, is not appreciated. 15:25 Back: pain, is absent, ROM is normal. 15:25 Skin: cellulitis, is not appreciated, no rash present. 15:25 Neuro: Orientation: to person, place \T\ time. Mentation: is normal, Motor: moves all fours. Vital Signs: 14:06 BP 103 / 60 RA (auto/reg); Pulse 84; Resp 20; Temp 99(O); Pulse Ox 92% on 3 lpm NC; jp3 Weight 53.07 kg; Height 5 ft. 8 in. (172.72 cm); Pain 0/10; 14:55 BP 110 / 55; Pulse 84; Resp 16 S; Pulse Ox 95% on 3 lpm NC; ca1 15:49 BP 103 / 56; Pulse 79; Resp 16 S; Temp 99.5(O); Pulse Ox 100% on 3 lpm NC; ca1 16:51 BP 105 / 48; Pulse 77; Resp 16 S; Temp 99.4(O); Pulse Ox 96% on 3 lpm NC; ca1 17:50 BP 104 / 54; Pulse 74; Resp 16 S; Pulse Ox 97% on 3 lpm NC; ca1 18:53 BP 112 / 53; Pulse 72; Resp 16 S; Temp 97.9(O); Pulse Ox 100% on 3 lpm NC; ca1 14:06 Body Mass Index 17.79 (53.07 kg, 172.72 cm) jp3 MDM: 14:14 Patient medically screened. cp 18:37 Data reviewed: vital signs, nurses notes, lab test result(s), EKG, radiologic studies, cp CT scan, plain films. 18:37 Test interpretation: by ED physician or midlevel provider: ECG, plain radiologic cp studies. Counseling: I had a detailed discussion with the patient and/or guardian regarding: the historical points, exam findings, and any diagnostic results supporting the discharge/admit diagnosis, lab results, radiology results, the need for outpatient follow up, a family practitioner, to return to the emergency department if symptoms worsen or persist or if there are any questions or concerns that arise at home. Response to treatment: the patient's symptoms have mildly improved after treatment. ED course: VSS. Nausea improved and patient reports she is feeling better. Will discharge to home for continued monitoring. 03/30 14:30 Order name: Basic Metabolic Panel 03/30 14:30 Order name: CBC with Diff cp 03/30 14:30 Order name: LFT's; Complete Time: 16:46 03/30 14:30 Order name: Magnesium; Complete Time: 16:46 03/30 14:30 Order name: NT PRO-BNP; Complete Time: 16:46 03/30 14:30 Order name: PT-INR; Complete Time: 16:46 03/30 14:30 Order name: Troponin (emerg Dept Use Only); Complete Time: 16:46 03/30 14:33 Order name: Basic Metabolic Panel; Complete Time: 16:46 EDMS 03/30 14:33 Order name: CBC with Automated Diff; Complete Time: 16:46 EDMS 03/30 16:46 Interpretation: Normal except: WBC 3.7; RBC 3.73; HGB 11.4; HCT 34.5; RDW 15.4; MPV cp 7.3; ROSENDO% 86.6; LYM% 6.4; LYMA 0.2. 03/30 14:31 Order name: Urine Microscopic Only; Complete Time: 16:46 03/30 16:47 Interpretation: Normal except: UBACT 20-50; SQEPI 5-10; AMORPH 4+. 03/30 14:31 Order name: Lactate; Complete Time: 16:46 03/30 14:31 Order name: Procalcitonin; Complete Time: 16:46 03/30 14:46 Order name: Lipase; Complete Time: 16:46 EDMS 03/30 14:30 Order name: XRAY Chest (1 view); Complete Time: 15:05 03/30 14:30 Order name: EKG; Complete Time: 14:34 cp 03/30 14:30 Order name: Cardiac monitoring; Complete Time: 14:49 03/30 14:30 Order name: EKG - Nurse/Tech; Complete Time: 14:49 03/30 14:30 Order name: IV Saline Lock; Complete Time: 14:49 cp 03/30 14:30 Order name: Labs collected and sent; Complete Time: 14:49 cp 03/30 14:30 Order name: O2 Per Protocol; Complete Time: 14:49 cp 03/30 15:19 Order name: Manual Differential; Complete Time: 16:46 EDMS 03/30 16:47 Interpretation: Normal except: BANDS [F] 8; LYM 8; META 1. cp 03/30 15:25 Order name: Urine Dipstick--Ancillary (enter results); Complete Time: 16:46 ms 03/30 15:55 Order name: Urine Culture EDMS 03/30 17:00 Order name: CT Abd/Pelvis - IV Contrast Only; Complete Time: 18:29 cp 03/30 14:30 Order name: O2 Sat Monitoring; Complete Time: 14:48 cp 03/30 14:31 Order name: Urine Dipstick-Ancillary (obtain specimen); Complete Time: 15:05 cp 03/30 18:37 Order name: PO challenge; Complete Time: 18:52 cp EC:45 Rate is 85 beats/min. Rhythm is regular. IN interval is normal. QRS interval is cp prolonged at 108 msec. QT interval is normal. Interpreted by me. Reviewed by me. Administered Medications: 14:40 Drug: NS 0.9% 1000 ml Route: IV; Rate: 500 ml/hr; Site: left antecubital; ca1 16:47 Follow up: Response: No adverse reaction; IV Status: Completed infusion ca1 14:42 Drug: Zofran 4 mg Route: IVP; Site: left antecubital; ca1 15:35 Follow up: Response: No adverse reaction; Nausea is decreased ca1 14:44 Drug: Pepcid 20 mg Route: IVP; Site: left antecubital; ca1 15:35 Follow up: Response: No adverse reaction ca1 18:40 Drug: ProTONIX 40 mg Route: IVP; Site: left antecubital; ca1 19:00 Follow up: Response: No adverse reaction; Medication administered at discharge. ca1 Disposition: 03/30/19 18:38 Discharged to Home. Impression: Nausea, Epigastric pain. - Condition is Stable. - Discharge Instructions: Gastritis, Adult, Nausea, Adult. - Prescriptions for Protonix 40 mg Oral Tablet - take 1 tablet by ORAL route once daily; 30 tablet. Zofran 4 mg Oral Tablet - take 1 tablet by ORAL route every 12 hours As needed; 20 tablet. Zithromax Z- Jose David 250 mg Oral Tablet - take 1 tablet by ORAL route as directed for 5 days Day 1 - take two (2) tablets one time. Day 2, 3, 4 , 5 take one (1) tablet once daily.; 6 tablet. - Medication Reconciliation Form, Thank You Letter, Antibiotic Education, Prescription Opioid Use form. - Follow up: Private Physician; When: 2 - 3 days; Reason: Recheck today's complaints. - Problem is new. - Symptoms have improved. Addendum: 04/02/2019 11:53 Co-signature as Attending Physician, Brett Morris MD I agree with the assessment and k dr plan of care. Signatures: Dispatcher [employer] EDCO Brett Morris MD MD [facility] Suresh Stoll PA PA cp Acob, CURTIS Sheets RN ca1 Corrections: (The following items were deleted from the chart) 03/30 14:45 14:35 LIPASE+C.LAB.BRZ ordered. EDCO EDMS 17:17 16:50 Abdomen Pelvis W Con+CT.RAD.BRZ ordered. EDCO EDMS 18:39 18:38 03/30/2019 18:38 Discharged to Home. Impression: Nausea. Condition is Stable. cp Forms are Medication Reconciliation Form, Thank You Letter, Antibiotic Education, Prescription Opioid Use. Follow up: Private Physician; When: 2 - 3 days; Reason: Recheck today's complaints. Problem is new. Symptoms have improved. cp 19:16 18:39 03/30/2019 18:38 Discharged to Home. Impression: Nausea; Epigastric pain. ca1 Condition is Stable. Discharge Instructions: Nausea, Adult, Gastritis, Adult. Prescriptions for Protonix 40 mg Oral Tablet - take 1 tablet by ORAL route once daily; 30 tablet, Zofran 4 mg Oral Tablet - take 1 tablet by ORAL route every 12 hours As needed; 20 tablet, Zithromax Z-Josed Avid 250 mg Oral Tablet - take 1 tablet by ORAL route as directed for 5 days Day 1 - take two (2) tablets one time. Day 2, 3, 4 , 5 take one (1) tablet once daily.; 6 tablet. and Forms are Medication Reconciliation Form, Thank You Letter, Antibiotic Education, Prescription Opioid Use. Follow up: Private Physician; When: 2 - 3 days; Reason: Recheck today's complaints. Problem is new. Symptoms have improved. cp
[2019-03-30] MEDS ORDERED: PANTOPRAZOLE 40 MG INJ ONE (19:00)
[2019-03-30] MEDS ORDERED: WATER FOR INJ,STERILE 10 ML ONE (19:01)
[2019-03-30 19:37] VITALS: BP 112/53; TEMP 97.9; O2SAT 100
--- NOTE | 2019-03-31 08:09 | EKG ---
Test Date: 2019-03-30 Test Time: 14:42:18 Dairy Management Specialist: EDUAR-Kera MEASUREMENT RESULTS: Intervals: Rate: 85 KS: 134 QRSD: 108 QT: 392 QTc: 466 [place]: P: 80 KS: 134 QRS: 72 T: 70 INTERPRETIVE STATEMENTS: Normal sinus rhythm Incomplete right bundle branch block Borderline ECG Compared to ECG 03/13/2019 11:43:54 No significant changes Electronically Signed On 03-31-19 08:09:14 CDT by Neri Burch
== END 2019-03-30 19:16 | disposition home or self-care (01) ==
LOC: ER 14:00
DX: R10.13 Epigastric pain (principal); I48.91 Unspecified atrial fibrillation; J44.9 Chronic obstructive pulmonary disease, unspecified; Z79.01 Long term (current) use of anticoagulants; Z85.72 Personal history of non-Hodgkin lymphomas; Z88.2 Allergy status to sulfonamides; Z88.5 Allergy status to narcotic agent
CPT/HCPCS: 96361; 93005; 87088; 85025; 87086; 80048; 36415; 83735; 85610; 80076; 83605; 84484; 83690; 84145; 83880; 74177; 71045; 96375; 96374; 99284; Q9967; C9113; J7030; J2405; 81003; 81015

== ENCOUNTER 2019-04-01 08:50 | Emergency (ER) | payer OTHER ==
[2019-04-01] MEDS ORDERED: NA CHLORIDE 0.9% 1,000 ML ONE (09:31)
[2019-04-01] MEDS ORDERED: ONDANSETRON 4 MG/2 ML VIAL ONE (09:39)
[2019-04-01 09:40] LABS: Absolute Lymphocytes (CBC) 0.3 K/uL (0.7-4.9); Absolute Monocytes 0.3 K/uL (0.1-1.3); Absolute Neutrophil 2.3 K/uL (1.8-8.0); Basophils % 0.8 % (0-1.3); Eosinophils % 1.3 % (0-4.4); Hematocrit 33.6 % (36.0-45.0); Lymphocytes % 9.1 % (15.3-44.8); MPV 7.2 fL (7.6-11.3); Protime INR 1.47; RBC Red Blood Cell Count 3.68 M/uL (3.86-4.86)
[2019-04-01 09:57] LABS: ALT/SGPT 12 U/L (12-78); AST/SGOT 21 U/L (15-37); Albumin 2.8 g/dL (3.4-5.0); Alkaline Phosphatase 69 U/L (45-117); BUN Blood Urea Nitrogen 9 mg/dL (7-18); Bicarbonate 25 mmol/L (21-32); Bilirubin Direct 0.3 mg/dL (0-0.2); Bilirubin Total 0.8 mg/dL (0.2-1.0); Glucose Level 85 mg/dL (74-106); Magnesium 1.8 mg/dL (1.8-2.4); NT PRO-BNP 428 pg/mL (<125); Potassium 3.6 mmol/L (3.5-5.1); Protein, Total 6.4 g/dL (6.4-8.2); Sodium Level 139 mmol/L (136-145); Troponin (Emerg Dept Use Only) < 0.02 ng/mL (0.0-0.045)
--- NOTE | 2019-04-01 10:24 | RAD REPORT ---
EXAM DESCRIPTION: [place]sm[place] Single View04/01/2019 9:34 am CLINICAL HISTORY: Chest pain COMPARISON: March 30 CT scan FINDINGS: Bibasilar opacities without significant change previously shown to represent a combination of atelectasis and reticulonodular opacities Upper lobes appear clear Heart is mildly enlarged
[2019-04-01] MEDS ORDERED: ALBUTEROL 2.5 MG/3 ML NEB SOL ONE (11:58)
[2019-04-01] MEDS ORDERED: IPRATROPIUM BROM 0.5MG/2.5ML ONE (11:58)
--- NOTE | 2019-04-01 12:14 | EDPHYS ---
Physician Documentation [facility] Name: Mary Estrada Age: 63 yrs Sex: Female : 1955 Arrival Date: 04/01/2019 Time: 08:52 Bed 2 Private MD: ED Physician Rayray Khoury HPI: 04/01 14:50 This 63 yrs old Female presents to ER via EMS with complaints of General gs Weakness. 14:50 The patient presents to the emergency department with weakness of the entire body, gs generalized weakness. Onset: The symptoms/episode began/occurred 1 week(s) ago. Associated signs and symptoms: Pertinent negatives: altered mental status, fever, seizure, syncope. Severity of symptoms: At their worst the symptoms were moderate in the emergency department the symptoms are unchanged. Current symptoms: Currently, the patient is not experiencing any symptoms. The patient has experienced similar episodes in the past, several times. The patient has been recently seen at the [facility] Emergency Department, last week, x2. Historical: - Allergies: 09:08 Morphine; ph 09:08 Sulfa (Sulfonamide Antibiotics); ph - Home Meds: 09:08 Advair Diskus Inhl [Active]; albuterol sulfate inhalation Inhl [Active]; valacyclovir ph 500 mg Oral tab 1 tab once daily [Active]; Sorine 80 mg Oral tab 1 tab [Active]; Xarelto 20 mg Oral tab 1 tab once daily [Active]; azithromycin 250 mg Oral tab [Active]; Zofran (as hydrochloride) 4 mg Oral tab [Active]; methylprednisolone 4 mg Oral tab [Active]; Mucus Relief DM oral oral [Active]; - PMHx: 09:08 Atrial Fib; COPD; non-hodgkin's lymphoma; Pneumonia; ph - Immunization history:: Adult Immunizations unknown. - Social history:: Smoking status: Patient/guardian denies using tobacco. - Ebola Screening: : No symptoms or risks identified at this time. ROS: 14:50 All other systems are negative. gs 14:56 Abdomen/GI: Positive for anorexia. gs Exam: 14:50 Head/Face: Normocephalic, atraumatic. Eyes: Pupils equal round and reactive to light, gs extra-ocular motions intact. Lids and lashes normal. Conjunctiva and sclera are non-icteric and not injected. Cornea within normal limits. Periorbital areas with no swelling, redness, or edema. ENT: Nares patent. No nasal discharge, no septal abnormalities noted. Tympanic membranes are normal and external auditory canals are clear. Oropharynx with no redness, swelling, or masses, exudates, or evidence of obstruction, uvula midline. Mucous membranes moist. Neck: Trachea midline, no thyromegaly or masses palpated, and no cervical lymphadenopathy. Supple, full range of motion without nuchal rigidity, or vertebral point tenderness. No Meningismus. Chest/axilla: Normal chest wall appearance and motion. Nontender with no deformity. No lesions are appreciated. Cardiovascular: Regular rate and rhythm with a normal S1 and S2. No gallops, murmurs, or rubs. Normal PMI, no JVD. No pulse deficits. Respiratory: Lungs have equal breath sounds bilaterally, clear to auscultation and percussion. No rales, rhonchi or wheezes noted. No increased work of breathing, no retractions or nasal flaring. Abdomen/GI: Soft, non-tender, with normal bowel sounds. No distension or tympany. No guarding or rebound. No evidence of tenderness throughout. Back: No spinal tenderness. No costovertebral tenderness. Full range of motion. Skin: Warm, dry with normal turgor. Normal color with no rashes, no lesions, and no evidence of cellulitis. MS/ Extremity: Pulses equal, no cyanosis. Neurovascular intact. Full, normal range of motion. Neuro: Awake and alert, GCS 15, oriented to person, place, time, and situation. Cranial nerves II-XII grossly intact. Motor strength 5/5 in all extremities. Sensory grossly intact. Cerebellar exam normal. Normal gait. 14:50 Constitutional: The patient appears alert, awake, pale. 14:50 ECG was reviewed by the Attending Physician. Vital Signs: 08:55 BP 118 / 58; Pulse 90; Resp 20; Temp 97.8; Pulse Ox 95% on R/A; Weight 53.07 kg; Height ph 5 ft. 8 in. (172.72 cm); Pain 5/10; 09:41 BP 122 / 48; Pulse 86; Resp 18; Pulse Ox 98% on 2 lpm NC; ph 11:00 BP 117 / 52; Pulse 81; Resp 18; Pulse Ox 98% on 4 lpm NC; ph 12:00 BP 118 / 60; Pulse 89; Resp 20; Temp 97.9; Pulse Ox 98% on 4 lpm NC; ph 08:55 Body Mass Index 17.79 (53.07 kg, 172.72 cm) ph MDM: 09:04 Patient medically screened. gs 14:50 Data reviewed: vital signs, nurses notes, old medical records, lab test result(s), EKG, gs radiologic studies. Counseling: I had a detailed discussion with the patient and/or guardian regarding: the historical points, exam findings, and any diagnostic results supporting the discharge/admit diagnosis, lab results, radiology results, the need for outpatient follow up. Response to treatment: the patient's symptoms have markedly improved after treatment, and as a result, I will discharge patient. ED course: ddx pneumonia, uti,weakness, dehydration. 04/01 09:06 Order name: Basic Metabolic Panel 04/01 09:06 Order name: CBC with Diff 04/01 09:06 Order name: LFT's 04/01 09:06 Order name: Magnesium 04/01 09:06 Order name: NT PRO-BNP; Complete Time: 10:38 04/01 09:06 Order name: PT-INR; Complete Time: 10:38 04/01 09:06 Order name: Troponin (emerg Dept Use Only); Complete Time: 10:38 04/01 09:06 Order name: XRAY Chest (1 view); Complete Time: 10:38 04/01 09:06 Order name: Lipase; Complete Time: 10:38 04/01 09:07 Order name: Basic Metabolic Panel; Complete Time: 10:38 EDMS 04/01 09:07 Order name: CBC with Automated Diff EDSD 04/01 09:07 Order name: Liver (Hepatic) Function; Complete Time: 10:38 EDMS 04/01 09:07 Order name: Magnesium; Complete Time: 10:38 EDMS 04/01 09:06 Order name: EKG; Complete Time: 09:08 04/01 09:06 Order name: Cardiac monitoring; Complete Time: 09:21 gs 04/01 09:06 Order name: EKG - Nurse/Tech; Complete Time: 09:38 04/01 09:06 Order name: IV Saline Lock; Complete Time: 09:21 04/01 09:06 Order name: Labs collected and sent; Complete Time: 09:38 04/01 09:06 Order name: O2 Per Protocol; Complete Time: 04/01 09:06 Order name: O2 Sat Monitoring; Complete Time: : EC:50 Rate is 88 beats/min. Rhythm is regular. WA interval is normal. QRS interval is gs prolonged. T waves are Normal. No ST changes noted. Clinical impression: Abnormal EKG without significant change. Interpreted by me. Administered Medications: 09:37 Drug: NS 0.9% 1000 ml Route: IV; Rate: 1 bolus; Site: left hand; ph 10:30 Follow up: Response: No adverse reaction; IV Status: Completed infusion ph 11:50 Drug: AtroVENT Aerosol 0.5 mg Route: Inhalation; ph 12:00 Follow up: Response: No adverse reaction ph 11:50 Drug: Albuterol 2.5 mg Route: Inhalation; ph 12:00 Follow up: Response: No adverse reaction ph Disposition: 04/01/19 12:14 Discharged to Home. Impression: Weakness, Anorexia, Chronic obstructive pulmonary disease with (acute) exacerbation. - Condition is Stable. - Discharge Instructions: Chronic Obstructive Pulmonary Disease, Weakness, Fatigue. - Medication Reconciliation Form, Thank You Letter, Antibiotic Education, Prescription Opioid Use form. - Follow up: Private Physician; When: 2 - 3 days; Reason: Re-evaluation by your physician. Signatures: Dispatcher [employer] Clara Urena RN RN Siri Toribio RN RN hb Starr, Gregory, MD MD Corrections: (The following items were deleted from the chart) 12:26 12:14 04/01/2019 12:14 Discharged to Home. Impression: Weakness; Anorexia; Chronic hb obstructive pulmonary disease with (acute) exacerbation. Condition is Stable. Forms are Medication Reconciliation Form, Thank You Letter, Antibiotic Education, Prescription Opioid Use. Follow up: Private Physician; When: 2 - 3 days; Reason: Re-evaluation by your physician.
--- NOTE | 2019-04-01 12:14 | ER ---
Nurse's Notes [facility] Name: Mary Estrada Age: 63 yrs Sex: Female : 1955 Arrival Date: 04/01/2019 Time: 08:52 Bed 2 Private MD: Diagnosis: Weakness;Anorexia;Chronic obstructive pulmonary disease with (acute) exacerbation Presentation: 04/01 08:54 Presenting complaint: EMS states: Pt c/o malaise and "just not feeling right" also c/o ph R side pain, denies fever, N/V/D, states, " I had a colonoscopy done last week and I haven't felt good since.". Transition of care: patient was not received from another setting of care. Onset of symptoms was April 01, 2019. Risk Assessment: Do you want to hurt yourself or someone else? Patient reports no desire to harm self or others. Initial Sepsis Screen: Does the patient meet any 2 criteria? No. Patient's initial sepsis screen is negative. Does the patient have a suspected source of infection? No. Patient's initial sepsis screen is negative. Care prior to arrival: IV initiated. 22 GA, in the left hand. 08:54 Method Of Arrival: EMS: [facility] ph 08:54 Acuity: SIMEON 3 ph Historical: - Allergies: 09:08 Morphine; ph 09:08 Sulfa (Sulfonamide Antibiotics); ph - Home Meds: 09:08 Advair Diskus Inhl [Active]; albuterol sulfate inhalation Inhl [Active]; valacyclovir ph 500 mg Oral tab 1 tab once daily [Active]; Sorine 80 mg Oral tab 1 tab [Active]; Xarelto 20 mg Oral tab 1 tab once daily [Active]; azithromycin 250 mg Oral tab [Active]; Zofran (as hydrochloride) 4 mg Oral tab [Active]; methylprednisolone 4 mg Oral tab [Active]; Mucus Relief DM oral oral [Active]; - PMHx: 09:08 Atrial Fib; COPD; non-hodgkin's lymphoma; Pneumonia; ph - Immunization history:: Adult Immunizations unknown. - Social history:: Smoking status: Patient/guardian denies using tobacco. - Ebola Screening: : No symptoms or risks identified at this time. Screenin:58 Abuse screen: Denies threats or abuse. Denies injuries from another. Nutritional hb screening: No deficits noted. Tuberculosis screening: No symptoms or risk factors identified. Fall Risk None identified. Assessment: 09:37 General: Appears in no apparent distress. comfortable, slender, Behavior is calm, ph cooperative, appropriate for age, Reports fatigue for >3 days. Pain: Complains of pain in anterior aspect of right lateral abdomen. Neuro: Level of Consciousness is awake, alert, obeys commands, Oriented to person, place, time, situation, Reports weakness in "all over". Cardiovascular: Capillary refill < 3 seconds in bilateral fingers Patient's skin is warm and dry. Respiratory: Reports cough that is Airway is patent Respiratory effort is even, unlabored, Respiratory pattern is regular, symmetrical, Breath sounds are clear bilaterally. Breath sounds are coarse in mediastinum. GI: Abdomen is flat, non-distended, Reports nausea, Patient currently denies diarrhea, vomiting. : Reports pain in right flank(s). Derm: Skin is intact, Skin is pink, warm \\T\\ dry. Musculoskeletal: Circulation, motion, and sensation intact. Range of motion: intact in all extremities. 10:30 Reassessment: Patient appears in no apparent distress at this time. Patient and/or ph family updated on plan of care and expected duration. Pain level reassessed. Patient is alert, oriented x 3, equal unlabored respirations, skin warm/dry/pink. 11:30 Reassessment: Patient appears in no apparent distress at this time. Patient and/or ph family updated on plan of care and expected duration. Pain level reassessed. Patient is alert, oriented x 3, equal unlabored respirations, skin warm/dry/pink. Vital Signs: 08:55 BP 118 / 58; Pulse 90; Resp 20; Temp 97.8; Pulse Ox 95% on R/A; Weight 53.07 kg; Height ph 5 ft. 8 in. (172.72 cm); Pain 5/10; 09:41 BP 122 / 48; Pulse 86; Resp 18; Pulse Ox 98% on 2 lpm NC; ph 11:00 BP 117 / 52; Pulse 81; Resp 18; Pulse Ox 98% on 4 lpm NC; ph 12:00 BP 118 / 60; Pulse 89; Resp 20; Temp 97.9; Pulse Ox 98% on 4 lpm NC; ph 08:55 Body Mass Index 17.79 (53.07 kg, 172.72 cm) ph ED Course: 08:52 Patient arrived in ED. ph 08:57 Rayray Khoury MD is Attending Physician. gs 08:57 Triage completed. ph 08:57 Arm band placed on. hb 08:58 Patient has correct armband on for positive identification. Bed in low position. Call hb light in reach. Side rails up X 1. 09:18 Clara Brothers RN is Primary Nurse. ph 09:30 X-ray completed. Portable x-ray completed in exam room. Patient tolerated procedure kw well. 09:30 Initial lab(s) drawn, by me, sent to lab. Maintain EMS IV. Dressing intact. Good blood ph return noted. Site clean \\T\\ dry. Gauge \\T\\ site: 20 L hand. 09:33 XRAY Chest (1 view) In Process Unspecified. EDMS 09:39 EKG done, by ED staff, reviewed by Rayray Khoury MD. em1 12:25 IV discontinued, intact, bleeding controlled, No redness/swelling at site. Pressure hb dressing applied. 12:25 No provider procedures requiring assistance completed. hb Administered Medications: 09:37 Drug: NS 0.9% 1000 ml Route: IV; Rate: 1 bolus; Site: left hand; ph 10:30 Follow up: Response: No adverse reaction; IV Status: Completed infusion ph 11:50 Drug: AtroVENT Aerosol 0.5 mg Route: Inhalation; ph 12:00 Follow up: Response: No adverse reaction ph 11:50 Drug: Albuterol 2.5 mg Route: Inhalation; ph 12:00 Follow up: Response: No adverse reaction ph Outcome: 12:14 Discharge ordered by . gs 12:24 Discharged to home via wheelchair. hb 12:24 Condition: stable 12:24 Discharge instructions given to patient, Instructed on discharge instructions, follow up and referral plans. Demonstrated understanding of instructions, follow-up care. 12:26 Patient left the ED. hb Signatures: Dispatcher [employer] EDMS Jesus Frederick em1 Cait Murillo Clara Brothers RN RN Siri Toribio RN RN Rayray Khoury MD MD gs Corrections: (The following items were deleted from the chart) 08:57 08:55 BP 118 / 58; Pulse 90bpm; Resp 20bpm; Pulse Ox 95% RA; hb hb 08:57 08:55 BP 118 / 58; Pulse 90bpm; Resp 20bpm; Pulse Ox 95% RA; 53.07 kg; Height 5 ft. 8 hb in.; BMI: 17.7; Pain 0/10; hb 09:42 08:55 BP 118 / 58; Pulse 90bpm; Resp 20bpm; Pulse Ox 95% RA; Temp 97.8F; 53.07 kg; ph Height 5 ft. 8 in.; BMI: 17.7; Pain 0/10; hb 12:25 12:24 No provider procedures requiring assistance completed. hb hb 12:25 12:24 Patient did not have IV access during this emergency room visit. hb hb
[2019-04-01 12:31] LABS: Blood Morphology Comment NOT SEEN (NOT SEEN); Platelet Estimate ADEQ; Toxic Granulation PRESENT
[2019-04-01 12:36] VITALS: TEMP 97.8
[2019-04-01 12:37] VITALS: BP 122/48; O2SAT 98
--- NOTE | 2019-04-01 20:50 | EKG ---
Test Date: 2019-04-01 Test Time: 09:20:06 [employer] Supervisor: MONIKA MEASUREMENT RESULTS: Intervals: Rate: 88 AR: 136 QRSD: 112 QT: 374 QTc: 452 [place]: P: 75 AR: 136 QRS: 69 T: 72 INTERPRETIVE STATEMENTS: Normal sinus rhythm Incomplete right bundle branch block Borderline ECG Compared to ECG 03/30/2019 14:42:18 No significant changes Electronically Signed On 04-01-19 20:49:09 CDT by Neri Burch
== END 2019-04-01 12:26 | disposition home or self-care (01) ==
LOC: ER 08:50
DX: R63.0 Anorexia (principal); J44.1 Chronic obstructive pulmonary disease with (acute) exacerbation; I48.91 Unspecified atrial fibrillation; Z79.01 Long term (current) use of anticoagulants; Z88.2 Allergy status to sulfonamides; Z88.5 Allergy status to narcotic agent; Z85.72 Personal history of non-Hodgkin lymphomas
CPT/HCPCS: 93005; 85025; 80048; 36415; 83735; 85610; 80076; 84484; 83690; 83880; 71045; 96360; 99284; J7030; J2405

== ENCOUNTER 2019-04-13 06:07 | Inpatient (IN) | payer OTHER ==
--- NOTE | 2019-04-13 06:24 | ER ---
Nurse's Notes [facility] Name: Mary Estrada Age: 63 yrs Sex: Female : 1955 Arrival Date: 04/13/2019 Time: 06:08 Bed 7 Private MD: Diagnosis: Dyspnea;Acute upper respiratory infection, unspecified;Hypoxemia Presentation: 04/13 06:14 Presenting complaint: EMS states: Pt complaining of difficulty breathing since ea yesterday evening, pt reports she has a history of COPD. EMS reports initial O2 upon arrival was 88% on O2 at 3 L per n/c, report she is normally on 3 L of O2 at home. Pt given albuterol and Atrovent treatment prior to arrival. Transition of care: patient was not received from another setting of care. Onset of symptoms was April 13, 2019. Risk Assessment: Do you want to hurt yourself or someone else? Patient reports no desire to harm self or others. Initial Sepsis Screen: Does the patient meet any 2 criteria? RR > 20 per min. Does the patient have a suspected source of infection? No. Patient's initial sepsis screen is negative. Care prior to arrival: Medication(s) given: Albuterol Neb x 1, Atrovent Neb x 1. 06:14 Method Of Arrival: EMS: [facility] ea 06:14 Acuity: SIMEON 3 ea Historical: - Allergies: 06:23 Sulfa (Sulfonamide Antibiotics); ea 06:23 Morphine; ea - Home Meds: 06:23 Zofran (as hydrochloride) 4 mg Oral tab [Active]; Xarelto 20 mg Oral tab 1 tab once ea daily [Active]; methylprednisolone 4 mg Oral tab [Active]; Sorine 80 mg Oral tab 1 tab [Active]; Mucus Relief DM Oral [Active]; albuterol sulfate inhalation Inhl [Active]; - PMHx: 06:23 Pneumonia; non-hodgkin's lymphoma; COPD; Atrial Fib; ea - Immunization history:: Adult Immunizations up to date. - Social history:: Smoking status: Patient/guardian denies using tobacco. - Family history:: not pertinent. - Ebola Screening: : No symptoms or risks identified at this time. Screenin:20 Abuse screen: Denies threats or abuse. Nutritional screening: No deficits noted. ea Tuberculosis screening:. Fall Risk None identified. Assessment: 06:12 General: Appears uncomfortable, Behavior is cooperative. General: Appears cachectic. ea Pain: Denies pain. Neuro: Level of Consciousness is awake, alert, obeys commands, Oriented to person, place, time, situation. Cardiovascular: Patient's skin is warm and dry. Respiratory: Airway is patent Respiratory effort is labored, Respiratory pattern is tachypnea Breath sounds are coarse bilaterally. GI: No signs and/or symptoms were reported involving the gastrointestinal system. : No signs and/or symptoms were reported regarding the genitourinary system. Derm: Skin is dry, Skin is pale, Skin temperature is warm. 07:07 Reassessment: Patient appears in no apparent distress at this time. Patient and/or sg family updated on plan of care and expected duration. Pain level reassessed. Patient is alert, oriented x 3, equal unlabored respirations, skin warm/dry/pink. awaiting a bed assignment at this time, pt remains in stable condition at this time. 08:52 Reassessment: Patient and/or family updated on plan of care and expected duration. Pain hj level reassessed. Patient is alert, oriented x 3, equal unlabored respirations, skin warm/dry/pink. eating breakfast at bedside; Patient states feeling better. Patient states symptoms have improved. Vital Signs: 06:12 BP 103 / 63; Pulse 78; Resp 26; Temp 98.1; Pulse Ox 92% on 3 lpm NC; Weight 52.62 kg; ea Height 5 ft. 8 in. (172.72 cm); 08:52 BP 107 / 54; Pulse 76; Resp 18; Pulse Ox 96% on 2 lpm NC; hj 06:12 Body Mass Index 17.64 (52.62 kg, 172.72 cm) ea ED Course: 06:08 Patient arrived in ED. rr5 06:09 Suresh Boucher MD is Attending Physician. fernando 06:13 Patient has correct armband on for positive identification. Placed in gown. Bed in low ea position. Call light in reach. Side rails up X2. 06:13 Arm band placed on right wrist. Patient placed in an exam room, on a stretcher, on ea oxygen, on awake overnight monitor, on pulse oximetry. 06:20 Triage completed. ea 06:20 Inserted saline lock: 22 gauge in right forearm, using aseptic technique. Blood rr5 collected. 06:20 Initial lab(s) drawn, by me, sent to lab. First set of blood cultures drawn by me. rr5 Oxygen administration via nasal cannula \T\ 3L/min Response to oxygen therapy: symptoms improved. 06:22 Sylvia Waters MD is Hospitalizing Provider. fernando 06:49 XRAY Chest (1 view) In Process Unspecified. EDMS 06:50 Inserted saline lock: 20 gauge in left forearm, using aseptic technique. Blood rr5 collected. 06:50 Second set of blood cultures drawn by me. rr5 06:51 Everette Amezquita DO is Hospitalizing Provider. fernando 06:55 Jeri Tilley MD is Hospitalizing Provider. fernando 06:57 Patient admitted, IV remains in place. ea 07:02 Keith Cuenca, CURTIS is Primary Nurse. sg 09:36 No provider procedures requiring assistance completed. hj Administered Medications: 06:26 Drug: AtroVENT Aerosol 0.5 mg Route: Inhalation; ea 06:27 Drug: Xopenex 3.75 mg Route: Inhalation; ea 06:47 Drug: SOLU-Medrol 125 mg Route: IVP; Site: right forearm; ea 07:10 Follow up: Response: No adverse reaction hj 06:48 Drug: NS 0.9% 500 ml Route: IV; Rate: bolus; Site: right forearm; ea 07:09 Follow up: IV Status: Completed infusion hj 06:48 Drug: NS 0.9% 1000 ml Route: IV; Rate: 125 ml/hr; Site: right forearm; ea 07:10 Follow up: IV Status: Completed infusion hj 06:48 Drug: Rocephin - (cefTRIAXone) 1 grams Route: IVPB; Infused Over: 30 mins; Site: right ea forearm; 07:01 Follow up: Response: No adverse reaction; IV Status: Completed infusion; IV Intake: ea 10ml ; Medication given IV push per pharmacy protocol 07:02 Drug: levofloxacin 500 mg Volume: 100 ml; Route: IVPB; Infused Over: 60 mins; Site: ea right forearm; 07:09 Follow up: IV Status: Completed infusion hj Intake: 07:01 IV: 10ml; Total: 10ml. ea Outcome: 06:23 Decision to Hospitalize by Provider. fernando 06:56 Instructed on the need for admit. ea 09:36 Admitted to Tele accompanied by tech, via wheelchair, room 417, with oxygen, with kirt chart, Report called to CURTIS Acuña 09:36 Condition: stable 09:38 Patient left the ED. kirt Signatures: Dispatcher [employer] EDMS Keith Cuenca, RN Suresh Bonilla MD MD cha Joaquin, Henry, RN RN hj Antunez, Elena, RN RN ea Roque, Raymond RN RN rr5
--- NOTE | 2019-04-13 06:24 | EDPHYS ---
Physician Documentation [facility] Name: Mary Estrada Age: 63 yrs Sex: Female : 1955 Arrival Date: 04/13/2019 Time: 06:08 Bed 7 Private MD: ED Physician Suresh Boucher HPI: 04/13 06:16 This 63 yrs old Female presents to ER via Unassigned with complaints of sob, fernando copd and hypoxia. 06:16 The patient has shortness of breath at rest, with light activity. Onset: The fernando symptoms/episode began/occurred yesterday. The patient's shortness of breath has no apparent modifying factors. Onset: The symptoms/episode began/occurred 2 day(s) ago. Modifying factors: The symptoms are alleviated by nothing. the symptoms are aggravated by nothing. Associated signs and symptoms: Pertinent positives: productive cough. Severity of symptoms: At their worst the symptoms were moderate in the emergency department the symptoms are unchanged. Historical: - Allergies: 06:23 Sulfa (Sulfonamide Antibiotics); ea 06:23 Morphine; ea - Home Meds: 06:23 Zofran (as hydrochloride) 4 mg Oral tab [Active]; Xarelto 20 mg Oral tab 1 tab once ea daily [Active]; methylprednisolone 4 mg Oral tab [Active]; Sorine 80 mg Oral tab 1 tab [Active]; Mucus Relief DM Oral [Active]; albuterol sulfate inhalation Inhl [Active]; - PMHx: 06:23 Pneumonia; non-hodgkin's lymphoma; COPD; Atrial Fib; ea - Immunization history:: Adult Immunizations up to date. - Social history:: Smoking status: Patient/guardian denies using tobacco. - Family history:: not pertinent. - Ebola Screening: : No symptoms or risks identified at this time. ROS: 06:16 Constitutional: Negative for fever, chills, and weight loss, Eyes: Negative for injury, fernando pain, redness, and discharge, ENT: Negative for injury, pain, and discharge, Neck: Negative for injury, pain, and swelling, Cardiovascular: Negative for chest pain, palpitations, and edema, Abdomen/GI: Negative for abdominal pain, nausea, vomiting, diarrhea, and constipation, Back: Negative for injury and pain, : Negative for injury, bleeding, discharge, and swelling, MS/Extremity: Negative for injury and deformity, Skin: Negative for injury, rash, and discoloration, Neuro: Negative for headache, weakness, numbness, tingling, and seizure, Psych: Negative for depression, anxiety, suicide ideation, homicidal ideation, and hallucinations, Allergy/Immunology: Negative for hives, rash, and allergies, Endocrine: Negative for neck swelling, polydipsia, polyuria, polyphagia, and marked weight changes, Hematologic/Lymphatic: Negative for swollen nodes, abnormal bleeding, and unusual bruising. 06:16 Respiratory: Positive for cough, shortness of breath, on exertion. Exam: 06:16 Constitutional: This is a well developed, well nourished patient who is awake, alert, fernando and in no acute distress. Head/Face: Normocephalic, atraumatic. Eyes: Pupils equal round and reactive to light, extra-ocular motions intact. Lids and lashes normal. Conjunctiva and sclera are non-icteric and not injected. Cornea within normal limits. Periorbital areas with no swelling, redness, or edema. ENT: Nares patent. No nasal discharge, no septal abnormalities noted. Tympanic membranes are normal and external auditory canals are clear. Oropharynx with no redness, swelling, or masses, exudates, or evidence of obstruction, uvula midline. Mucous membranes moist. Neck: Trachea midline, no thyromegaly or masses palpated, and no cervical lymphadenopathy. Supple, full range of motion without nuchal rigidity, or vertebral point tenderness. No Meningismus. Chest/axilla: Normal chest wall appearance and motion. Nontender with no deformity. No lesions are appreciated. Cardiovascular: Regular rate and rhythm with a normal S1 and S2. No gallops, murmurs, or rubs. Normal PMI, no JVD. No pulse deficits. Abdomen/GI: Soft, non-tender, with normal bowel sounds. No distension or tympany. No guarding or rebound. No evidence of tenderness throughout. Back: No spinal tenderness. No costovertebral tenderness. Full range of motion. Female : Normal external genitalia. Skin: Warm, dry with normal turgor. Normal color with no rashes, no lesions, and no evidence of cellulitis. MS/ Extremity: Pulses equal, no cyanosis. Neurovascular intact. Full, normal range of motion. Neuro: Awake and alert, GCS 15, oriented to person, place, time, and situation. Cranial nerves II-XII grossly intact. Motor strength 5/5 in all extremities. Sensory grossly intact. Cerebellar exam normal. Normal gait. Psych: Awake, alert, with orientation to person, place and time. Behavior, mood, and affect are within normal limits. 06:16 Respiratory: mild respiratory distress is noted, Respirations: normal, Breath sounds: bronchial sounds, decreased breath sounds, rhonchi, wheezing: inspiratory expiratory Vital Signs: 06:12 BP 103 / 63; Pulse 78; Resp 26; Temp 98.1; Pulse Ox 92% on 3 lpm NC; Weight 52.62 kg; ea Height 5 ft. 8 in. (172.72 cm); 08:52 BP 107 / 54; Pulse 76; Resp 18; Pulse Ox 96% on 2 lpm NC; hj 06:12 Body Mass Index 17.64 (52.62 kg, 172.72 cm) ea MDM: 06:09 Patient medically screened. [facility] 06:20 Data reviewed: vital signs, nurses notes, lab test result(s), EKG, radiologic studies, fernando plain films. 04/13 06:15 Order name: Basic Metabolic Panel [facility] 04/13 06:15 Order name: CBC with Diff [facility] 04/13 06:15 Order name: LFT's [facility] 04/13 06:15 Order name: Magnesium [facility] 04/13 06:15 Order name: NT PRO-BNP [facility] 04/13 06:15 Order name: PT-INR [facility] 04/13 06:15 Order name: Troponin (emerg Dept Use Only); Complete Time: 07:23 [facility] 04/13 06:15 Order name: Lipase; Complete Time: 07:23 [facility] 04/13 06:15 Order name: Blood Culture Adult (2) [facility] 04/13 06:15 Order name: Urine Culture [facility] 04/13 06:15 Order name: Lactate [facility] 04/13 06:17 Order name: Basic Metabolic Panel; Complete Time: 07:23 [facility] 04/13 06:17 Order name: CBC with Automated Diff [facility] 04/13 06:17 Order name: Liver (Hepatic) Function; Complete Time: 07:23 EDMS 04/13 06:15 Order name: XRAY Chest (1 view) [facility] 04/13 06:15 Order name: EKG; Complete Time: 06:18 [facility] 04/13 06:15 Order name: Cardiac monitoring; Complete Time: 06:25 [facility] 04/13 06:15 Order name: EKG - Nurse/Tech; Complete Time: 06:25 [facility] 04/13 06:17 Order name: Magnesium; Complete Time: 07:23 EDMS 04/13 06:17 Order name: NT PRO-BNP; Complete Time: 07:23 EDMS 04/13 06:17 Order name: Protime (+INR); Complete Time: 07:08 [facility] 04/13 07:59 Order name: Manual Differential [facility] 04/13 08:18 Order name: Diet Heart Healthy; Complete Time: 08:19 04/13 06:15 Order name: IV Saline Lock; Complete Time: 06:38 [facility] 04/13 06:15 Order name: Labs collected and sent; Complete Time: 06:38 [facility] 04/13 06:15 Order name: O2 Per Protocol; Complete Time: 06:38 [facility] 04/13 06:15 Order name: O2 Sat Monitoring; Complete Time: 06:38 [facility] Administered Medications: 06:26 Drug: AtroVENT Aerosol 0.5 mg Route: Inhalation; ea 06:27 Drug: Xopenex 3.75 mg Route: Inhalation; ea 06:47 Drug: SOLU-Medrol 125 mg Route: IVP; Site: right forearm; ea 07:10 Follow up: Response: No adverse reaction hj 06:48 Drug: NS 0.9% 500 ml Route: IV; Rate: bolus; Site: right forearm; ea 07:09 Follow up: IV Status: Completed infusion hj 06:48 Drug: NS 0.9% 1000 ml Route: IV; Rate: 125 ml/hr; Site: right forearm; ea 07:10 Follow up: IV Status: Completed infusion hj 06:48 Drug: Rocephin - (cefTRIAXone) 1 grams Route: IVPB; Infused Over: 30 mins; Site: right ea forearm; 07:01 Follow up: Response: No adverse reaction; IV Status: Completed infusion; IV Intake: ea 10ml ; Medication given IV push per pharmacy protocol 07:02 Drug: levofloxacin 500 mg Volume: 100 ml; Route: IVPB; Infused Over: 60 mins; Site: ea right forearm; 07:09 Follow up: IV Status: Completed infusion Disposition: 04/13/19 06:23 Hospitalization ordered by Jeri Tilley for Inpatient Admission. Preliminary diagnosis are Dyspnea, Acute upper respiratory infection, unspecified, Hypoxemia. - Bed requested for Telemetry/MedSurg (Inpatient). - Status is Inpatient Admission. hj - Condition is Fair. - Problem is new. - Symptoms have improved. UTI on Admission? No Signatures: Dispatcher [employer] EDSuresh Raza MD MD cha Joaquin, Henry, RN RN hj Antunez, Elena, RN RN ea Starr, Gregory, MD MD gs Botello, Elizabeth eb Corrections: (The following items were deleted from the chart) 06:51 06:23 Hospitalization Ordered by Sylvia Waters MD for Inpatient Admission. Preliminary [facility] diagnosis is Dyspnea; Acute upper respiratory infection, unspecified; Hypoxemia. Bed requested for Telemetry/MedSurg (Inpatient). Status is Inpatient Admission. Condition is Fair. Problem is new. Symptoms have improved. UTI on Admission? No. fernando 06:55 06:51 04/13/2019 06:23 Hospitalization Ordered by Everette Amezquita DO for Inpatient fernando Admission. Preliminary diagnosis is Dyspnea; Acute upper respiratory infection, unspecified; Hypoxemia. Bed requested for Telemetry/MedSurg (Inpatient). Status is Inpatient Admission. Condition is Fair. Problem is new. Symptoms have improved. UTI on Admission? No. fernando 08:54 06:55 04/13/2019 06:23 Hospitalization Ordered by Jeri Tilley MD for Inpatient eb Admission. Preliminary diagnosis is Dyspnea; Acute upper respiratory infection, unspecified; Hypoxemia. Bed requested for Telemetry/MedSurg (Inpatient). Status is Inpatient Admission. Condition is Fair. Problem is new. Symptoms have improved. UTI on Admission? No. fernando 09:38 08:54 04/13/2019 06:23 Hospitalization Ordered by Jeri Tilley MD for Inpatient hj Admission. Preliminary diagnosis is Dyspnea; Acute upper respiratory infection, unspecified; Hypoxemia. Bed requested for Telemetry/MedSurg (Inpatient). Status is Inpatient Admission. Condition is Fair. Problem is new. Symptoms have improved. UTI on Admission? No. eb
[2019-04-13] MEDS ORDERED: Levofloxacin500mg IV 500 MG/100 ML BAG IV ONE (06:34)
[2019-04-13] MEDS ORDERED: LEVALBUTEROL 1.25 MG/3 ML NEB ONE (06:34)
[2019-04-13] MEDS ORDERED: METHYLPREDNISOLONE 125 MG INJ ONE (06:34)
[2019-04-13] MEDS ORDERED: IPRATROPIUM BROM 0.5MG/2.5ML ONE (06:34)
[2019-04-13] MEDS ORDERED: CEFTRIAXONE 1000 MG/VIAL ONE (06:34)
[2019-04-13] MEDS ORDERED: NA CHLORIDE 0.9% 500 ML ONE (06:35)
[2019-04-13] MEDS ORDERED: NA CHLORIDE 0.9% 50 ML IV ONE (06:35)
[2019-04-13] MEDS ORDERED: NA CHLORIDE 0.9% 1,000 ML ONE (06:35)
[2019-04-13 06:55] LABS: Absolute Lymphocytes (CBC) 0.2 K/uL (0.7-4.9); Basophils % 0.3 % (0-1.3); Eosinophils % 0.1 % (0-4.4); Hematocrit 33.6 % (36.0-45.0); Lymphocytes % 3.9 % (15.3-44.8); MPV 7.9 fL (7.6-11.3); Monocytes % 6.2 % (3.3-12.3); RBC Red Blood Cell Count 3.62 M/uL (3.86-4.86)
[2019-04-13 06:56] LABS: Protime INR 1.54
[2019-04-13 07:21] LABS: ALT/SGPT 41 U/L (12-78); AST/SGOT 31 U/L (15-37); Albumin 2.9 g/dL (3.4-5.0); Alkaline Phosphatase 77 U/L (45-117); BUN Blood Urea Nitrogen 20 mg/dL (7-18); Bicarbonate 28 mmol/L (21-32); Bilirubin Direct 0.2 mg/dL (0-0.2); Bilirubin Total 0.8 mg/dL (0.2-1.0); Glucose Level 87 mg/dL (74-106); Lipase 267 U/L (73-393); NT PRO-BNP 372 pg/mL (<125); Potassium 4.1 mmol/L (3.5-5.1); Sodium Level 140 mmol/L (136-145); Troponin (Emerg Dept Use Only) < 0.02 ng/mL (0.0-0.045)
--- NOTE | 2019-04-13 07:56 | RAD REPORT ---
EXAM DESCRIPTION: Osmany Single View04/13/2019 6:52 am CLINICAL HISTORY: Shortness of breath COMPARISON: April 01, 2019 FINDINGS: No significant change in the bibasilar atelectasis/reticulonodular opacities Lungs are hyperaerated. Heart is mildly enlarged
[2019-04-13 07:59] LABS: Blood Morphology Comment NOT SEEN (NOT SEEN); Platelet Estimate ADEQ
--- NOTE | 2019-04-13 08:25 | EKG ---
Test Date: 2019-04-13 Test Time: 06:11:58 Etymology Professor: RR MEASUREMENT RESULTS: Intervals: Rate: 71 IA: 132 QRSD: 110 QT: 418 QTc: 454 [place]: P: 81 IA: 132 QRS: 72 T: 70 INTERPRETIVE STATEMENTS: Normal sinus rhythm Incomplete right bundle branch block Borderline ECG Compared to ECG 04/01/2019 09:20:06 No significant changes Electronically Signed On 04-13-19 08:24:42 CDT by Thad Bird
[2019-04-13] MEDS ORDERED: ONDANSETRON 4 MG/2 ML VIAL IV PRN (09:41)
[2019-04-13] MEDS ORDERED: ACETAMINOPHEN 500 MG TAB PO PRN (09:41)
[2019-04-13] MEDS ORDERED: TIOTROPIUM BR IH PRN (10:44)
[2019-04-13] MEDS ORDERED: OLODATEROL HCL IH PRN (10:44)
[2019-04-13] MEDS: GUAIFENESIN/CODEINE 5ML UCUP PO PRN (11:26)
[2019-04-13] MEDS: METHYLPREDNISOLONE 40 MG INJ IV SCH ×2 (11:26→16:51)
--- NOTE | 2019-04-13 11:57 | RAD REPORT ---
EXAM DESCRIPTION: CT - [facility] - 04/13/2019 11:46 am CLINICAL HISTORY: Pneumonia, COPD, shortness of breath, history of non-Hodgkin's lymphoma COMPARISON: Chest exam April 13, CT chest January 2019 TECHNIQUE: Axial 5 mm thick images of the chest were obtained without IV contrast. All CT scans are performed using dose optimization technique as appropriate and may include automated exposure control or mA/KV adjustment according to patient size. FINDINGS: In the posterior and inferior aspect of the hyperexpanded right upper lobe there are multi ple reticulonodular opacities present new from the January study. Interstitial and patchy alveolar opac ities in the expanded right middle lobe also present. These areas are new from the January examination. Patient has complete atelectasis of the right lower lobe. There is some patchy aeration in the bronc hial structures of the right lower lobe and the right lower lobe bronchus obstruction seen on the amina or study has cleared. There has been no re-expansion of the right lower lobe. Left upper lobe is linnette r of any significant finding. Very small areas of nodularity are present. Moderate-sized area of alve olar and interstitial opacification present in the posterior base left lower lobe. This is only fract ionally improved from January. Patient has overall bilateral bronchial wall thickening. No additional a reas of endobronchial occlusion or endobronchial lesion. No pleural thickening or pleural effusion. No pneumothorax. No abnormal mediastinal or hilar masses or lymphadenopathy seen. No gross aortic or pulmonary artery finding suspected. Assessment is limited in the absence of IV contrast. No pericardial thickening or effusion. No chest wall mass or abnormal axillary lymphadenopathy. IMPRESSION: Reticulonodular opacification in the posterior inferior right upper lobe and scattered t hroughout the right middle lobe. These are new from January, most likely areas of patchy pneumonia/ pne umonitis. More moderate areas of interstitial and airspace opacification at the base of the left lower lobe sandy ws very fractional improvement from January. Complete right lower lobe atelectasis. There has been partial clearing of the lobar and segmental bro nchi since January but no re-expansion of the lobe.
[2019-04-13] MEDS ORDERED: Levofloxacin 750mg IV 750 MG/150 ML BAG IV SCH (12:00)
[2019-04-13] MEDS: FLUCONAZOLE 200mg IVPB 200 MG/100 ML BAG IV SCH (13:12)
[2019-04-13] MEDS: ALBUTEROL 2.5 MG/3 ML NEB SOL NEB SCH ×2 (14:05→19:55)
[2019-04-13] MEDS: IPRATROPIUM BROM 0.5MG/2.5ML NEB SCH ×2 (14:05→19:55)
[2019-04-13 16:31] LABS: Urine Appearance CLOUDY; Urine Bilirubin NEGATIVE (NEG); Urine Blood NEGATIVE (NEG); Urine Color YELLOW; Urine Glucose 3+ (NEG); Urine Protein TRACE (NEG); Urine Specific Gravity 1.025 (1.005-1.030); Urine Urobilinogen 0.2 mg/dL (0.2-1.0); Urine pH 5.5 (5.0-7.0)
[2019-04-13 16:33] LABS: Urine Microscopic Reflex ORDER UMIC
[2019-04-13 16:41] LABS: Urine Bacteria <20 /HPF (<20); Urine Culture Reflex Order NOT NEEDED; Urine Mucus 2+ /HPF (NONE SEEN); Urine RBC <5 /HPF (NONE SEEN)
[2019-04-13] MEDS: RIVAROXABAN 20 MG TABLET PO SCH (16:51)
[2019-04-13] MEDS: SOTALOL HCL 80 MG TAB PO SCH (22:29)
[2019-04-13] MEDS: ENSURE ENLIVE 237 ML CAN PO SCH (22:29)
--- NOTE | 2019-04-14 00:27 | HP ---
Date of Admission: 04/13/2019 Chief Complaint: Shortness of breath. Code Status: Full. Chiropractic Teacher: Dr. Waters, Pulmonology. 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 The patient has been having worsening shortness of breath, cough with sputum production and re ports generalized weakness and malaise. The patient's symptoms are constant, moderate, progressively worsening. Symptoms worse with activity. The patient therefore came back to the ER for further thomas luation. In the ER, her workup revealed hypoxia. The patient was placed on 3 L of oxygen via nasal cannula. The patient's chest x-ray showed opacities and the patient was given dose of Levaquin and t hen referred for admission. When seen in the ER, she was awake, alert, oriented x3, in some mild dis tress. Past Medical History: COPD with chronic respiratory failure, atrial fibrillation on anticoagulation, gastroesophageal reflux disease, lymphoma stage IV, non-Hodgkin's, currently in remission. Surgical History: Tonsillectomy, , left wrist repair, biopsy for lymphoma. Allergies: TO MORPHINE AND SULFA. Medications: List reviewed. Social History: The patient is , has a daughter. Works at a local [employer]. The patient denies any tobacco use. Drinks alcohol socially. No illicit drug use. Independent in her a ctivities of daily living. Family History: Father had heart disease as well. Mom had heart disease, hypertension, diabetes. B rother had cancer and sister who also had unknown type of cancer. Review of Systems: Ten-point system reviewed, negative except as per HPI. Physical Examination: Vital Signs: Temperature 98.1, heart rate 78, blood pressure 103/63, respirations 26, O2 92% on 3 L via nasal cannula. General: Awake, alert, oriented x3. Elderly female, frail, cachectic. BMI 17.6. In mild respirato ry distress. HEENT: Normocephalic, atraumatic. PERRLA. EOMI. Moist mucous membranes. Oropharynx is clear. Co njunctivae are anicteric. Neck: Supple. No JVD. Trachea midline. CV: S1, S2. Peripheral pulses present. Irregularly irregular. Respiratory: Diminished breath sounds. The patient is tachypneic with use of accessory muscles. Mi nimal wheezing. No stridor. Rhonchi heard. Gastrointestinal: Abdomen is soft, nontender, nondistended. Positive bowel sounds. No guarding or rigidity. Extremities: No clubbing, cyanosis, or edema. No calf tenderness. Neuro: Cranial nerves 2-12 intact grossly. No focal neurological deficit. Speech is normal. Stren gth is symmetric in bilateral upper and lower extremities. Skin: No rashes. Normal skin turgor. Psych: Mood is depressed. Affect is congruent with mood. Insight and judgment are fair. Laboratory Data: Sodium 140, potassium 4.1, chloride 103, CO2 28, BUN 20, creatinine 0.53, glucose 8 7, lactate 2.1. Repeat lactate is 1.4. Calcium 9.1, magnesium 2. Troponin less than 0.02. BNP 372 . INR 1.54. WBC 4, H and H 10.9 and 33.6, platelets 226, neutrophils 89%. CT scan of the chest sandy ws reticulonodular opacification in the posterior inferior right upper lobe and scattered throughout the right middle lobe. These are new from January, most likely areas of patchy pneumonia or pneumoniti s. More moderate areas of interstitial and airspace opacification at the base of the left lower lobe shows very fractional improvement from January, complete right lower lobe atelectasis. There has been partial clearing of the lobar and segmental bronchi since January, but no re-expansion of the lobe. C hest x-ray, personally reviewed. No significant change in the bibasilar atelectasis or reticulonodul ar opacities. Lungs are hyperaerated. Heart is mildly enlarged. Assessment And Plan: A 63-year-old female with: 1.Acute on chronic respiratory failure. The patient is requiring 3 L of oxygen via nasal cannula se condary to COPD and pneumonia. Appreciate Pulmonology input. Dr. Waters has been consulted. We w ill place her on continuous O2 monitoring. 2.Pneumonia, left lower lobe, mildly improved from previous, new right upper lobe opacity. The latanya ent may have a fungal infection. We will cover with Diflucan. Resume Levaquin. CT chest, personall y reviewed. 3.COPD with chronic bronchitis. We will continue breathing treatments and steroids. 4.GERD without esophagitis. Continue PPI. 5.History of non-Hodgkin's lymphoma, currently in remission. Follows with Oncology outpatient. 6.Atrial fibrillation, on Xarelto. Admit the patient to med-surg, place as inpatient. Length of stay, greater than 2 midnights. Overal l prognosis is poor. The patient is cachectic, BMI 17. We will consult dietitian. /MIGUEL A Voice ID: [id number]
[2019-04-14] MEDS: ALBUTEROL 2.5 MG/3 ML NEB SOL NEB SCH ×2 (01:15→06:40)
[2019-04-14] MEDS: IPRATROPIUM BROM 0.5MG/2.5ML NEB SCH ×6 (01:15→20:00)
[2019-04-14] MEDS: METHYLPREDNISOLONE 40 MG INJ IV SCH ×2 (02:12→09:07)
[2019-04-14] MEDS: PANTOPRAZOLE 40MG TABLET PO SCH (05:35)
[2019-04-14 06:09] LABS: RBC Red Blood Cell Count 3.35 M/uL (3.86-4.86)
[2019-04-14 06:10] LABS: Absolute Lymphocytes (CBC) 0.1 K/uL (0.7-4.9); Basophils % 0.2 % (0-1.3); Hematocrit 30.7 % (36.0-45.0); Lymphocytes % 4.1 % (15.3-44.8); Monocytes % 4.5 % (3.3-12.3)
[2019-04-14 06:16] LABS: BUN Blood Urea Nitrogen 21 mg/dL (7-18); Bicarbonate 28 mmol/L (21-32); Glucose Level 179 mg/dL (74-106); Potassium 3.9 mmol/L (3.5-5.1); Sodium Level 142 mmol/L (136-145)
[2019-04-14] MEDS ORDERED: Levofloxacin 750mg IV 750 MG/150 ML BAG IV SCH (09:00)
[2019-04-14] MEDS: SOTALOL HCL 80 MG TAB PO SCH ×2 (09:07→20:40)
[2019-04-14] MEDS: VALACYCLOVIR 500 MG TAB PO SCH (09:07)
[2019-04-14] MEDS: ENSURE ENLIVE 237 ML CAN PO SCH ×2 (09:09→20:40)
[2019-04-14 09:13] LABS: Blood Morphology Comment NOT SEEN (NOT SEEN); Platelet Estimate ADEQ; Toxic Granulation 1+
[2019-04-14] MEDS ORDERED: ALBUTEROL 2.5 MG/3 ML NEB SOL NEB PRN (10:56)
--- NOTE | 2019-04-14 10:57 | P.CNS ---
Date of Consult: 04/14/19 Chief Complaint: Shortness of breath and productive cough History of Present Illness: Patient is 63 years of age well known to me has had frequent hospitalizations was seen in my office last week patient was prescribed levofloxacin she was discharged home on doxycycline from a [facility] and I had stopped the Zithromax ordered a chest x-ray she gets been coughing up some productive phlegm became worse more shortness of breath and slight fever came to the hospital feeling very weak losing weight Allergies morphine Allergy (Verified 12/04/18 15:48) HALLUCINATIONS Sulfa (Sulfonamide Antibiotics) Allergy (Verified 12/04/18 15:48) UNK Home Medications: Benzonatate [Tessalon Perle] 100 mg PO Q8H PRN 04/13/19 Doxycycline Hyclate 100 mg PO BID 04/13/19 Levofloxacin [Levaquin] 500 mg PO Q24H 04/13/19 Ondansetron [Zuplenz] 4 mg PO Q12H PRN 04/13/19 Pantoprazole [Protonix Tab*] 1 tab PO DAILY 04/13/19 Rivaroxaban [Xarelto*] 20 mg PO DAILY 04/13/19 Sotalol HCl [Sorine] 80 mg PO BID 04/13/19 Tiotropium Br/Olodaterol HCl [Stiolto Respimat Inhal Tribune] 2.5 mcg IH BID PRN 04/13/19 Valacyclovir [Valtrex*] 1 tab PO DAILY 04/13/19 methylPREDNISolone [Methylprednisolone] 4 mg PO DAILY 04/13/19 - Past Medical/Surgical History Diabetic: No -: COPD -: Non Hodgkins Lymphoma -: Atrial fibrillation on chronic anti coagulation therapy -: Atrial fibrillation on chronic anti coagulation therapy -: Tonsillectomy -: -: Left wrist repair -: sinus sx Psychosocial/ Personal History: She is . She has 1 child. She works at a local [employer]. - Family History Father Medical History: Heart disease Mother Medical History: Heart disease, Hypertension, Diabetes Brother Medical History: Cancer Sister Medical History: Cancer - Social History Alcohol use: No CD- Drugs: No Caffeine use: Yes Place of Residence: Home Review of Systems General: Weakness, Malaise Respiratory: Cough, Shortness of Breath Neurological: Weakness Physical Examination Temp Pulse Resp BP Pulse Ox 98.8 F 73 18 139/65 92 04/14/19 08:00 04/14/19 08:00 04/14/19 08:00 04/14/19 08:00 04/14/19 08:00 General: Alert, Oriented x3, Mild distress Neck: Supple Respiratory: Expiratory wheezes Cardiovascular: No edema, Normal S1 S2 Gastrointestinal: Normal bowel sounds, Soft and benign Musculoskeletal: No clubbing, No swelling - Problems (1) COPD exacerbation Current Visit: No Status: Acute Plan: Patient is 63 years of age with terminal COPD has been progressively declining failure to thrive not eating progressive wasting multiple hospitalization was recently discharged from [facility] CT scan shows chronic right lower lobe atelectasis bronchoscopy did not show any obstruction no obvious pneumonia so far cultures are negative white count is normal she is high risk for a fungus infection I recommend empiric anti fungal therapy ovoid broad-spectrum antibiotics unless based on culture results vital signs are satisfactory oxygenation is also satisfactory patient is fully anti coagulated medications reviewed Dc albuterol scheduled changed to Atrovent q. 6 scheduled Dc IV Solu- Medrol change to p.o. prednisone change to p.o.. Diflucan overall prognosis very poor
[2019-04-14] MEDS: FLUCONAZOLE 200mg IVPB 200 MG/100 ML BAG IV SCH (12:42)
[2019-04-14] MEDS: GUAIFENESIN/CODEINE 5ML UCUP PO PRN (12:42)
[2019-04-14] MEDS: ARFORMOTEROL TARTRATE 15 MCG/2 ML VIAL.NEB NEB SCH ×2 (12:45→20:00)
--- NOTE | 2019-04-14 15:31 | PN ---
Date of Progress Note: 04/14/2019 Subjective: The patient seen and examined. Chart reviewed and case discussed with RN. The patient states she is feeling slightly better; however, continues to have significant amount of cough, sputum production. Currently still on oxygen. Medications: List reviewed. Physical Examination: Vital Signs: Temperature 98.8, heart rate 73, blood pressure 139/65, respirations 18, O2 92% on 3 L via nasal cannula. General: Awake, alert, oriented x3. Some mild distress, frail, cachectic female. CV: S1 and S2. Regular rate and rhythm. Peripheral pulses present. Respiratory: Diminished breath sounds. Rhonchi heard. No wheezing or stridor. Gastrointestinal: Abdomen is soft, nontender, nondistended. Positive bowel sounds. Extremities: No clubbing, cyanosis, or edema. Neurologic: Nonfocal. Laboratory Data: Sodium 142, potassium 3.9, chloride 106, CO2 28, BUN 21, creatinine 0.42, glucose 1 79, calcium 8.6. WBC 2.1, H and H 10.1 and 38.7, platelets 176, neutrophils 91%, 7% bands. Blood cu ltures, no growth to date. Sputum cultures pending. Assessment And Plan: A 63-year-old female with: 1.Acute on chronic respiratory failure. The patient currently on 3 L via nasal cannula secondary to chronic obstructive pulmonary disease and pneumonia. Pulmonology on board. Continue monitoring pul se ox. 2.Pneumonia, left lower lobe and right upper lobe opacity seen on CT scan. Possible fungal pneumoni a, gram-negative pneumonia. The patient will be covered with Diflucan and Levaquin. Blood cultures, no growth to date. Sputum cultures pending. The patient continues to have significant cough and sp utum production. 3.Chronic obstructive pulmonary disease, chronic bronchitis. Continue with breathing treatments. C ontinue steroids. The patient is normally only on 2 L via nasal cannula, currently at 3 L. 4.Gastroesophageal reflux disease without esophagitis. We will continue PPI. 5.History of non-Hodgkin's lymphoma, currently in remission. Follow up with Oncology as outpatient. 6.Atrial fibrillation, paroxysmal. Continue Xarelto. 7.Failure to thrive, BMI 17. Dietitian consultation and protein supplementation. 8.Disposition: Likely discharge home in 48 to 72 hours depending on clinical response and culture r esults. SA/MODL Voice ID: [id number] Report ID: [id number]
[2019-04-14] MEDS: RIVAROXABAN 20 MG TABLET PO SCH (16:55)
[2019-04-14] MEDS: predniSONE 20 MG TAB PO SCH (20:40)
[2019-04-14 20:42] VITALS: O2SAT 95
[2019-04-15] MEDS: IPRATROPIUM BROM 0.5MG/2.5ML NEB SCH ×6 (02:00→20:00)
[2019-04-15] MEDS: PANTOPRAZOLE 40MG TABLET PO SCH (06:10)
[2019-04-15] MEDS: ARFORMOTEROL TARTRATE 15 MCG/2 ML VIAL.NEB NEB SCH ×2 (09:05→20:00)
[2019-04-15] MEDS: SOTALOL HCL 80 MG TAB PO SCH ×2 (10:06→21:42)
[2019-04-15] MEDS: predniSONE 20 MG TAB PO SCH ×2 (10:06→21:42)
[2019-04-15] MEDS: VALACYCLOVIR 500 MG TAB PO SCH (10:07)
[2019-04-15] MEDS: ENSURE ENLIVE 237 ML CAN PO SCH ×4 (10:07→21:48)
[2019-04-15] MEDS: GUAIFENESIN/CODEINE 5ML UCUP PO PRN (12:25)
[2019-04-15] MEDS: FLUCONAZOLE 200mg IVPB 200 MG/100 ML BAG IV SCH (12:25)
[2019-04-15] MEDS: ALBUTEROL 2.5 MG/3 ML NEB SOL NEB PRN (12:40)
[2019-04-15] MEDS: RIVAROXABAN 20 MG TABLET PO SCH (17:03)
--- NOTE | 2019-04-15 18:25 | PN ---
Date of Progress Note: 04/15/2019 Subjective: Patient seen and examined. Chart reviewed and case discussed with RN. The patient stat es she feels a little bit better today, still having significant amount of cough. Case discussed mitch Waters. Medications: Medication list reviewed. Physical Examination: Vital Signs: Temperature 97.8, heart rate 69, blood pressure 125/59, respirations 17, O2 of 92% on 3 L via nasal cannula. General: Awake, alert, and oriented x3. Elderly female, in some mild distress. CV: S1, S2. Regular rate and rhythm. Respiratory: Diminished breath sounds. Wheezing and rhonchi heard. Gastrointestinal: Abdomen is soft, nontender, nondistended. Positive bowel sounds. Extremities: No clubbing, cyanosis, or edema. Neurologic: Nonfocal. Laboratory Data: Labs are pending. Blood cultures no growth to date. Urine culture: Preliminary r eport shows 1+ yeast. Assessment And Plan: A 63-year-old female with. 1.Acute on chronic respiratory failure. The patient currently on 3 L via nasal cannula secondary to chronic obstructive pulmonary disease and pneumonia. Appreciate Pulmonology input. 2.Pneumonia, healthcare associated and possibly gram-negative pneumonia. The patient's left lower l obe and right upper lobe are affected on CT scan. Currently on Diflucan for possible fungal infectio n. Cultures are pending. Has some improvement in cough. We will continue to monitor. 3.Chronic obstructive pulmonary disease, chronic bronchitis. Continue with breathing treatments and steroids. Weaned off to p.o. steroids. Continue supplemental oxygen. 4.Gastroesophageal reflux disease without esophagitis. We will continue PPI. 5.History of non-Hodgkin's lymphoma, currently in remission. Follow up with outpatient Oncology. 6.Atrial fibrillation, paroxysmal. Currently in sinus rhythm. We will continue blood thinners. 7.Failure to thrive, BMI 17. We will continue protein supplementation. Disposition: Discharge home in the next 24 to 48 hours depending on clinical response, culture resul ts. /MODL Voice ID: [id number] Report ID: [id number]
[2019-04-16] MEDS: IPRATROPIUM BROM 0.5MG/2.5ML NEB SCH ×2 (02:00→07:50)
[2019-04-16] MEDS ORDERED: FUROSEMIDE 40 MG/4 ML VIAL IV ONE ×2 (02:42→02:45)
[2019-04-16 06:15] LABS: BUN Blood Urea Nitrogen 18 mg/dL (7-18); Bicarbonate 30 mmol/L (21-32); Glucose Level 116 mg/dL (74-106); Potassium 3.3 mmol/L (3.5-5.1); Sodium Level 139 mmol/L (136-145)
[2019-04-16 06:25] LABS: Absolute Lymphocytes (CBC) 0.1 K/uL (0.7-4.9); Basophils % 0.3 % (0-1.3); Eosinophils % 0.1 % (0-4.4); Hematocrit 37.9 % (36.0-45.0); Lymphocytes % 2.9 % (15.3-44.8); MPV 7.9 fL (7.6-11.3); Monocytes % 1.4 % (3.3-12.3); RBC Red Blood Cell Count 4.17 M/uL (3.86-4.86)
[2019-04-16] MEDS: PANTOPRAZOLE 40MG TABLET PO SCH (06:26)
[2019-04-16] MEDS: ARFORMOTEROL TARTRATE 15 MCG/2 ML VIAL.NEB NEB SCH ×2 (07:50→19:50)
[2019-04-16] MEDS: ENSURE ENLIVE 237 ML CAN PO SCH ×2 (08:22→21:02)
[2019-04-16] MEDS: SOTALOL HCL 80 MG TAB PO SCH ×2 (08:26→21:01)
[2019-04-16] MEDS: VALACYCLOVIR 500 MG TAB PO SCH (08:26)
[2019-04-16] MEDS: predniSONE 20 MG TAB PO SCH (08:26)
--- NOTE | 2019-04-16 08:43 | P.PN ---
Subjective Date of Service: 04/16/19 Chief Complaint: Pseudomonas lung infection Subjective: Improving (Patient is improving weak coughing up some productive phlegm ambulating heating) Review of Systems General: Weakness Respiratory: Cough, Dry, Shortness of Breath Physical Examination - Vital Signs Temperature: 99.6 F Blood Pressure: 125/81 Pulse: 97 Respirations: 34 Pulse Ox (%): 97 - Physical Exam General: Alert, In no apparent distress, Mild distress Respiratory: Expiratory wheezes Cardiovascular: No edema, Normal S1 S2 Assessment & Plan - Problems (Diagnosis) (1) COPD exacerbation Current Visit: No Status: Acute Plan: Patient now I Pseudomonas isolated from the sputum his resistant to levofloxacin start on meropenem patient is at risk for fungal superinfection continue with Diflucan labs chemistries reviewed white count is normal vital signs stable reduce dose of prednisone physical therapy
[2019-04-16] MEDS ORDERED: NA CHLORIDE 0.9% 500 ML IV ONE (08:45)
[2019-04-16] MEDS: Meropenem 1,000 MG in NA CHLORIDE 0.9% 100 ML IV SCH ×2 (08:59→21:01)
[2019-04-16] MEDS ORDERED: Meropenem 1000 MG/VIAL IV SCH (09:00)
[2019-04-16 09:32] LABS: Blood Morphology Comment NOT SEEN (NOT SEEN); Platelet Estimate ADEQ; Toxic Granulation 2+
--- NOTE | 2019-04-16 09:55 | RAD REPORT ---
EXAM DESCRIPTION: RAD - Chest Single View - 04/16/2019 9:34 am CLINICAL HISTORY: Rales, fibrosis COMPARISON: April 13, April 01 TECHNIQUE: AP portable chest image was obtained 0932 hours . FINDINGS: Prominent baseline interstitial fibrotic lung pattern is present. Lung markings have incre ased in the right base compared to the prior studies suspicious for new or recurrent right lung base pneumonia. No dense consolidation or mass. Heart and vasculature are normal. No measurable pleural ef fusion and no pneumothorax. No acute bony abnormality seen. No acute aortic findings suspected. IMPRESSION: Suspected right base pneumonia superimposed on chronic interstitial lung disease.
[2019-04-16] MEDS: FLUCONAZOLE 100 MG TAB PO SCH (10:45)
[2019-04-16] MEDS: predniSONE 10 MG TAB PO SCH ×2 (10:45→21:01)
[2019-04-16] MEDS: NA CHLORIDE 0.9% 1,000 ML IV SCH (11:56)
[2019-04-16] MEDS ORDERED: NA CHLORIDE 0.9% 1,000 ML IV SCH (12:00)
[2019-04-16] MEDS ORDERED: POTASSIUM CL SA 10 MEQ TAB PO ONE (14:00)
[2019-04-16] MEDS: IPRATROPIUM BROM 0.5MG/2.5ML NEB PRN ×2 (14:15→19:50)
[2019-04-16] MEDS: ALBUTEROL 2.5 MG/3 ML NEB SOL NEB PRN ×2 (14:15→19:50)
--- NOTE | 2019-04-16 16:09 | PN ---
Date of Progress Note: 04/16/2019 Subjective: The patient seen and examined. Chart reviewed and case discussed with RN and Dr. Santiago. Daughter at the bedside. Treatment plan explained, all questions answered. The patient is still having difficulty breathing, was on non-rebreather. The patient has low blood pressure requiring IV fluid bolus. Medications: List reviewed. Physical Examination: Vital Signs: Temperature 98.7, heart rate 93, blood pressure 74/41, improved to 91/52, respirations 20, O2 96% on 15 L non-rebreather. General: Awake, alert, oriented x3, ill-appearing female, in mild respiratory distress. CV: S1, S2. Peripheral pulses weak. Respiratory: Diminished breath sounds. Rhonchi heard, wheezing present. Gastrointestinal: Abdomen is soft, nontender, nondistended. Positive bowel sounds. Extremities: No clubbing, cyanosis, edema. Neurologic: Nonfocal. Laboratory Data: WBC 4.9, H and H 12.5 and 37.9, platelets 239, neutrophils 95% , 14% bands. Sodium 139, potassium 3.3, chloride 100, CO2 30, BUN 18, creatinine 0.61, glucose 116. Chest x-ray personally reviewed shows suspected right base pneumonia superimposed on chronic interstitial lung disease. Sputum cultures growing out Pseudomonas. Blood cultures, no growth to date. Assessment And Plan: A 63-year-old female with: 1. Iutsy-uj-isuinjn respiratory failure secondary to pneumonia, chronic obstructive pulmonary disease. 2. Pneumonia, healthcare associated secondary to gram-negative bacilli, Pseudomonas. IV antibiotics have been adjusted. We will continue meropenem for 2 weeks. The patient will need PICC line and placement. Family does not wish for her to go back home with home health. They prefer SNF. We will continue Diflucan for possible fungal infection. Blood cultures pending. No growth to date. 3. Chronic obstructive pulmonary disease, end-stage. We will continue nebulized treatments and p.o. steroids. The patient requiring 3 L of oxygen. Seen the patient currently on non-rebreather. We will check ABG. Chest x-ray shows right base pneumonia. 4. Acute hypotension. Continue with IV fluid bolus and continue with maintenance IV fluids. Watch out for signs of sepsis. 5. History of non-Hodgkin's lymphoma, currently in remission. Spoke with Dr. Santiago today. The patient was scheduled for maintenance treatment tomorrow. This will be rescheduled once the patient is off IV antibiotics. 6. Atrial fibrillation, paroxysmal, currently in sinus rhythm. The patient is on Xarelto for anticoagulation. Continue with rate control. 7. Failure to thrive. Albumin is low 2.9. She has mild protein calorie malnutrition. She also has a primary cachexia, low appetite, continues to lose weight. 8. Gastroesophageal reflux disease without esophagitis. Continue PPI. Disposition. [facility] facility placement after PICC line has been placed and blood pressure stabilizes. /MIGUEL A Voice ID: [id number] Report ID: [id number] TEQUILA
[2019-04-16] MEDS: RIVAROXABAN 20 MG TABLET PO SCH (16:49)
[2019-04-17] MEDS: NA CHLORIDE 0.9% 1,000 ML IV SCH ×2 (00:21→12:56)
[2019-04-17] MEDS: PANTOPRAZOLE 40MG TABLET PO SCH (05:55)
[2019-04-17] MEDS: ARFORMOTEROL TARTRATE 15 MCG/2 ML VIAL.NEB NEB SCH (08:40)
[2019-04-17] MEDS: Meropenem 1,000 MG in NA CHLORIDE 0.9% 100 ML IV SCH (08:44)
[2019-04-17] MEDS: FLUCONAZOLE 100 MG TAB PO SCH (08:47)
[2019-04-17] MEDS: VALACYCLOVIR 500 MG TAB PO SCH (08:47)
[2019-04-17] MEDS: predniSONE 10 MG TAB PO SCH (08:47)
[2019-04-17] MEDS: SOTALOL HCL 80 MG TAB PO SCH (08:48)
[2019-04-17] MEDS: ENSURE ENLIVE 237 ML CAN PO SCH (08:49)
--- NOTE | 2019-04-17 10:08 | RAD REPORT ---
EXAM DESCRIPTION: Chest Single View CLINICAL HISTORY: The patient is 63 years old and is Female; PICC placement TECHNIQUE: Frontal view of the chest. COMPARISON: Chest radiograph January 21, 2019. FINDINGS: LUNGS: The lungs are hyperinflated with chronic coarse interstitial markings. Superimpos ed opacity within the right lower lobe is present. PLEURAL SPACE: Unremarkable. No pneumothorax. HEART: The cardiac silhouette is stable. MEDIASTINUM: Unremarkable. BONES/JOINTS: Unremarkable. TUBES, LINES AND DEVICES: A right upper extremity PICC is present with the tip in the SVC. IMPRESSION: 1. A right upper extremity PICC is present with the tip in the SVC. 2. Right lower lobe atelectasis/developing infiltrate. Electronically signed by: Tawanna Velez MD 04/17/2019 5:55 AM CDT Due to temporary technical issues with the PACS/Fluency reporting system, reports are being signed by the in house radiologist as a courtesy to ensure prompt reporting. The interpreting radiologist is f ully responsible for the content of the report.
[2019-04-17] MEDS: IPRATROPIUM BROM 0.5MG/2.5ML NEB PRN (12:39)
[2019-04-17] MEDS: ALBUTEROL 2.5 MG/3 ML NEB SOL NEB PRN (12:39)
[2019-04-17] MEDS: RIVAROXABAN 20 MG TABLET PO SCH (17:06)
--- NOTE | 2019-04-18 14:08 | P.DS ---
Admission Date: 04/13/19 Discharge Date: 04/17/19 Disposition: TRANSFER TO SNF - REHAB Discharge Condition: FAIR Reason for Admission: Pseudomonas lung infection Consultations: Pulmonology - Problems (1) Cough Onset Date: 12/05/18 Status: Acute (2) Pneumonia Onset Date: 12/05/18 Status: Acute Qualifiers: Pneumonia type: due to unspecified organism (3) Pseudomonas aeruginosa infection Status: Acute (4) Supraventricular tachycardia Onset Date: 11/13/18 Status: Acute (5) COPD (chronic obstructive pulmonary disease) Onset Date: 01/20/18 Status: Chronic Qualifiers: COPD type: chronic bronchitis Chronic bronchitis type: unspecified Qualified Code(s): J42 - Unspecified chronic bronchitis (6) GERD (gastroesophageal reflux disease) Onset Date: 01/20/18 Status: Chronic Qualifiers: Esophagitis presence: esophagitis presence not specified Qualified Code(s) : K21.9 - Gastro-esophageal reflux disease without esophagitis Brief History of Present Illness: The patient is a 63-year-old female with past medical history of COPD on 2 L of oxygen at home, atrial fibrillation, on anticoagulation, gastroesophageal reflux disease, follicular lymphoma stage IV, Non-Hodgkin's, currently in remission, who was recently in [facility], was discharged last week, went to go see her bottom buffer and is currently on Levaquin and doxycycline. The patient has been having worsening shortness of breath, cough with sputum production and reports generalized weakness and malaise. The patient's symptoms are constant, moderate, progressively worsening. Symptoms worse with activity. The patient therefore came back to the ER for further evaluation. In the ER, her workup revealed hypoxia. The patient was placed on 3 L of oxygen via nasal cannula. The patient's chest x-ray showed opacities and the patient was given dose of Levaquin and then referred for admission. When seen in the ER, she was awake, alert, oriented x3, in some mild distress.. Hospital Course: Patient was admitted for acute on chronic respiratory failure. She is requiring 3 L of oxygen by nasal cannula. Pulmonology was consulted. She was placed on continuous O2 monitoring. She was started on IV antibiotics as well as Diflucan for pneumonia, possibly fungal. She was also continued with breathing treatments and steroids along with her other home medications. She was then considered to be a healthcare associated pneumonia. It was recommended that she be on IV antibiotics for 2 weeks. A PICC line was placed. Social work was consulted for senior living facility placement. She was accepted at [facility], and discharged 2 [facility] for rehab and IV antibiotics for 2 weeks. Her stay was complicated by episodes of hypotension, which responded well to IV fluids. Prior to discharge from our she was hemodynamically stable, alert oriented in no acute distress Vital Signs/Physical Exam: Temp Pulse Resp BP Pulse Ox 98.6 F 77 18 102/52 L 97 04/17/19 16:00 04/17/19 16:00 04/17/19 16:00 04/17/19 16:00 04/17/19 16:00 General: Alert, In no apparent distress, Cachectic HEENT: Atraumatic, PERRLA, EOMI Neck: Supple, JVD not distended Respiratory: Clear to auscultation bilaterally, Normal air movement Cardiovascular: Regular rate/rhythm, Normal S1 S2 Gastrointestinal: Normal bowel sounds, No tenderness Musculoskeletal: No tenderness Integumentary: No rashes Neurological: Normal speech, Normal tone, Normal affect Lymphatics: No axilla or inguinal lymphadenopathy Laboratory Data at Discharge: WBC 4.9 K/uL (4.3-10.9) D 04/16/19 05:25 Hgb 12.5 g/dL (12.0-15.0) 04/16/19 05:25 Hct 37.9 % (36.0-45.0) D 04/16/19 05:25 Plt Count 239 K/uL (152-406) D 04/16/19 05:25 PT 17.9 SECONDS (9.5-12.5) H 04/13/19 06:32 INR 1.54 04/13/19 06:32 Sodium 139 mmol/L (136-145) 04/16/19 05:25 Potassium 4.1 mmol/L (3.5-5.1) 04/16/19 20:15 BUN 18 mg/dL (7-18) 04/16/19 05:25 Creatinine 0.61 mg/dL (0.55-1.3) 04/16/19 05:25 Glucose 116 mg/dL (74-106) H 04/16/19 05:25 Magnesium 2.0 mg/dL (1.8-2.4) 04/13/19 06:32 Total Bilirubin 0.8 mg/dL (0.2-1.0) 04/13/19 06:32 AST 31 U/L (15-37) 04/13/19 06:32 ALT 41 U/L (12-78) 04/13/19 06:32 Alkaline Phosphatase 77 U/L (45-117) 04/13/19 06:32 Lipase 267 U/L (73-393) 04/13/19 06:32 Home Medications: Benzonatate [Tessalon Perle] 100 mg PO Q8H PRN 04/13/19 Doxycycline Hyclate 100 mg PO BID 04/13/19 Ondansetron [Zuplenz] 4 mg PO Q12H PRN 04/13/19 Pantoprazole [Protonix Tab*] 1 tab PO DAILY 04/13/19 Rivaroxaban [Xarelto*] 20 mg PO DAILY 04/13/19 Sotalol HCl [Sorine] 80 mg PO BID 04/13/19 Tiotropium Br/Olodaterol HCl [Stiolto Respimat Inhal [place]] 2.5 mcg IH BID PRN 04/13/19 Valacyclovir [Valtrex*] 1 tab PO DAILY 04/13/19 methylPREDNISolone [Methylprednisolone] 4 mg PO DAILY 04/13/19 Meropenem [Merrem 1 GM/100 ML NS IVPB] 1 gm IV Q12H 14 Days #28 bag 04/17/19 New Medications: Meropenem [Merrem 1 GM/100 ML NS IVPB] 1 gm IV Q12H 14 Days #28 bag Diet: Regular Activity: Ad chris Followup: Armen Waters MD [ACTIVE - CAN ADMIT] - (call to schedule appointment) Time spent managing pt's care (in minutes): 55
[2019-04-18 14:24] VITALS: BP 102/52; TEMP 98.6
[2019-04-18 19:39] VITALS: BMI 16.7
== END 2019-04-17 17:24 | DRG 189 ==
LOC: ER 06:07 → ERHOLD 07:30 → 4TH 09:33
PROVIDERS: ADMIT Family Medicine; ATTEND Family Medicine
PROC: 02HV33Z Insertion of Infusion Device into Superior Vena Cava, Percutaneous Approach (ICD-10-PCS; principal; 2019-04-17)
DX: J96.20 Acute and chronic respiratory failure, unspecified whether with hypoxia or hypercapnia (principal); J15.1 Pneumonia due to Pseudomonas; J44.0 Chronic obstructive pulmonary disease with (acute) lower respiratory infection; J44.1 Chronic obstructive pulmonary disease with (acute) exacerbation; R64 Cachexia; Z68.1 Body mass index [BMI] 19.9 or less, adult; J98.11 Atelectasis; E44.1 Mild protein-calorie malnutrition; I47.1 Supraventricular tachycardia; Z99.81 Dependence on supplemental oxygen; I95.9 Hypotension, unspecified; R62.7 Adult failure to thrive; Y95 Nosocomial condition; I48.0 Paroxysmal atrial fibrillation; K21.9 Gastro-esophageal reflux disease without esophagitis; Z79.01 Long term (current) use of anticoagulants; Z85.72 Personal history of non-Hodgkin lymphomas; Z88.5 Allergy status to narcotic agent; Z88.2 Allergy status to sulfonamides
CPT/HCPCS: 36415; 71045; 71250; 80048; 80076; 81003; 81015; 82962; 83605; 83690; 83735; 83880; 84132; 84484; 85025; 85610; 87040; 87070; 87077; 87086; 87088; 87186; 87205; 93005; 94640; 96374; 96375; 97163; 99285; J1450; J1940; J2405; J2920; J2930; J7030; J7512; J7605